=== PATIENT | female | born 1975 | race Caucasian/White ===

== ENCOUNTER 2024-07-11 14:59 | Emergency (ER) | payer OTHER, SELFPAY ==
--- OUTSIDE RECORDS SUMMARY | 2024-07-11 15:01 | XMS_ITS | Encounter Summary ---
Author Organization [facility] Healthcare Address [address] [place] [address] Care Team Providers Care [employer]ayer Name Role Phone Marcin Norwood Primary Care Provider [phone] Encounter Details Date Type Department Care Team (Late st Contact Info) Description 05/19/2024 Results Follow-Up [facility] Diabetes Endocrine Care at [address] [place] [phone] Domonique Burch, TECHNICAL SALES MANAGER [address] [facility] [address] [place] [address] Social History Tobacco Use Types Packs/Day Years Used Date Smoking Tobacco: Former Cigarettes Smokeless Tobacco: Never Comments:Pt will have a Ciga rello occasionally Once a month Alcohol Use Standard Drinks/Week Comments Yes 0 (1 standard drink = 0.6 oz pur e alcohol) [facility] Utilities Answer Date Recorded In the past 12 months has [employer], gas, oil, or water [employer] threatened to shut off services in your home? No 01/03/2024 Social Connection and Isolat ion Panel [NHANES] Answer Date Recorded In a typical week, how many times do you talk on the phone with family, friends, or neighbors? More than three times a week 01/03/2024 How often do you get togethe r with friends or relatives? More than three times a week 01/03/2024 How often do you attend [facility] or buddhist services? Never 01/03/2024 Do you belong to any clubs o r organizations such as mu-ism groups, unions, fraternal or athletic groups, or school groups? No 01/03/2024 How often do you attend meet ings of the clubs or organizations you belong to? Never 01/03/2024 Are you , , di vorced, , never , or living with a partner? 01/03/2024 AUDIT-C Answer Date Recorded Q1: How often do you have a drink containing alcohol? Never 02/07/2024 Q2: How many drinks containi ng alcohol do you have on a typical day when you are drinking? Patient does not drink Q3: How often do you have si x or more drinks on one occasion? Never 02/07/2024 Overall Financial Resource Strain (CARDIA) Answe r Date Recorded How hard is it for you to pa y for the very basics like food, housing, medical care, and heating? Not hard at all 01/03/2024 Hunger Vital Sign Answer Date Recorded Within the past 12 months, y ou worried that your food would run out before you got the money to buy more. Never true 01/03/20 24 Within the past 12 months, t he food you bought just didn't last and you didn't have money to get more. Never true 01/03/2024 PRAPARE - Transportation Answer Date Re corded In the past 12 months, has l ack of transportation kept you from medical appointments or from getting medications? No 12/17 In the past 12 months, has l ack of transportation kept you from meetings, work, or from getting things needed for daily living? No 01/03/2024 Housing Stability Vital Sign Answer Manuelito e Recorded In the last 12 months, was t here a time when you were not able to pay the mortgage or rent on time? No 01/03/2024 In the past 12 months, how m any times have you moved where you were living? 0 01/03/2024 At any time in the past 12 m [facility], were you homeless or living in a prison (including now)? No 01/03/2024 Personal Safety Answer Date Recorded Have you ever been in or are you currently in a harmful physical or emotional relationship or is someone making you feel afraid or unsafe? 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
--- OUTSIDE RECORDS SUMMARY | 2024-07-11 15:02 | XMS_ITS | Referral Summary ---
Author Organization [facility] Address [address] [place] [address] Care Team Providers Care Angular Developer Name Role Phone Marcin Norwood Primary Care Provider [phone] Encounters Date Type Department Care Team Description 05/19/2024 Results Follow-Up [facility] Diabetes Endocrine Care at [address] [address] Domonique Liriano NP 05/16/2024 8:50 AM SENIOR BUSINESS BROKER - 05/16/2024 11:59 PM SENIOR BUSINESS BROKER Hospital Encounter [address] [id number] Type 2 diabetes mellitus with microalbuminuria, without long-term current use of insulin (HCC) Discharge Disposition: Discharge to home or self care 05/16/2024 8:45 AM SENIOR BUSINESS BROKER Lab [facility] Outpatient Lab at [address] [address] Type II diabetes mellitus with renal manifestations (HCC) (Primary Dx); Proteinuria 05/16/2024 Orders Only [facility] Diabetes Endocrine Care at [address] [address] ProviderYanira MD 05/16/2024 8:00 AM SENIOR BUSINESS BROKER Office Visit [facility] Medical [facility] Diabetes Endocrine Care at [address] [address] Domonique Liriano, JOSELUIS Type 2 diabetes mellitus with microalbuminuria, without long-term current use of insulin (HCC) (Primary Dx); Hyperlipidemia associated with type 2 diabetes mellitus (HCC); Acquired hypothyroidism; Primary hypertension; Status post sleeve gastrectomy; Class 3 severe obesity due to excess calories with serious comorbidity and body mass index (BMI) of 40.0 to 44.9 in adult (HCC) 05/13/2024 8:30 AM SENIOR BUSINESS BROKER Office Visit [facility] [address] [facility] [address] [place] [address] Adrián Romero MD Status post sleeve gastrectomy (Primary Dx) 05/06/2024 8:30 AM SENIOR BUSINESS BROKER - 05/06/2024 11:59 PM SENIOR BUSINESS BROKER Hospital Encounter [facility] Nutrition and Diabetic Education [address] [facility] [place] [facility] [id number] [place] [address] Sierra, Fabby Perales RD Discharge Disposition: Discharge to home or self care from Last 3 Months Allergies No known active allergies Medications levothyroxine (SYNTHROID) 112 mcg tablet TK 1 T PO D 6 Active citalopram (CeleXA) 40 mg tablet Take 1 tablet (40 mg total) by mouth daily 2 Active OneTouch Verio Flex meter misc USE TO TEST BLOOD SUGARS DAILY. E11.65 100 each 3 3 Active pregabalin (LYRICA) 150 mg capsule Take 1 capsule (150 mg total) by mouth 2 (two) times a day 3 Active polyethylene glycol (MIRALAX) 17 gram/dose bulk powder TAKE 17 GRAMS MIXED DIRECTED ONCE DAILY NEEDED 510 g 4 3 Active blood glucose diagnostic (OneTouch Verio test strips) strip Use to test blood sugar 1 Time/day. 400 each 3 4 Active atorvastatin (LIPITOR) 40 mg tablet TAKE 1 TABLET BY MOUTH DAILY 90 tablet 3 4 Active dulaglutide (TRULICITY) 1.5 mg/0.5 mL pen injectorIndicat ions:type 2 diabetes mellitus Inject 0.5 mL (1.5 mg total) under the skin every 7 days E11.65 2 mL 11 4 Active Alcohol Prep Pads pads, medicatedIndica tions:Type 2 diabetes mellitus with microalbuminuri a, without long-term current use of insulin (HCC) USE ONE TOPICALLY DAILY 100 each 4 4 Active docusate sodium (COLACE) 100 mg capsuleIndicati ons:constipatio n Take 1 capsule (100 mg total) by mouth 2 (two) times a day for 14 days 28 capsule 4 Active famotidine (PEPCID) 20 mg tablet Take 1 tablet (20 mg total) by mouth 2 (two) times a day 60 tablet 11 4 01/03/20 25 Active OneTouch Delica Plus Lancet 33 gauge misc USE TO CHECK BLOOD SUGAR 3 TIME DAILY 300 each 3 4 Active losartan (COZAAR) 50 mg tablet TAKE 1 TABLET (50 MG TOTAL) BY MOUTH DAILY 90 tablet 3 4 07/03/19 25 Discontinu ed(Therapy completed) Active Problems Problem Noted Date Diagnosed Date Status post sleeve gastrectomy 05/13/2024 Assessment & Plan (05/13/2024 8:57 AM SENIOR BUSINESS BROKER): Continue small frequent meals encouraging protein intake. Continue multivitamin, calcium and vitamin-D. Exercise as tolerated. We will see the patient back in 6 months. Continue your follow up with the dietitian. Call us back with any further questions or concerns. Class 3 severe obesity due t o excess calories with serious comorbidity and body mass index (BMI) of 40.0 to 44.9 in adult 12/21/2023 Sleep apnea in adult 09/05/2023 Heartburn 09/04/2023 Hyperlipidemia associated with type 2 diabetes m sanjana 05/17/2023 Assessment & Plan (11/15/2023 8:51 AM CDT): This is a chronic condition which is at goal . Goal is LDL less than 70 Continue atorvastatin Encouraged to eat healthy, include fresh fruits and vegetables daily and avoid eating fried foods more than once per week. Assessment & Plan (05/17/2023 8:35 AM SENIOR BUSINESS BROKER): This is a chronic condition which is not at goal of LDL less than 70 Continue atorvastatin Encouraged to eat healthy, include fresh fruits and vegetables daily and avoid eating fried foods more than once per week. Encouraged to take medications as prescribed. Lymphedema associated with obesity 02/13/2023 Assessment & Plan (02/13/2023 10:19 AM SENIOR BUSINESS BROKER): This is a chronic condition which is worse on the left than the right Occupational [facility] ordered at [facility] for evaluation. Primary hypertension 11/13/2022 Assessment & Plan (11/15/2023 8:52 AM CDT): This is a chronic condition which is at goal. Goal is less than 140/90 Continue losartan/HCTZ Encouraged to monitor weight and B/P at home. Encouraged to void caffeine and excessive alcohol consumption as this will elevate B/P Assessment & Plan (05/17/2023 8:33 AM SENIOR BUSINESS BROKER): This is a chronic condition which is at goal of less than 140/90 Personally reviewed labs. Continue losartan, hydrochlorothiazide Encouraged to monitor weight and B/P at home Encouraged to take medications as prescribed. Assessment & Plan (02/13/2023 9:11 AM SENIOR BUSINESS BROKER): This is a chronic condition which is at goal of less than 140/90 Personally reviewed labs. Continue losartan hydrochlorothiazide Encouraged to monitor weight and B/P at home Encouraged to take medications as prescribed. Assessment & Plan (11/13/2022 9:57 AM CDT): This is a chronic condition which is at goal of less than 140/90 Reports dizziness with current medication regimen Personally reviewed labs. Stop atenolol/chlorthalidone. Starts losartan 50 mg with 25 mg of hydrochlorothiazide Encouraged to monitor weight and B/P at home and call blood pressures in 1 week Encouraged to take medications as prescribed. Cellulitis of right lower extremity 12/01/2021 Irritable bowel syndrome wit h both constipation and diarrhea 11/23/2021 Gastroesophageal reflux disease without esophagi tis 11/23/2021 Intermittent diarrhea 11/03/2021 Colon cancer screening 11/03/2021 Overview (11/03/2021): Added automatically from request for surgery [id number] Chronic constipation 11/02/2021 Assessment & Plan (11/02/2021 9:15 AM CDT): This is a chronic condition which has been going on for 3 years. Has bowel movement 1-2 times/week. Sometime alternating diarrhea. amb referral to GI. Type 2 diabetes mellitus wit h microalbuminuria, without long-term current use of insulin 10/11/2021 Assessment & Plan (11/15/2023 8:50 AM CDT): This is a chronic condition which is at goal without hypoglycemia . Goal is less than 7%. Personally reviewed most recent A1c - Lab Results Component Value Date HGBA1C 5.1 11/15/2023 Personally reviewed POC blood sugar- at goal of 80-180 Lab Results Component Value Date POCGLU 105 11/15/2023 Medication- reduce Trulicity to 1.5 mg postoperatively. Do not take till 2 weeks after surgery and less approved by Dr. Romero Monitor blood sugar 3 times a week and for signs or symptoms of hypoglycemia Encouraged annual eye exam. Monofilament foot exam completed. Protective senses intact eGFR- 77 Kidney function-normal Urine microalbumin/creatinine ratio - elevated. Goal is <30. Continue losartan, hydrochlorothiazide Assessment & Plan (06/14/2023 10:59 AM CDT): Continue with Trulicity and watching your glycemic control. Assessment & Plan (05/17/2023 8:33 AM SENIOR BUSINESS BROKER): This is a chronic condition which is at goal of less than 7%. Personally reviewed most recent A1c - Lab Results Component Value Date HGBA1C 5.3 05/17/2023 Personally reviewed POC blood sugar- at goal 80-180 Lab Results Component Value Date POCGLU 98 05/17/2023 Medication- Increase trulicity 4.5mg weekly Monitor blood sugar daily. Encouraged annual eye exam. Monofilament foot exam completed. protective senses intact. Neuropathy controlled with Lyrica Personally reviewed CMP eGFR- 78 Kidney function- abnormal Urine microalbumin/creatinine ratio - not at goal <30 treated with losartan, hydrochlorothiazide B/P today- at goal of <140/90. continue losartan, hydrochlorothiazidet Personally reviewed lipid panel. Not at Goal of less than 70. Continue atorvastatin Assessment & Plan (02/13/2023 9:10 AM SENIOR BUSINESS BROKER): This is a chronic condition which is at goal of less than 7%. Personally reviewed most recent A1c - Lab Results Component Value Date HGBA1C 5.4 02/13/2023 Personally reviewed POC blood sugar- at goal 80-180 Lab Results Component Value Date POCGLU 105 02/13/2023 Medication- Continue trulicity 3mg weekly Monitor blood sugar daily Encouraged annual eye exam. Monofilament foot exam completed. protective senses intact Treated with Lyrica Personally reviewed CMP eGFR- 78 Kidney function- normal Urine microalbumin/creatinine ratio - at goal <30 treated with losartan, hydrochlorothiazide B/P today- at goal of <140/90. continue losartan hydrochlorothiazide Personally reviewed lipid panel. Not at Goal of less than 70. Continue atorvastatin Assessment & Plan (11/13/2022 9:54 AM CDT): This is a chronic condition which is at goal of less than 7%. Personally reviewed most recent A1c - Lab Results Component Value Date HGBA1C 5.5 07/14/2022 Personally reviewed POC blood sugar- at goal 80-180 Lab Results Component Value Date POCGLU 117 07/14/2022 Medication- Continue continue Trulicity 1.5 mg weekly.- to promote further weight loss Monitor blood sugar daily Encouraged annual eye exam. Monofilament foot exam completed. protective senses intact Personally reviewed CMP eGFR- 78 Kidney function- abnormal Urine microalbumin/creatinine ratio - not at goal <30 not treated with TYRESE/ARB. Stop atenolol/ chlorthalidone and start losartan 50mg daily and HCTZ 25mg daily. B/P today- at goal of <140/90. continue TYRESE/ARB Stop atenolol/ chlorthalidone and start losartan 50mg daily and HCTZ 25mg daily. Personally reviewed lipid panel. Not at Goal of less than 70. Increase atorvastatin. Assessment & Plan (07/14/2022 9:39 AM CDT): This is a chronic condition which is at goal of less than 7%. Without hypoglycemia Personally reviewed most recent A1c - Lab Results Component Value Date HGBA1C 5.5 07/14/2022 Personally reviewed POC blood sugar- at goal 80-180 Lab Results Component Value Date POCGLU 117 07/14/2022 Medication- Continue Trulicity 1.5 mg weekly Monitor blood sugar daily Encouraged annual eye exam. Monofilament foot exam completed. loss of protective senses. Urine microalbumin/creatinine ratio - at goal <30 Personally reviewed CMP eGFR- 94 Kidney function- normal B/P today- at goal of <140/90. Personally reviewed lipid panel. at Goal of less than 70. Not taking statin therapy at this time Assessment & Plan (03/16/2022 9:33 AM SENIOR BUSINESS BROKER): This is a chronic condition which is improving and at goal of less than 7%- due to weight loss. Personally reviewed most recent A1c - Lab Results Component Value Date HGBA1C 6.0 03/16/2022 Personally reviewed blood sugar- POC-125 blood sugar at goal. Medication- increase Trulicity 1.5mg weekly- Denies history of pancreatitis. Monitor blood sugar daily alternating am/pm. Encouraged annual eye exam. Monofilament foot exam completed, protective senses intact Urine microalbumin/creatinine ratio - At goal <30. not treated with TYRESE/ARB Personally reviewed BUN, creatinine, GFR-94 -Kidney function- normal, B/P today- at goal of <140/90 after 5 minutes of rest. Not on TYRESE/ARB Personally reviewed lipid panel. At goal of less than 70. Continue on atorvastatin. Has seen Diabetes Education. Assessment & Plan (12/14/2021 10:54 AM CDT): This is a chronic condition which is improving but not at goal. Personally reviewed most recent A1c - Lab Results Component Value Date HGBA1C 8.7 (H) 09/09/2021 Reports A1c last week with Julio Norwood was close to goal. Will obtain most recent labs. goal less than 7% Personally reviewed blood sugar- POC-128 blood sugar at goal. Lab Results Component Value Date GLUCOSE 125 12/09/2021 Medication- Continue on Trulicity 0.75mg weekly- Denies history of pancreatitis. Reports constipation. Will not increase until constipation is evaluated. Monitor blood sugar daily alternating am/pm. Encouraged annual eye exam. Monofilament foot exam completed, protective senses intact Urine microalbumin/creatinine ratio - Needed unable to void. goal <30. not treated with TYRESE/ARB Personally reviewed BUN, creatinine, GFR-94 -Kidney function- normal, B/P today- at goal. Goal is <140/90. Not on TYRESE/ARB Personally reviewed lipid panel. Goal of less than 70. at goal. Continue on atorvastatin. Has seen Diabetes Education. Assessment & Plan (11/02/2021 11:13 AM CDT): This is a chronic condition which is not at goal. Personally reviewed most recent A1c - Lab Results Component Value Date HGBA1C 8.7 (H) 09/09/2021 goal less than 7% Personally reviewed blood sugar- POC-128 blood sugar at goal. Lab Results Component Value Date GLUCOSE 195 09/09/2021 Medication- Continue on Trulicity 0.75mg weekly- Denies history of pancreatitis. Reports constipation. Will not increase until constipation is evaluated. Monitor blood sugar daily alternating am/pm. Encouraged annual eye exam. Monofilament foot exam completed, protective senses intact Urine microalbumin/creatinine ratio - Needed unable to void. goal <30. not treated with TYRESE/ARB Personally reviewed BUN, creatinine, GFR-91 -Kidney function- normal, B/P today- at goal. Goal is <140/90 and as close to 120/80 as possible. Not on TYRESE/ARB Personally reviewed lipid panel. Goal of less than 70. at goal. Continue on atorvastatin. Referred to Diabetes Education- has appt. Next week. Assessment & Plan (10/11/2021 6:11 PM CDT): This is a chronic condition which is not at goal. Personally reviewed most recent A1c - Lab Results Component Value Date HGBA1C 8.7 (H) 09/09/2021 goal less than 7% Personally reviewed blood sugar- Lab Results Component Value Date GLUCOSE 195 09/09/2021 not at goal 80-180 Medication- Start Trulicity 0.75mg weekly- instructed on use of trulicity pen. Denies history of pancreatitis Monitor blood sugar daily alternating am/pm. Encouraged annual eye exam. Monofilament foot exam completed, protective senses intact Urine microalbumin/creatinine ratio - Needed unable to void. goal <30. not treated with TYRESE/ARB Personally reviewed BUN, creatinine, GFR-91 -Kidney function- normal, B/P today- at goal. Goal is <140/90 and as close to 120/80 as possible. Not on TYRESE/ARB Personally reviewed lipid panel. Goal of less than 70. at goal. Continue on atorvastatin. Referred to Diabetes Education Acquired hypothyroidism 10/11/2021 Assessment & Plan (11/15/2023 8:51 AM CDT): This is a chronic condition which is at goal of TSH between 0.3 to 4.2 mclUnits/ml Lab Results Component Value Date TSH 2.20 06/25/2023 TSH 0.77 11/07/2022 TSH 3.08 03/16/2022 Continue Levothryoxine 112 mcg po daily in am Discussed the importance of taking Levothryoxine on a empty stomach, which means one hour before eating or two hours after eating, food in the stomach will interfere with absorption of Levothyroxine, Calcium, antacids and iron supplements will interfere with the absorption of Levothyroxine, encouraged to take these at a different time of the day. Assessment & Plan (05/17/2023 8:33 AM SENIOR BUSINESS BROKER): This is a chronic condition which is at goal of TSH between 0.3 to 4.2 mclUnits/ml Personally reviewed lab. Lab Results Component Value Date TSH 0.77 11/07/2022 TSH 3.08 03/16/2022 TSH 4.10 12/02/2021 Continue Levothryoxine 112 mcg po daily in am Discussed the importance of taking Levothryoxine on a empty stomach, which means one hour before eating or two hours after eating. Discussed food in the stomach will interfere with absorption of Levothyroxine. Discussed Calcium, antacids and iron supplements will interfere with the absorption of Levothyroxine, encouraged to take these at a different time of the day. Assessment & Plan (11/13/2022 9:11 AM CDT): This is a chronic condition which is not at goal of TSH between 0.3 to 4.2 mclUnits/ml Personally reviewed lab. Lab Results Component Value Date TSH 0.77 11/07/2022 TSH 3.08 03/16/2022 TSH 4.10 12/02/2021 Continue Levothryoxine 112 mcg po daily in am Discussed the importance of taking Levothryoxine on a empty stomach, which means one hour before eating or two hours after eating. Discussed food in the stomach will interfere with absorption of Levothyroxine. Discussed Calcium, antacids and iron supplements will interfere with the absorption of Levothyroxine, encouraged to take these at a different time of the day. Assessment & Plan (07/14/2022 9:40 AM CDT): This is a chronic condition which is at goal of TSH between 0.3 to 4.2 mclUnits/ml Personally reviewed lab. Lab Results Component Value Date TSH 3.08 03/16/2022 TSH 4.10 12/02/2021 TSH 2.11 09/09/2021 Continue Levothryoxine 112 mcg po daily in am Discussed the importance of taking Levothryoxine on a empty stomach, which means one hour before eating or two hours after eating. Discussed food in the stomach will interfere with absorption of Levothyroxine. Discussed Calcium, antacids and iron supplements will interfere with the absorption of Levothyroxine, encouraged to take these at a different time of the day. Assessment & Plan (03/16/2022 9:30 AM SENIOR BUSINESS BROKER): .robert This is a chronic condition which is stable and at goal. Personally reviewed lab. Lab Results Component Value Date TSH 4.10 12/02/2021 TSH 2.11 09/09/2021 TSH 4.27 (H) 03/09/2021 Goal is for TSH to be between 0.3 to 4.2 mclUnits/ml Continue Levothryoxine 112 mcg po daily in am Will repeat TSH reflux to T4 due to weight loss. Discussed the importance of taking Levothryoxine on a empty stomach, which means one hour before eating or two hours after eating. Discussed food in the stomach will interfere with absorption of Levothyroxine. Discussed Calcium, antacids and iron supplements will interfere with the absorption of Levothyroxine, encouraged to take these at a different time of the day. Assessment & Plan (12/14/2021 10:55 AM CDT): This is a chronic condition which is stable and at goal. Personally reviewed lab. Lab Results Component Value Date TSH 4.10 12/02/2021 TSH 2.11 09/09/2021 TSH 4.27 (H) 03/09/2021 Goal is for TSH to be between 0.3 to 4.2 mclUnits/ml Continue Levothryoxine 112 mcg po daily in am Discussed the importance of taking Levothryoxine on a empty stomach, which means one hour before eating or two hours after eating. Discussed food in the stomach will interfere with absorption of Levothyroxine. Discussed Calcium, antacids and iron supplements will interfere with the absorption of Levothyroxine, encouraged to take these at a different time of the day. Assessment & Plan (10/11/2021 6:16 PM CDT): This is a chronic condition which is stable and at goal. Personally reviewed lab. Lab Results Component Value Date TSH 2.11 09/09/2021 TSH 4.27 (H) 03/09/2021 TSH 2.75 03/09/2020 Goal is for TSH to be between 0.3 to 4.2 mclUnits/ml Continue Levothryoxine 112 mcg po daily in am Discussed the importance of taking Levothryoxine on a empty stomach, which means one hour before eating or two hours after eating. Discussed food in the stomach will interfere with absorption of Levothyroxine. Discussed Calcium, antacids and iron supplements will interfere with the absorption of Levothyroxine, encouraged to take these at a different time of the day. Mass of soft palate 10/16/2019 Assessment & Plan (10/16/2019 10:15 AM CDT): Excision of Left soft palate mass in Office Risks and complications: Anesthesia, bleeding, infection, benign versus malignant pathology, recurrence of lesion, injury to arteries, nerves and veins, scarring and need for further treatment Laryngopharyngeal reflux (LPR) 10/16/2019 Assessment & Plan (10/16/2019 10:15 AM CDT): Pepcid (famotidine) 40 mg at bedtime if no improvement in reflux in 6-8 weeks, increase to twice daily LPR discussed and Handout provided Resolved Problems Problem Noted Date Diagnosed Date Resolved Date Class 3 severe obesity due t o excess calories with serious comorbidity and body mass index (BMI) of 50.0 to 59.9 in adult 10/11/2021 Assessment & Plan (02/07/2024 9:39 AM SENIOR BUSINESS BROKER): Continue to advance diet as laid out in post bariatric handout. We have encouraged protein intake above all other p.o.. She can slowly start to increase physical activity as tolerated. Continue multivitamin, calcium and vitamin-D. Continue follow up with the dietitian and support group. We will see her back in 3 months. She will call us sooner if anything changes. Assessment & Plan (01/10/2024 10:30 AM CDT): Continue fluid intake and protein supplementation. No submerging incisions for another week. No heavy lifting for 4 weeks. Multivitamin, calcium and vitamin-D. Continue to advance diet as laid out in post bariatric handout. We will see her back in 1 month. She will call us sooner if anything changes. Assessment & Plan (12/04/2023 10:20 AM CDT): Only thing pending for the patient to submit to insurance for precertification is a drug screen. She has a medical marijuana card so we are awaiting to see if that is going to affect things with her insurance. Once that has been defined she will get her urine drug screen as well as nicotine screen and then we will submit everything to insurance. Continue small frequent meals. Exercise as tolerated. Assessment & Plan (11/15/2023 8:52 AM CDT): This is a chronic condition which has improved Bariatric surgery scheduled for 12/03/2023 Eighteen lbs. Weight loss since last office visit Encouraged healthy eating which includes a low carb diet. Avoiding processed foods, sweets and fried foods. Encouraged 30 minutes of walking at least 5 days per week Discussed that exercise can be broken down into small sessions- for example 2- 15 minutes sessions or 3- 10 minutes sessions. Assessment & Plan (06/14/2023 11:00 AM CDT): Given their past success the patient would be a good candidate for weight loss surgery. We have gone over options such as the bypass and sleeve gastrectomy. We have also discussed risks and benefits such as blood clots, staple line leak as well as new or worsening reflux symptoms. They are in understanding. During this time will have them seen by the dietitian and psych. As we get closer to the time of surgery we will set him up for an EGD to look for hiatal hernia, H pylori or other gastric pathology. We will see them back in 4 weeks. They are in understanding of the plan. We have gone over small frequent meals shooting for a goal calorie intake of around 1600 spread throughout 4-5 meals. We have discussed not eating late at night. We have discussed cardiovascular exercise. Greater than 15 minutes was spent in counseling the patient on diet and exercise with regards to her morbid obesity. Assessment & Plan (05/17/2023 8:34 AM SENIOR BUSINESS BROKER): This is a chronic condition which has slightly improved She has lost an additional 4 lb since her last office visit Increase Trulicity to 4.5 mg weekly Ambulatory referral to Bariatric surgery/Dr. Romero Encouraged continue healthy eating and exercise as tolerated Assessment & Plan (02/13/2023 9:11 AM SENIOR BUSINESS BROKER): This is a chronic condition which continues 7 lb weight loss since last office visit Encouraged increase ambulation Discussed increasing Trulicity but since she is still losing weight we will maintain at current dose Assessment & Plan (02/13/2023 9:07 AM SENIOR BUSINESS BROKER): >>ASSESSMENT AND PLAN FOR BODY MASS INDEX (BMI) 50.0-59.9, ADULT (HCC) WRITTEN ON 03/16/2022 9:30 AM BY DOMONIQUE LIRIANO, JOSELUIS This is a chronic condition which is improving. 36 lbs weight loss over last 5 months Total weight loss = 60lbs. In the last year. Has seen diabetes education and nutritional couseling increased trulicity 1.5mg weekly to promote weight loss. Assessment & Plan (02/13/2023 9:07 AM SENIOR BUSINESS BROKER): >>ASSESSMENT AND PLAN FOR BODY MASS INDEX (BMI) 50.0-59.9, ADULT ([facility]) WRITTEN ON 07/14/2022 9:41 AM BY DOMONIQUE LIRIANO NP This is a chronic condition which is improving Further 22 lb weight loss since last office visit. Total weight loss since 10/07 equals 22 lb Continue Trulicity 1.5 mg Discussed increasing exercise in swimming pool Just walking in the pool . Assessment & Plan (02/13/2023 9:07 AM SENIOR BUSINESS BROKER): >>ASSESSMENT AND PLAN FOR CLASS 3 SEVERE OBESITY DUE TO EXCESS CALORIES WITH SERIOUS COMORBIDITY AND BODY MASS INDEX (BMI) OF 50.0 TO 59.9 IN ADULT ([facility]) WRITTEN ON 11/13/2022 9:54 AM BY DOMONIQUE LIRIANO, JOSELUIS This is a chronic condition which is improving 8 lb weight loss since last office visit Increase Trulicity to 3 mg weekly Encourage continue weight loss and exercise >>ASSESSMENT AND PLAN FOR BODY MASS INDEX (BMI) 50.0-59.9, ADULT ([facility]) WRITTEN ON 11/13/2022 9:54 AM BY DOMONIQUE LIRIANO NP This is a chronic condition which is improving 8 lb weight loss since last office visit Increase Trulicity to 3 mg weekly Encourage continue weight loss and exercise Assessment & Plan (02/13/2023 9:07 AM SENIOR BUSINESS BROKER): >>ASSESSMENT AND PLAN FOR CLASS 3 SEVERE OBESITY DUE TO EXCESS CALORIES WITH SERIOUS COMORBIDITY AND BODY MASS INDEX (BMI) OF 50.0 TO 59.9 IN ADULT ([facility]) WRITTEN ON 12/14/2021 10:54 AM BY DOMONIQUE LIRIANO, COAGULATING BATH MIXER This is a chronic condition which is improving by 13 lb weight loss. Encouraged weight loss and exercise Referred to diabetes education and nutritional couseling Continue trulicity 0.75mg weekly to promote weight loss. >>ASSESSMENT AND PLAN FOR BODY MASS INDEX (BMI) 50.0-59.9, ADULT ([facility]) WRITTEN ON 12/14/2021 10:55 AM BY DOMONIQUE LIRIANO, JOSELUIS This is a chronic condition which is improving. 13 lbs weight loss Has seen diabetes education and nutritional couseling Continue trulicity 0.75mg weekly to promote weight loss. Assessment & Plan (02/13/2023 9:07 AM SENIOR BUSINESS BROKER): >>ASSESSMENT AND PLAN FOR CLASS 3 SEVERE OBESITY DUE TO EXCESS CALORIES WITH SERIOUS COMORBIDITY AND BODY MASS INDEX (BMI) OF 50.0 TO 59.9 IN ADULT ([facility]) WRITTEN ON 11/02/2021 11:14 AM BY DOMONIQUE LIRIANO NP This is a chronic condition which is improving by 14 lb weight loss. Encouraged weight loss and exercise Referred to diabetes education and nutritional couseling Continue trulicity 0.75mg weekly to promote weight loss. >>ASSESSMENT AND PLAN FOR BODY MASS INDEX (BMI) 50.0-59.9, ADULT ([facility]) WRITTEN ON 11/02/2021 11:14 AM BY DOMONIQUE LIRIANO NP This is a chronic condition which is improving. 14 lbs weight loss Referred to diabetes education and nutritional couseling Continue trulicity 0.75mg weekly to promote weight loss. Assessment & Plan (02/13/2023 9:07 AM SENIOR BUSINESS BROKER): >>ASSESSMENT AND PLAN FOR CLASS 3 SEVERE OBESITY DUE TO EXCESS CALORIES WITH SERIOUS COMORBIDITY AND BODY MASS INDEX (BMI) OF 50.0 TO 59.9 IN ADULT ([facility]) WRITTEN ON 10/11/2021 6:13 PM BY DOMONIQUE LIRIANO NP This is a chronic condition Encouraged weight loss and exercise Referred to diabetes education and nutritional couseling Start trulicity 0.75mg weekly to promote weight loss. >>ASSESSMENT AND PLAN FOR BODY MASS INDEX (BMI) 50.0-59.9, ADULT ([facility]) WRITTEN ON 10/11/2021 6:14 PM BY DOMONIQUE LIRIANO NP This is a chronic condition Encouraged weight loss and exercise Referred to diabetes education and nutritional couseling Start trulicity 0.75mg weekly to promote weight loss. Immunizations Immunization Administration Dates Next Due Pfizer SARS-CoV-2 Monovalent Vaccination (12+ Yrs) PURPLE 12/02/2021(Deferred: Patient Refused) Social History Tobacco Use Types Packs/Day Years Used Date Smoking Tobacco: Former Cigarettes Smokeless Tobacco: Never Tobacco Cessation:Counseling Given: Not Answered Comments:Pt will have a Cigarello occasionally Once a month Alcohol Use Standard Drinks/Week Comments Yes 0 (1 standard drink = 0.6 oz pur e alcohol) [facility] Utilities Answer Date Recorded In the past 12 months has th e electric, gas, oil, or water company threatened to shut off services in your [...] week 01/03/2024 How often do you attend chur ch or yarsanism services? Never 01/03/2024 Do you belong to any clubs o r organizations such as lutheran groups, unions, fraternal or athletic groups, or [...] any time in the past 12 m [facility], were you homeless or living in a [place] health care facility (including now)? No 01/03/2024 Personal Safety Answer Date Recorded Have you ever been in or are you currently in a harmful physical or emotional relationship or is someone making you feel afraid or unsafe? Denies 01/02/2024 Comments No Sex and Gender Information Value Date Recorded Sex Assigned at Not on file Legal Sex Female 7:20 PM SENIOR BUSINESS BROKER Gender Identity Female 10/13/2019 10:18 PM CDT Sexual Orientation Straight 10/13/2019 10 :18 PM CDT Last Filed Vital Signs Vital Sign Reading Time Taken Comments Blood Pressure 106/60 05/16/2024 8:14 AM SENIOR BUSINESS BROKER Pulse 115 05/13/2024 8:34 AM SENIOR BUSINESS BROKER Temperature 36.3 C (97.3 F) 05/13/2024 8:34 AM SENIOR BUSINESS BROKER Respiratory Rate 20 01/03/2024 11:41 AM CDT Oxygen Saturation 99% 05/13/2024 8:34 AM SENIOR BUSINESS BROKER Inhaled Oxygen Concentration - - Weight 113.4 kg (250 lb) 05/16/2024 8:14 AM SENIOR BUSINESS BROKER Height 165.1 cm (5' 5 ) 05/16/2024 8:14 AM SENIOR BUSINESS BROKER Body Mass Index 41.6 05/16/2024 8:14 AM SENIOR BUSINESS BROKER Plan of Treatment Not on file Procedures Procedure Name Priority Date/Time Associated Diagnosis Comments EGFR Routine 05/16/2024 8:50 AM SENIOR BUSINESS BROKER Type 2 diabetes mellitus with microalbuminuria, without long-term current use of insulin (HCC) THYROID FUNCTION CASCADE Routine 05/16/2024 8:50 AM SENIOR BUSINESS BROKER Type 2 diabetes mellitus with microalbuminuria, without long-term current use of insulin (HCC) LIPID PANEL Routine 05/16/2024 8:50 AM SENIOR BUSINESS BROKER Type 2 diabetes mellitus with microalbuminuria, without long-term current use of insulin (HCC) COMPREHENSIVE METABOLIC PANEL Routine 05/16/2024 8:50 AM SENIOR BUSINESS BROKER Type 2 diabetes mellitus with microalbuminuria, without long-term current use of insulin (HCC) ALBUMIN CREATININE RATIO, URINE Routine 05/16/2024 8:50 AM SENIOR BUSINESS BROKER Type 2 diabetes mellitus with microalbuminuria, without long-term current use of insulin (HCC) DIABETIC EYE EXAM Routine 05/16/2024 8:2 6 AM SENIOR BUSINESS BROKER POCT HEMOGLOBIN A1C Routine 05/16/2024 8 :19 AM SENIOR BUSINESS BROKER Type 2 diabetes mellitus with microalbuminuria, without long-term current use of insulin (HCC) POCT GLUCOSE Routine 05/16/2024 8:14 AM SENIOR BUSINESS BROKER Type 2 diabetes mellitus with microalbuminuria, without long-term current use of insulin (HCC) DIABETIC EYE EXAM Routine 05/02/2024 8:2 7 AM SENIOR BUSINESS BROKER SCREENING MAMMOGRAM BILATERAL W JEAN Schedule Routine, Read Routine (OP Routine) 12/08/2023 10:49 AM CDT Screening mammogram, encounter for COLONOSCOPY 11/14/2021 12:21 PM CDT from Last 3 Months or Most Recently Relevant to Health Maintenance Results * eGFR (05/16/2024 8:50 AM SENIOR BUSINESS BROKER) eGFR >90 >=60 mL/min/1. 73 m2 Comment: Interpretive Data Reference Interval Normal >/= 90 mL/min/1.73m2 Mildly decreased* 60 - 89 mL/min/1.73m2 Mildly to moderately decreased 45 - 59 mL/min/1.73m2 Moderately to severely decreased 30 - 44 mL/min/1.73m2 Severely decreased 15 - 29 mL/min/1.73m2 Kidney Failure < 15 mL/min/1.73m2 *Relative to young adult level Estimated glomerular filtration rate is determined by the 2020 CKD-EPI equation recommended by the National Kidney Foundation (A Unifying Approach to GFR Estimation: Recommendations of the NKF-ASK Task Force on Reassessing the Inclusion of Race in Diagnosing Kidney Disease, JASN 2020). The CKD-EPI equation should not be used for patients with unstable renal function and has not been validated in children and those over 70. Current interpretive data was last reviewed 2021. Blood 05/16/2024 8:50 AM SENIOR BUSINESS BROKER 05/16/2024 3:53 PM SENIOR BUSINESS BROKER Domonique Liriano NP LAB BLOOD ORDERABLES Final Resu lt Performing Organization Address [facility] Phone Number [facility] [id number] [place] [address] * Thyroid Function Hitchcock (05/16/2024 8:50 AM SENIOR BUSINESS BROKER) TSH 0.34 0.30 - 4.20 mcIUnit/mL Blood 05/16/2024 8:50 AM SENIOR BUSINESS BROKER 05/16/2024 3:49 PM SENIOR BUSINESS BROKER Domonique Liriano NP LAB BLOOD ORDERABLES Final Resu lt Performing Organization Address [facility] Phone Number [facility] [id number] [place] [address] * Albumin Creatinine Ratio, Urine (05/16/2024 8:50 AM SENIOR BUSINESS BROKER) Albumin Ur <12.0 mg/L Comment: Interpretive Data No reference range established. Current interpretive data was last revised 2018. Creatinine Ur 211.8 mg/dL [facility] Comment: Interpretive Data No reference range established. Current interpretive data was last revised 2018. Albumin Creatinine Ratio, Ur <6 1 - 29 mg/g [facility] Urine 05/16/2024 8:50 AM SENIOR BUSINESS BROKER 05/16/2024 3:49 PM SENIOR BUSINESS BROKER Domonique Liriano NP LAB URINE ORDERABLES Final Resu lt [facility] [id number] [facility] Department [place] [address] * Lipid panel (05/16/2024 8:50 AM SENIOR BUSINESS BROKER) Cholesterol 110 30 - 199 mg/dL Comment: Interpretive Data Ages < or = 19 years Acceptable: <170 mg/dL Borderline high: 170-199 mg/dL High: >or= 200 mg/dL Ages > or = 20 years Desirable: <200 mg/dL Borderline high: 200-239 mg/dL High: >or= 240 mg/dL Literature References: 1. Expert Panel on Integrated Guidelines for Cardiovascular Health and Risk Reduction in Children and Adolescents. Pediatrics 2011;128:S213 2. NCEP Expert Panel. Circulation 2004;110:227 Current Interpretive Data was last revised on 2017. Triglycerides 58 <=149 mg/dL [facility] MCGRAW Comment: Interpretive Data Ages < or = 9 years Acceptable: <75 mg/dL Borderline high: 75-99 mg/dL High: >or= 100 mg/dL Ages 10 to 20 years Acceptable: <90 mg/dL Borderline high: 90-129 mg/dL High: >or= 130 mg/dL Ages > or = 20 years Desirable: <150 mg/dL Borderline high: 150-199 mg/dL High: 200-499 mg/dL Very high: >or= 499 mg/dL Literature References: 1. Expert Panel on Integrated Guidelines for Cardiovascular Health and Risk Reduction in Children and Adolescents. Pediatrics 2011;128:S213 2. NCEP Expert Panel. Circulation 2004;110:227 Current Interpretive Data was last revised on 2017. HDL 50 >=40 mg/dL [facility] MCGRAW Comment: Interpretive Data Ages < or = 19 years Acceptable: >45 mg/dL Borderline low: 40-45 mg/dL Low: <40 mg/dL Ages > or = 20 years Desirable: >or= 60 mg/dL Low: <40 mg/dL Literature References: 1. Expert Panel on Integrated Guidelines for Cardiovascular Health and Risk Reduction in Children and Adolescents. Pediatrics 2011;128:S213 2. NCEP Expert Panel. Circulation 2004;110:227 Current Interpretive Data was last revised on 2017. LDL, calculated 47 <=129 mg/dL [facility] M[facility] Comment: Interpretive Data Ages < or = 19 years Acceptable: <110 mg/dL Borderline high: 110-129 mg/dL High: >or= 130 mg/dL Ages > or = 20 years Optimal: <100 mg/dL Near optimal: 100-129 mg/dL Borderline high: 130-159 mg/dL High: >160 mg/dL Calculated using the Dave LDL-C estimating equation. This equation was implemented on 2023. Prior to this date LDL-C was estimated using the Friedewald equation. Literature References: 1. Expert Panel on Integrated Guidelines for Cardiovascular Health and Risk Reduction in Children and Adolescents. Pediatrics 2011;128:S213 2. NCEP Expert Panel. Circulation 2004;110:227 3. Dave M et al. GRAHAM Cardiol. 2020 July 17;5(5):540-548. doi: 10.1001/jamacardio.2020.0013 Current Interpretive Data was last revised on 2023. Non-HDL Cholesterol 60 mg/dL [facility] Comment: Interpretive Data Ages < or = 19 years Acceptable: <120 mg/dL Borderline high: 120-144 mg/dL High: >145 mg/dL Ages > or = 20 years When triglycerides are >200 mg/dL, Non-HDL cholesterol is a secondary target of therapy with treatment goals that are 30 mg/dL greater than the LDL cholesterol target. Literature References: 1. Expert Panel on Integrated Guidelines for Cardiovascular Health and Risk Reduction in Children and Adolescents. Pediatrics 2011;128:S213 2. NCEP Expert Panel. Circulation 2004;110:227 Current Interpretive Data was last revised on 2017. Chol/HDL ratio 2 [facility] Blood 05/16/2024 8:50 AM SENIOR BUSINESS BROKER 05/16/2024 3:49 PM SENIOR BUSINESS BROKER Narrative [facility] - 05/16/2024 5:08 PM SENIOR BUSINESS BROKER These lab test should be done fasting. This means do not eat or drink for at least 12 hours prior to getting your blood drawn. Has the patient been fasting for 8 hours or more?->Yes us Domonique Liriano COAGULATING BATH MIXER LAB BLOOD ORDERABLES Final Resu lt [facility] [id number] Department [place] [address] * (ABNORMAL) Comprehensive metabolic panel (05/16/2024 8:50 AM SENIOR BUSINESS BROKER) Sodium 140 135 - 145 mmol/L Potassium, pl 3.8 3.3 - 4.9 mmol/L [facility] Chloride 101 97 - 110 mmol/L [facility] CO2 28 22 - 32 mmol/L [facility] Anion gap 11 2 - 15 mmol/L [facility] BUN 15 6 - 25 mg/dL [facility] Creatinine 0.67 0.60 - 1.10 mg/dL [facility] Glucose 84 70 - 199 mg/dL [facility] Comment: Interpretive Data Fasting glucose >/= 126 mg/dl is diagnostic for diabetes. Fasting is defined as no caloric intake for at least 8 hours. Fasting glucose between 100 mg/dl to 125 mg/dl is diagnostic of prediabetes. In a patient with classic symptoms of hyperglycemia or hyperglycemic crisis, a random glucose >/= 200 mg/dl is diagnostic for diabetes. In the absence of unequivocal hyperglycemia, results should be confirmed by repeat testing. The classification and Diagnosis of Diabetes Diabetes Care 2021; 46: S19-S40. Current interpretive data was last revised 2022. Calcium 9.9 8.5 - 10.3 mg/dL [facility] Bilirubin, total 1.3(H) 0.1 - 1.2 mg/dL [facility] Protein, pl 7.1 6.5 - 8.5 g/dL [facility] Albumin 4.2 3.5 - 5.0 g/dL [facility] Alk phos 80 40 - 130 Units/L [facility] ALT 23 7 - 45 Units/L [facility] AST 24 10 - 45 Units/L [facility] Blood 05/16/2024 8:50 AM SENIOR BUSINESS BROKER 05/16/2024 3:49 PM SENIOR BUSINESS BROKER us Domonique Liriano COAGULATING BATH MIXER LAB BLOOD ORDERABLES Final Resu lt [facility] [id number] Department [place] [address] * Diabetic Eye Exam (05/16/2024 8:26 AM SENIOR BUSINESS BROKER) us Historical Provider HEALTH MAINTENANCE Final Result * POCT hemoglobin A1c (05/16/2024 8:19 AM SENIOR BUSINESS BROKER) Hemoglobin A1C, POC 5.0 4.0 - 5.6 % Blood 05/16/2024 8:19 AM SENIOR BUSINESS BROKER Result [facility] Domonique Liriano NP POINT OF CARE TEST ORDERABLES F inal Result * POCT glucose (05/16/2024 8:14 AM SENIOR BUSINESS BROKER) Glucose Blood, POC 116 mg/dL Blood 05/16/2024 8:14 AM SENIOR BUSINESS BROKER Result [facility] Domonique Liriano COAGULATING BATH MIXER POINT OF CARE TEST ORDERABLES F inal Result * Diabetic Eye Exam (05/02/2024 8:27 AM SENIOR BUSINESS BROKER) Result [facility] EMERGENCY DEPARTMENT Final Result * (ABNORMAL) Screening Mammogram Bilateral W Jean (12/08/2023 10:49 AM CDT) Anatomical Region Laterality Modality Breast Bilateral Mammography 12/10/2023 8:25 AM CDT Impressions 12/10/2023 8:25 AM CDT 1. Small asymmetry in the inner left breast at anterior depth on CC view. Further evaluation with left unilateral diagnostic mammogram, and possible sonogram is recommended. 2. No new suspicious findings identified in the right breast. BI-RADS: 0 - Additional imaging evaluation is necessary. The patient has been or will be contacted. Electronically signed by: KAMALA LUCIA Narrative 12/10/2023 8:25 AM CDT EXAMINATION: SCREENING MAMMOGRAM BILATERAL W JEAN ORDERING HEALTHCARE PROVIDER: SELF SCREENING MAMMOGRAM HISTORY: Routine screening mammography. COMPARISON: 09/16/2022, 03/24/2020, 03/02/2017. TECHNIQUE: CC and MLO views of both breasts were obtained with digital technique using digital breast tomosynthesis with C view. Computer aided detection was utilized. FINDINGS: DENSITY: The breasts are almost entirely fatty. BREASTS: Small asymmetry is identified in the inner left breast at anterior depth on CC view. No definite correlate is seen for this finding on the MLO view. There is no other new suspicious finding in either breast on mammogram. us Self Screening Mammogram IMG MAMMO PROCEDURES Fi nal Result * COLONOSCOPY (11/14/2021 12:21 PM CDT) Anatomical Region Laterality Modality Other Narrative Procedure Note Gavi Osorio MD - 11/14/2021 12:21 PM CDT [facility] Patient Name: Della Zhao Procedure Date: 11/14/2021 12:21 PM Date of : 1975 Admit Type: Outpatient Age: 46 Gender: Female Attending MD: Gavi Osorio M.D. Room: [facility] ENDOSCOPY ROOM 1 Note Status: Finalized Patient Profile: This is a 46 year old female. No family history of colon cancer. She has complaints of chronic constipation Procedure: Colonoscopy Indications: Screening for colorectal malignant neoplasm, Thisis the patient's first colonoscopy Referring MD: ELADIO Watkins Providers: Gavi Osorio M.D. Impression: - The entire examined colon is normal. - Internal hemorrhoids. - No specimens collected. Recommendation: - Repeat colonoscopy in 10 years for screening purposes. - Continue present medications. Follow-up in the GI office as scheduled. Medicines: Monitored Anesthesia Care Complications: No immediate complications. Estimated Blood Loss: Estimated blood loss: none. Procedure: Pre-Anesthesia Assessment: - Prior to the procedure, a History and Physicalwas performed, and patient medications and allergieswere reviewed. The patient's tolerance of previous anesthesia was also reviewed. The risks andbenefits of the procedure and the sedation options and risks were discussed with the patient. All questions were answered, and informed consent was obtained. Prior Anticoagulants: The patient has taken noanticoagulant or antiplatelet agents. ASA Grade Assessment: III -A patient with severe systemic disease. Afterreviewing the risks and benefits, the patient was deemed in satisfactory condition to undergo the procedure. The benefits, risks and alternatives of theprocedure and sedation were discussed and informed consentwas obtained. All questions were answered. Please referto the signed informed consent document in the medical record. The bowel preparation used was Miralax and bisacodyl tablets via split dose instruction. The scope was passed under direct vision. The Pediatric Colonoscope [id number]-[id number] was introducedthrough the anus and advanced to the the cecum, identifiedby appendiceal orifice and ileocecal valve. Thequality of the bowel preparation was excellent. Bowel prepwas administered using a split dose. Findings: The perianal and digital rectal examinations were normal. The cecum appeared normal. The colon (entire examined portion) appeared normal. No polyps and no mass lesions noted. The rectum was unremarkable. Internal hemorrhoids were found during retroflexion. The hemorrhoids were small. Electronically signed by Gavi Osorio M.D. Gavi Osorio M.D. 11/14/2021 1:29:55 PM Number of Addenda: 0 Note Initiated On: 11/14/2021 12:21 PM Procedure Code(s): --- Professional --- 09969, Colonoscopy, flexible; diagnostic, including collection of specimen(s) by brushing or washing, when performed (separateprocedure) Diagnosis Code(s): --- Professional --- Z12.11, Encounter for screening for malignant neoplasm of colon K64.8, Other hemorrhoids CPT copyright 2020 [employer]. All rights reserved. The codes documented in this report are preliminary and upon fast food attendant reviewmay be revised to meet current compliance requirements. Recognized by the [employer] for promoting quality in endoscopy Gavi Osorio MD ENDOSCOPY PROCEDURES Final Result from Last 3 Months or Most Recently Relevant to Health Maintenance Insurance [facility] Advance Directives For more information, please contact: [phone] * Full Code (Latest Code Status on File) Date Activated Date Inactivated Comments 01/02/2024 12:35 PM 01/03/2024 5:48 PM * Full Code Date Activated Date Inactivated Comments 09/18/2023 12:33 PM 09/18/2023 6:36 PM * Full Code Date Activated Date Inactivated Comments 09/18/2023 12:33 PM 09/18/2023 12:33 PM * Full Code Date Activated Date Inactivated Comments 12/01/2021 3:03 PM 12/03/2021 5:36 PM * Full Code Date Activated Date Inactivated Comments 11/14/2021 11:44 AM 11/14/2021 6:16 PM Care Teams Angular Developer Relationship Specialty Start Date End Date Marcin Norwood PA [address] [place] [address] PCP - General Family Practice 09/03/19
--- OUTSIDE RECORDS SUMMARY | 2024-07-11 15:02 | XMS_ITS ---
Care Plan - [facility] Created on: July 11, 2024 SABAS BURGESS : 1975 Sex: Female Author Organization [facility] Address [address] [place] [address] Phone Care Team Providers Care Physical Sciences Instructor Name Role Phone HERI MADDEN PA-C Primary Care Provider [phone]
--- OUTSIDE RECORDS SUMMARY | 2024-07-11 15:02 | XMS_ITS | Clinical Summary ---
Author Organization [facility] Address [address] [place] [address] Phone Care Team Providers Care Bryologist Name Role Phone HERI MADDEN PA-C Primary Care Provider [phone] Reason for Visit and Chief Complaint The Chief Complaint is: 1 MO FU Plan of Treatment No Plan of Treatment Recorded Assessments Includes: Assessments from this encounter Findings - Localized primary osteoarthritis of right knee [M17.11 - Unilateral primary osteoarthritis, right knee] - Last Documented On 09/11/2022 10:30AM ; [facility] - Sacroiliitis [M46.1 - Sacroiliitis, not elsewhere classified] - Last Documented On 09/11/2022 10:30AM ; [facility] - Arthralgia of the right knee/patella/tibia/fibula [M25.561 - Pain in right knee] - Last Documented On 09/11/2022 10:30AM ; [facility] - Arthralgia of the left knee/patella/tibia/fibula [M25.562 - Pain in left knee] - Last Documented On 09/11/2022 10:30AM ; [facility] - 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 [M47.816 - Spondylosis without myelopathy or radiculopathy, lumbar region] - Last Documented On 09/11/2022 10:30AM ; [facility] - Chronic pain [G89.29 - Other chronic pain] - Last Documented On 09/11/2022 10:30AM ; [facility] - Myalgia [M79.10 - Myalgia, unspecified site] - Last Documented On 09/11/2022 10:30AM ; [facility] - Fatigue [R53.83 - Other fatigue] - Last Documented On 09/11/2022 10:30AM ; [facility] Medical Equipment - Implanted Devices Includes: Current Devices No Medical Equipment Recorded Medications Includes: Medications discussed during this encounter and other current Medications Discontinued / Stopped on this date POLLO KERNS on 08/10/2022 Pregabalin 75 MG Oral Capsule Provider: POLLO KERNS Diagnosis: Other chronic pa in Last Documented On 09/11/2022 9:32AM By Jessica GARCIA ; [facility] Pregabalin 150 MG Oral Capsule Provider: POLLO KERNS Diagnosis: Other chronic pa in Last Documented On 3 10:02AM By POLLO KERNS ; [facility] New / Renewed during this visit POLLO KERNS on 09/11/2022 Pregabalin 150 MG Oral Capsule Provider: POLLO KERNS 30 day supply: 60 capsule, 2 refills Diagnosis: Other chronic pain 1 CAPSULE TWO TIMES A DAY [facility] - [address] [place] [address], [id number] - Last Documented On 3 12:27PM By SABAS RODRIGUES ; [facility] Current Medications (continue as prescribed) Pregabalin 150 MG Oral Capsule 05/08/2023 Provider: POLLO KERNS Diagnosis: TAKE 1 CAPSULE BY MOUTH TWO TIMES A DAY Last Documented On 4 3:51PM By POLLO KERNS ; [facility] Celecoxib 200 MG Oral Capsule 03/14/2023 Provider: LILIA KIM Diagnosis: TAKE 1 CAPSULE BY MOUTH ONCE DAILY Last Documented On 3 6:33PM By SABAS RODRIGUES ; [facility] Pregabalin 150 MG Oral Capsule 01/16/2023 Provider: POLLO KERNS Diagnosis: TAKE 1 CAPSULE BY MOUTH TWO TIMES A DAY Last Documented On 3 8:50AM By POLLO RANGEL ANP- ; [facility] Atorvastatin Calcium 40 MG Oral Tablet 01/04/2023 Pr ovider: DENISSE LIRIANO ANP Diagnosis: Last Documented On 01/29/2023 8:35AM By Jessica GARCIA ; [facility] Losartan Potassium 50 MG Oral Tablet 01/04/2023 Prov ider: DENISSE K HERI ANP Diagnosis: Last Documented On 01/29/2023 8:35AM By Jessica GARCIA ; [facility] hydroCHLOROthiazide 25 MG Oral Tablet 01/04/2023 Pro vider: DENISSE LIRIANO ANP Diagnosis: Last Documented On 01/29/2023 8:35AM By Jessica GARCIA ; [facility] Trulicity 1.5 MG/0.5ML Subcu taneous Solution Pen-injector 06/10/2022 Provider: DENISSE LIRIANO ANP Diagnosis: Last Documented On 06/15/2022 1:59PM By Jessica GARCIA ; [facility] OneTouch Verio In Vitro Strip 05/16/2022 Provider: DENISSE LIRIANO ANP Diagnosis: Last Documented On 06/15/2022 1:59PM By Jessica GARCIA ; [facility] Citalopram Hydrobromide 40 MG Oral Tablet 04/13/2022 Provider: HERI MADDEN PA-C Diagnosis: Last Documented On 06/15/2022 2:00PM By Jessica GARCIA ; [facility] Levothyroxine Sodium 112 MCG Oral Tablet 01/16/2022 Provider: HERI MADDEN PA-C Diagnosis: Last Documented On 06/15/2022 2:01PM By Jessica GARCIA ; [facility] Polyethylene Glycol 3350 17 GM/SCOOP Oral Powder 11/03/2021 Provider: SIMON SANCHEZ [employer]SELING SERVICES DIRECTOR Diagnosis: Last Documented On 06/15/2022 2:02PM By Jessica GARCIA ; [facility] Medications Administered Includes: Administered Medications from this encounter No Administered Medications Recorded Vital Signs Includes: Vital Signs from this encounter Vital Name 09/11/2022 10:09A 09/11/2022 09: 22A Blood Pressure Sitting R 120/98 130/100 Pulse Rate-Sitting (bpm) 84 Temp-Temporal 94.8 Height (in) 65 Pain Level 7 Oxygen Saturation (%) 97 Last Documented: On 09/11/2022 10:09A M ; [facility] On 09/11/2022 9:29AM ; [facility] Results Includes: Results discussed during this encounter No Results Recorded For Specified Dates History of Present Illness Includes: History of Present Illness from this encounter HPI - Allergy list reviewed - Problem list reviewed - Medication reconciliation performed - Medication list reviewed - Prescription Drug Monitoring Program website checked. - Last dose of medication? - Pain is continuous - Pain comes/goes - Pain in AM Pain in AM - Pain in PM - Pain aggravated when sleeping - Primary pain location Back - Primary pain duration All the time - Secondary pain duration All the time - Secondary pain location Knees/legs - Pain is burning - Pain is throbbing - Pain is dull, aching - Pain is shooting - Pain is sharp - Pain is like pins/needles - Relieved by medication - Relieved by repositioning - Relieved by leaning forward - Relieved by massage - Relieved by touch/rub - Relieved by distraction - Pain aggravated getting in/out of car - Pain aggravated going down stairs - Pain aggravated going up stairs - Pain aggravated lying down - Pain aggravated sitting - Pain aggravated standing - Pain aggravated by walking - Pain aggrated by coughing/sneezing - Pain aggravated lifting - Pain aggravated by working - Pain aggravated by sex - Pain aggravated bending - Neck pain radiating to both sides Discussion: Patient returns in follow-up after completing physical therapy for chronic low back pain. She noticed mild improvement in pain, but overall activity is still limited due to back pain. It is difficult to stand to cook or clean without increased pain. Today, her biggest complaint is bilateral knee pain. X-rays indicate moderate tricompartmental arthritis. She is likely not a candidate for knee replacement related to BMI. She has lost weight over the last year since starting to the [facility]. Blood sugars are better controlled at this point too. We discussed steroid knee injections for symptom control as well as consideration of lumbar medial branch blocks X2 with progression to RF ablation based on response. Knee pain is most concerning, but she would like to speak with her before proceeding with knee injections. She will notify the office if she wishes to proceed. At this time, she will continue home exercises. She does feel pregabalin has considerably helped with widespread myalgia. Labs indicated a decreased vitamin D level. PCP has recommended she start a supplement [id number]. She has not done this yet. Otherwise, labs are unremarkable for any type of autoimmune disorder. Past note: Patient returns in follow up for low back pain. She has done 6 sessions of therapy and home exercises over the last 6-7 weeks. While there is mild improvement, she is still having quite a bit of back pain. She is still unable to stand more than 10 minutes without needing to rest. She cannot stand to cook or clean. There are complaints of widespread myalgia and joint pain. There is some chronic fatigue. There is intermittent crawling sensation on the arms and legs with no dermatomal pattern. This comes and goes. She has not been diagnosed with any centralized pain syndrome, but we run some labs today. Celebrex may be helping some. She would like to finish the last 6 sessions of therapy before considering injections. We will try pregabalin for other generalized pain complaints. Gabapentin used in past ineffective. She uses thc gummies with some benefit. Past note: Patient is referred for evaluation and treatment. She describes chronic low back pain for 20+ year, progressively worsening the last 3 years. She has been more sedentary since covid pandemic started and admits this has worsened her pain. She has lost weight, but pain is still severe when standing for 10 minutes. Knee pain is also worsening. Standing to cook or shopping is difficult. Meloxicam helps minimally. Tylenol doesn't help. Gabapentin and tramadol were ineffective. She does utilize her 's marijuana with benefit. Therapy was done years ago, has not continued exercises. Imaging is not recent. She is hypersensitive on exam to very slight touch to the lumbar region. I question some central pain syndrome. We will get updated imaging and start therapy. She will continue to work on weight loss and start celebrex. Imaging: All relevant imaging available was personally reviewed with the patient today with the following tests and results noted: X-ray bilateral knees 06/20/22: moderate medial predominant tricompartmental bilateral knee osteoarthritis. X-ray L spine 06/20/22: moderate L2-4 degenerative disc disease. Mild levocurvature of the lumbar spine. Mild inferior lumbar facet osteoarthritis. Inferior thoracic DDD. X-ray SI joints 06/20/22: no osseous erosion or sclerosis. Osteoarthritic changes noted in the hip joints.] Social History Description Last Updated Alcohol 06/15/2022 Last Documented On 3 9:21AM ; [facility] Amount of alcohol per day: Occasionally 06/15/2022 Last Documented On 3 9:21AM ; [facility] Difficulty walking 06/15/2022 Last Documented On 3 9:21AM ; [facility] Drug use 06/15/2022 Last Documented On 3 9:21AM ; [facility] Smoking packs of cigarettes per day Occa sional cigar 06/15/2022 Last Documented On 3 9:21AM ; [facility] Type: Pot occasionally 06/15/2022 Last Documented On 3 9:21AM ; [facility] Smoking Status Unknown Procedures and Surgical History Includes: Procedures from this encounter Procedures Code Diagnosis Performing Provider Service L ocation Service Date walker Last Documented On 3 9:21AM ; [facility] a standard wheelchair Last Documented On 3 9:21AM ; [facility] use of tobacco assessment performed 1000F Last Documented On 3 9:21AM ; [facility] review of medications documented 1160F Last Documented On 3 9:21AM ; [facility] screening for adult depression: impressi on and score seven Last Documented On 3 9:21AM ; [facility] standardized depression screening: posit mindy for symptoms Last Documented On 3 9:21AM ; [facility] Clinical summary provided to patient ~ Patient understands and agrees with treatment plan. Questions answered Last Documented On 3 9:21AM ; [facility] SOAPP-R: total score 19 Last Documented On 3 9:21AM ; [facility] Surgical History Last Updated No Pacemaker 09/11/2022 Last Documented On 3 10:30AM ; [facility] Surgical / procedural history None 09/11 Last Documented On 3 10:30AM ; [facility] Medical History Includes: Medical History addressed during this encounter Description Last Updated personal carer 09/11/2022 Last Documented On 3 10:30AM ; [facility] CT/MRI Been a while 09/11/2022 Last Documented On 3 10:30AM ; [facility] Currently wearing eyeglasses 09/11/2022 Last Documented On 3 10:30AM ; [facility] Moderate to severe pain 09/11/2022 Last Documented On 3 10:30AM ; [facility] Myelogram Dont know what this is 023 Last Documented On 3 10:30AM ; [facility] NCV/EMG Dont know what this is 3 Last Documented On 3 10:30AM ; [facility] No Pain Pump 09/11/2022 Last Documented On 3 10:30AM ; [facility] No Spinal cord stimulator 09/11/2022 Last Documented On 3 10:30AM ; [facility] Other method: 09/11/2022 Last Documented On 3 10:30AM ; [facility] Physical therapy 09/11/2022 Last Documented On 3 10:30AM ; [facility] Please list all illnesses/co nditions you have been diagnosed with: Arthritis, scoliosis, degenerative disc and joint disease, ibs, depression, diabetes, morbid obesity?. not sure at the moment 09/11/2022 Last Documented On 3 10:30AM ; [facility] Please list all surgeries: C section 1993/2011d&c 2009vaginal 1999tonsils out, tubes in ears,gall bladder 2005endometrial ablation 2017 maybe 09/11/2022 Last Documented On 3 10:30AM ; [facility] Ultrasound Been a while 09/11/2022 Last Documented On 3 10:30AM ; [facility] Uses a cane for support 09/11/2022 Last Documented On 3 10:30AM ; [facility] X-rays Been a while 09/11/2022 Last Documented On 3 10:30AM ; [facility] Family History Includes: Family History addressed during this encounter Description Last Updated Family history of stroke/paralysis 09/11 Last Documented On 3 10:30AM ; [facility] Maternal history of stroke/paralysis Last Documented On 3 10:30AM ; [facility] Reported family history of seizures 08/18 Last Documented On 3 10:30AM ; [facility] Review of Systems Includes: Review of Systems from this encounter Systemic: No systemic symptoms other than noted. Fatigue and recent weight change. Head: No head symptoms other then noted. Neck: No neck pain. Otolaryngeal: No otolaryngeal symptoms other than noted. Tinnitus. Cardiovascular: No chest pain or discomfort. Cold hands or feet. Pulmonary: No dyspnea. Gastrointestinal: No nausea. Nausea and obstipation with pain. No constipation. Constipation. Genitourinary: No urinary loss of control. Endocrine: No endocrine symptoms other than noted. Weakness and sexual complaints. Hematologic: No easy bleeding and no tendency for easy bruising. Musculoskeletal: No musculoskeletal symptoms other than noted. Back pain, ankle joint swelling, muscle aches, soft tissue swelling of the foot, pain localized to one or more joints, and joint stiffness localized to one or more joints. Neurological: Dizziness. No fainting passing out with needles or medical procedures, no motor disturbances, and no sensory disturbances. Numbness. Psychological: No psychological symptoms other than noted. Depression. Skin: No skin symptoms other than noted. Mental Status Includes: Mental Status from this encounter No Mental Status Recorded Functional Status Includes: Functional Status from this encounter No Functional Status Recorded Physical Exam Includes: Physical Exam from this encounter Allergies Includes: Active Allergies No Known Allergies Encounters Encounter Provider Location Date Check-In Time Check-Out Time Diagnosis PAIN MANAGEMENT FOLLOW UP POLLO RANGEL ANP[facility] 09/12/19 23 9:21AM 10:10AM Sacroiliitis,Ost eoarthritis Localized Primary Knee Right,Fatigue,Ch ronic Pain,Arthralgia - Knee / Patella / Tibia / Fibula Right,Arthralgia - Knee / Patella / Tibia / Fibula Left,Spondylosis Without Myelopathy Or Radiculopathy Lumbar Region,Myalgia , Unspecified Cite (M79.10) Insurance Includes: Active Insurance Policies Plan Name Member ID Group # Subscriber Relationship Effect mindy Dates - [facility] [id number] SABAS BURGESS Self Clinical Notes Includes: Clinical Notes from this encounter * Progress note Date Encounter Last Documented by 09/11/2022 PAIN MANAGEMENT FOLLOW UP Last d ocumented on 09/11/2022; 10:30 AM, POLLO RANGEL ANP-; [facility] Chief Complaint The Chief Complaint is: 1 MO FU. History of Present Illness - Allergy list reviewed - Problem list reviewed - Medication reconciliation performed - Medication list reviewed - Prescription Drug Monitoring Program website checked. - Last dose of medication? - Pain is continuous - Pain comes/goes - Pain in AM Pain in AM - Pain in PM - Pain aggravated when sleeping - Primary pain location Back - Primary pain duration All the time - Secondary pain duration All the time - Secondary pain location Knees/legs - Pain is burning - Pain is throbbing - Pain is dull, aching - Pain is shooting - Pain is sharp - Pain is like pins/needles - Relieved by medication - Relieved by repositioning - Relieved by leaning forward - Relieved by massage - Relieved by touch/rub - Relieved by distraction - Pain aggravated getting in/out of car - Pain aggravated going down stairs - Pain aggravated going up stairs - Pain aggravated lying down - Pain aggravated sitting - Pain aggravated standing - Pain aggravated by walking - Pain aggrated by coughing/sneezing - Pain aggravated lifting - Pain aggravated by working - Pain aggravated by sex - Pain aggravated bending - Neck pain radiating to both sides Discussion: Patient returns in follow-up after completing physical therapy for chronic low back pain. She noticed mild improvement in pain, but overall activity is still limited due to back pain. It is difficult to stand to cook or clean without increased pain. Today, her biggest complaint is bilateral knee pain. X-rays indicate moderate tricompartmental arthritis. She is likely not a candidate for knee replacement related to BMI. She has lost weight over the last year since starting to the [facility]. Blood sugars are better controlled at this point too. We discussed steroid knee injections for symptom control as well as consideration of lumbar medial branch blocks X2 with progression to RF ablation based on response. Knee pain is most concerning, but she would like to speak with her before proceeding with knee injections. She will notify the office if she wishes to proceed. At this time, she will continue home exercises. She does feel pregabalin has considerably helped with widespread myalgia. Labs indicated a decreased vitamin D level. PCP has recommended she start a supplement [id number]. She has not done this yet. Otherwise, labs are unremarkable for any type of autoimmune disorder. Past note: Patient returns in follow up for low back pain. She has done 6 sessions of therapy and home exercises over the last 6-7 weeks. While there is mild improvement, she is still having quite a bit of back pain. She is still unable to stand more than 10 minutes without needing to rest. She cannot stand to cook or clean. There are complaints of widespread myalgia and joint pain. There is some chronic fatigue. There is intermittent crawling sensation on the arms and legs with no dermatomal pattern. This comes and goes. She has not been diagnosed with any centralized pain syndrome, but we run some labs today. Celebrex may be helping some. She would like to finish the last 6 sessions of therapy before considering injections. We will try pregabalin for other generalized pain complaints. Gabapentin used in past ineffective. She uses thc gummies with some benefit. Past note: Patient is referred for evaluation and treatment. She describes chronic low back pain for 20+ year, progressively worsening the last 3 years. She has been more sedentary since [employer] pandemic started and admits this has worsened her pain. She has lost weight, but pain is still severe when standing for 10 minutes. Knee pain is also worsening. Standing to cook or shopping is difficult. Meloxicam helps minimally. Tylenol doesn't help. Gabapentin and tramadol were ineffective. She does utilize her 's marijuana with benefit. Therapy was done years ago, has not continued exercises. Imaging is not recent. She is hypersensitive on exam to very slight touch to the lumbar region. I question some central pain syndrome. We will get updated imaging and start therapy. She will continue to work on weight loss and start celebrex. Imaging: All relevant imaging available was personally reviewed with the patient today with the following tests and results noted: X-ray bilateral knees 06/20/22: moderate medial predominant tricompartmental bilateral knee osteoarthritis. X-ray L spine 06/20/22: moderate L2-4 degenerative disc disease. Mild levocurvature of the lumbar spine. Mild inferior lumbar facet osteoarthritis. Inferior thoracic DDD. X-ray SI joints 06/20/22: no osseous erosion or sclerosis. Osteoarthritic changes noted in the hip joints.] Test Conclusions PHQ-9 Score: 7 Date:06/15/22 BPI Score: Date: MiDAS Score: Date: SOAPP-R Score: 19 Date:06/15/22 Past Medical/Surgical History Reported: personal carer, Physical therapy, Other method:, Please list all illnesses/conditions you have been diagnosed with: Arthritis, scoliosis, degenerative disc and joint disease, ibs, depression, diabetes, morbid obesity?. not sure at the moment, and Please list all surgeries: Csection d&c 2009vaginal 1998tonsils out, tubes in ears,gall bladder 2005endometrial ablation 2017 maybe. Medical: Currently wearing eyeglasses, orthopedic history Left Knee Score mild pain Moderate to severe pain, and Uses a cane for support. No Spinal cord stimulator and no Pain Pump. Surgical / Procedural: Surgical / procedural history None. No Pacemaker. Tests: X-rays Been a while, CT/MRI Been a while, Myelogram Dont know what this is, Ultrasound Been a while, and NCV/EMG Dont know what this is. Current Medication - Atenolol-Chlorthalidone 100-25 MG Oral Tablet One tablet daily 90 days, 0 refills - Celecoxib 200 MG Oral Capsule 1 capsule daily, 30 days, 1 refills - Citalopram Hydrobromide 40 MG Oral Tablet One tablet daily 90 days, 0 refills - Levothyroxine Sodium 112 MCG Oral Tablet One tablet daily 90 days, 0 refills - OneTouch Verio In Vitro Strip as directed 25 days, 0 refills - OneTouch Verio In Vitro Strip as directed 25 days, 0 refills - Polyethylene Glycol 3350 17 GM/SCOOP Oral Powder as directed 30 days, 0 refills - Trulicity 1.5 MG/0.5ML Subcutaneous Solution Pen-injector as directed 28 days, 0 refills Social History Difficulty walking. Behavioral: Amount of alcohol per day: Occasionally. Tobacco use: Smoking packs of cigarettes per day Occasional cigar. Alcohol: Alcohol. Drug Use: Drug use Type: Pot occasionally. Allergies - No Known Allergies Family History Stroke/paralysis Reported family history of seizures Maternal: Stroke/paralysis Review Of Systems Systemic: No systemic symptoms other than noted. Fatigue and recent weight change. Head: No head symptoms other then noted. Neck: No neck pain. Otolaryngeal: No otolaryngeal symptoms other than noted. Tinnitus. Cardiovascular: No chest pain or discomfort. Cold hands or feet. Pulmonary: No dyspnea. Gastrointestinal: No nausea. Nausea and obstipation with pain. No constipation. Constipation. Genitourinary: No urinary loss of control. Endocrine: No endocrine symptoms other than noted. Weakness and sexual complaints. Hematologic: No easy bleeding and no tendency for easy bruising. Musculoskeletal: No musculoskeletal symptoms other than noted. Back pain, ankle joint swelling, muscle aches, soft tissue swelling of the foot, pain localized to one or more joints, and joint stiffness localized to one or more joints. Neurological: Dizziness. No fainting passing out with needles or medical procedures, no motor disturbances, and no sensory disturbances. Numbness. Psychological: No psychological symptoms other than noted. Depression. Skin: No skin symptoms other than noted. Physical Findings - Vitals taken 09/11/2022 09:22 am BP-Sitting R 130/100 mmHg Pulse Rate-Sitting 84 bpm Temp-Temporal 94.8 F Height 65 in Pain Level 7 Pain Level Note LOW BACK AND KNEES Oxygen Saturation 97 % - Vitals taken 09/11/2022 10:09 am BP-Sitting R 120/98 mmHg Psychiatric: Psychiatric: Value PHQ9 score: 7 Constitutional: Well developed, morbidly obese. Well nourished. In no acute distress. HEENT: NC/AT. Anicteric. Clear Conjunctiva. PERRLA. CVS: Peripheral pulses palpable in all extremities. Pulmonary: . Normal chest expansion bilaterally. Spine/MSK: Hypersensitive to light touch lumbar spine and SI joints. Positive facet loading. Lumbar exam limited due to pain. Tenderness bilateral knees. Gait: Not antalgic. No steppage gait. No Trendelenburg gait. No circumspected gait pattern. Heel walk normal. Toe walk normal. Tandem gait normal. Neuro: Awake. Alert. Oriented x3. DTR's intact in all extremities. DTR's equal in all extremities. No sensory deficit. No motor deficit. Psych: No apparent distress. Mood normal. Affect normal. No pain behaviors. Skin: No rash. Normal pigmentation. Normal temperature Tests Educational Testing: Questionnaires PHQ-9: Value SOAPP-R: total score 19 Assessment - Localized primary osteoarthritis of right knee [M17.11 - Unilateral primary osteoarthritis, right knee] - Sacroiliitis [M46.1 - Sacroiliitis, not elsewhere classified] - Arthralgia of the right knee/patella/tibia/fibula [M25.561 - Pain in right knee] - Arthralgia of the left knee/patella/tibia/fibula [M25.562 - Pain in left knee] - 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 [M47.816 - Spondylosis without myelopathy or radiculopathy, lumbar region] - Chronic pain [G89.29 - Other chronic pain] - Myalgia [M79.10 - Myalgia, unspecified site] - Fatigue [R53.83 - Other fatigue] Therapy - Clinical summary provided to patient Patient understands and agrees with treatment plan. Questions answered. - Walker. - A standard wheelchair. Discussed Patient will continue home exercises. Discussed bilateral knee steroid joint injections as well as lumbar medial branch blocks. Patient would like to take time to consider these options and will notify the office if she wishes to proceed. Continue pregabalin 150 mg BID. Follow-up 2 months Plan StartCited - Other chronic pain Pregabalin 150 MG capsule 1 CAPSULE TWO TIMES A DAY, 30 days, 2 refills EndCited Practice Management Use of tobacco assessment performed Review of medications documented; Standardized depression screening: positive for symptoms and for adult impression and score seven. A total of [31 ] minutes were spent on this patient's evaluation, as above, with greater than 50% of this time spent in direct [id number] counseling and coordination of care. Results of this interaction were communicated directly to the patient's referring and/or primary care provider. Multiple documents have been reviewed today in conjunction with her evaluation including online prescription monitoring database, laboratory data, imaging studies, previous specialist provider notes and primary care provider notes. For all patients on acute or chronic opioids, ongoing need for opioid analgesia is assessed at each visit with consideration of discontinuation or wean to lowest effective dose when possible and appropriate. Contents of this document have been edited for correctness, but may be subject to typographical or digestion operator errors. Verify all diagnoses, medications, dosages, and patient instructions with patient and/or the originator of this document. Care Team - HERI MADDEN PA-C Health Reminders - Assess Tobacco Use satisfied 09/11/2022. - Depression Screening satisfied 09/11/2022.
--- OUTSIDE RECORDS SUMMARY | 2024-07-11 15:02 | XMS_ITS | Clinical Summary ---
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 Name Role Phone HERI MADDEN PA-C Primary Care Provider [phone] Reason for Visit and Chief Complaint The Chief Complaint is: FU BILATERAL KNEE STEROID INJECTION DONE UNDER ULTRASOUND DONE 10/18/22, 60% RELIEF ONGOING Plan of Treatment No Plan of Treatment Recorded Assessments Includes: Assessments from this encounter Findings - Localized primary osteoarthritis of right knee [M17.11 - Unilateral primary osteoarthritis, right knee] - Last Documented On 11/08/2022 9:53AM ; [facility] - Sacroiliitis [M46.1 - Sacroiliitis, not elsewhere classified] - Last Documented On 11/08/2022 9:53AM ; [facility] - Arthralgia of the right knee/patella/tibia/fibula [M25.561 - Pain in right knee] - Last Documented On 11/08/2022 9:53AM ; [facility] - Arthralgia of the left knee/patella/tibia/fibula [M25.562 - Pain in left knee] - Last Documented On 11/08/2022 9:53AM ; [facility] - 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 [M47.816 - Spondylosis without myelopathy or radiculopathy, lumbar region] - Last Documented On 11/08/2022 9:53AM ; [facility] - Chronic pain [G89.29 - Other chronic pain] - Last Documented On 11/08/2022 9:53AM ; [facility] - Myalgia [M79.10 - Myalgia, unspecified site] - Last Documented On 11/08/2022 9:53AM ; [facility] Medical Equipment - Implanted Devices Includes: Current Devices No Medical Equipment Recorded Medications Includes: Medications discussed during this encounter and other current Medications Discontinued / Stopped on this date POLLO CARPIO-BC on 08/10/2022 Celecoxib 200 MG Oral Capsule Provider: POLLO SimpsonBC Diagnosis: Dorsalgia, unspe cified Last Documented On 11/08/2022 9:24AM By Jessica GARCIA ; [facility] Current Medications (continue as prescribed) Pregabalin 150 MG Oral Capsule 05/08/2023 Provider: POLLO DANGBC Diagnosis: TAKE 1 CAPSULE BY MOUTH TWO TIMES A DAY Last Documented On 4 3:51PM By POLLO CARPIO-BC ; [facility] Celecoxib 200 MG Oral Capsule 03/14/2023 Provider: SABAS LOPEZA, BELT WEAVER-BC Diagnosis: TAKE 1 CAPSULE BY MOUTH ONCE DAILY Last Documented On 3 6:33PM By SABAS GRIFFIN BELT WEAVER-BC ; [facility] Pregabalin 150 MG Oral Capsule 01/16/2023 Provider: POLLO DANGBC Diagnosis: TAKE 1 CAPSULE BY MOUTH TWO TIMES A DAY Last Documented On 8:50AM By POLLO DANGBC ; [facility] Atorvastatin Calcium 40 MG Oral Tablet 01/04/2023 Pr ovider: DENISSE LIRIANO ANP Diagnosis: Last Documented On 01/29/2023 8:35AM By Jessica GARCIA ; [facility] Losartan Potassium 50 MG Oral Tablet 01/04/2023 Prov ider: DENISSE LIRIANO ANP Diagnosis: Last Documented On 01/29/2023 8:35AM By Jessica GARCIA ; [facility] hydroCHLOROthiazide 25 MG Oral Tablet 01/04/2023 Pro vider: DENISSE LIRIANO ANP Diagnosis: Last Documented On 01/29/2023 8:35AM By Jessica GARCIA ; [facility] Trulicity 1.5 MG/0.5ML Subcu taneous Solution Pen-injector 06/10/2022 Provider: DENISSE CARPIO Diagnosis: Last Documented On 06/15/2022 1:59PM By Jessica GARCIA ; [facility] Davonte Thompson In Vitro Strip 05/16/2022 Provider: DENISSE LIRIANO ANP Diagnosis: Last Documented On 06/15/2022 1:59PM By Jessica GARCIA ; [facility] Citalopram Hydrobromide 40 MG Oral Tablet 04/13/2022 Provider: HERI MADDEN PA-C Diagnosis: Last Documented On 06/15/2022 2:00PM By Jessica GARCIA ; [facility] Levothyroxine Sodium 112 MCG Oral Tablet 01/16/2022 Provider: HERI MADDEN PA-C Diagnosis: Last Documented On 06/15/2022 2:01PM By Jessica GARCIA ; [facility] Polyethylene Glycol 3350 17 GM/SCOOP Oral Powder 11/03/2021 Provider: SIMON SANCHEZ NP Diagnosis: Last Documented On 06/15/2022 2:02PM By Jessica GARCIA ; [facility] Medications Administered Includes: Administered Medications from this encounter No Administered Medications Recorded Vital Signs Includes: Vital Signs from this encounter Vital Name 11/08/2022 09:17A Blood Pressure Sitting L 110/80 Pulse Rate-Sitting (bpm) 88 Temp-Temporal 96.7 Height (in) 65 Weight (lb) 337 Body Mass Index 56.1 Body Surface Area 2.5 Pain Level 5 Oxygen Saturation (%) 95 Last Documented: On 11/08/2022 9:23AM ; [facility] Results Includes: Results discussed during this encounter [...] pain radiating to both sides Discussion: Patient presents in follow up to bilateral knee steroid injections done 3 weeks ago. She reports at least 60% Pain relief. She is able to rise from a chair and ambulate with less pain. She is overall very pleased with her relief. She continues to experience low back pain, axial in nature. We again discussed medial branch blocks. She would like to hold off on this procedure for now. She utilizes marijuana Gummies for residual knee pain as well as low back pain related to osteoarthritis. She would like a medical marijuana card if possible. We started this paperwork today. She continues home exercises to-3 times per week. Past note: Patient returns in follow-up after completing physical [...] the last year since starting to the [facility]. Blood sugars are better controlled at this [...] PCP has recommended she start a supplement [id number]. She has not done this yet. Otherwise, [...] work on weight loss and start celebrex. Discussion: Patient presents in follow up to bilateral knee steroid injections done 3 weeks ago. She reports at least 60% pain relief ongoing. She is able to rise from a chair and walk with less difficulty. She is overall very pleased with her relief. Low back pain continues. We again discussed medial branch blocks, but she would like to hold off at this time. She continues to utilize Gummies for both residual knee pain as well as lumbar osteoarthritis. She is interested in a medical marijuana card if possible. We will start this paperwork. Patient continues home exercises at least 2-3 times per week. We will follow-up with her in 3 months unless PCP assumes prescription of Celebrex and pregabalin. Past note: Patient returns in follow-up after completing physical [...] the last year since starting to the [facility]. Blood sugars are better controlled at this [...] PCP has recommended she start a supplement [id number]. She has not done this yet. Otherwise, [...] Updated Alcohol 06/15/2022 Last Documented On 3 9:16AM ; [facility] Amount of alcohol per day: Occasionally 06/15/2022 Last Documented On 3 9:16AM ; [facility] Difficulty walking 06/15/2022 Last Documented On 3 9:16AM ; [facility] Drug use 06/15/2022 Last Documented On 3 9:16AM ; [facility] Smoking packs of cigarettes per day Occa sional cigar 06/15/2022 Last Documented On 3 9:16AM ; [facility] Type: Pot occasionally 06/15/2022 Last Documented On 3 9:16AM ; [facility] Smoking Status Unknown Procedures and Surgical History Includes: Procedures from this encounter Procedures Code Diagnosis Performing Provider Service L ocation Service Date walker Last Documented On 3 9:17AM ; [facility] a standard wheelchair Last Documented On 3 9:17AM ; [facility] use of tobacco assessment performed 1000F Last Documented On 3 9:17AM ; [facility] review of medications documented 1160F Last Documented On 3 9:17AM ; [facility] screening for adult depression: impressi on and score seven Last Documented On 3 9:17AM ; [facility] standardized depression screening: posit mindy for symptoms Last Documented On 3 9:17AM ; [facility] Clinical summary provided to patient ~ Patient understands and agrees with treatment plan. 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 Last Documented On 3 9:53AM ; [facility] CT/MRI Been a while 11/08/2022 Last Documented On 3 9:53AM ; [facility] Currently wearing eyeglasses 11/08/2022 Last Documented On 3 9:53AM ; [facility] Moderate to severe pain 11/08/2022 Last Documented On 3 9:53AM ; [facility] Myelogram Dont know what this is 023 Last Documented On 3 9:53AM ; [facility] NCV/EMG Dont know what this is 3 Last Documented On 3 9:53AM ; [facility] No Pain Pump 11/08/2022 Last Documented On 3 9:53AM ; [facility] No Spinal cord stimulator 11/08/2022 Last Documented On 3 9:53AM ; [facility] Other method: 11/08/2022 Last Documented On 3 9:53AM ; [facility] Physical therapy 11/08/2022 Last Documented On 3 9:53AM ; [facility] Please list all illnesses/co nditions you have been diagnosed with: Arthritis, scoliosis, degenerative disc and joint disease, ibs, depression, diabetes, morbid obesity?. not sure at the moment 11/08/2022 Last Documented On 3 9:53AM ; [facility] Please list all surgeries: C section d&c 2009vaginal 1999tonsils out, tubes in ears,gall bladder 2005endometrial ablation 2017 maybe 11/08/2022 Last Documented On 3 9:53AM ; [facility] Ultrasound Been a while 11/08/2022 Last Documented On 3 9:53AM ; [facility] Uses a cane for support 11/08/2022 Last Documented On 3 9:53AM ; [facility] X-rays Been a while 11/08/2022 Last Documented On 3 9:53AM ; [facility] Family History Includes: Family History addressed during this encounter Description Last Updated Family history of stroke/paralysis 11/08 Last Documented On 3 9:53AM ; [facility] Maternal history of stroke/paralysis Last Documented On 3 9:53AM ; [facility] Reported family history of seizures 10/18 Last Documented On 3 9:53AM ; [facility] Review of Systems Includes: Review of Systems from this encounter Systemic: No systemic symptoms other than noted. Fatigue and recent weight change. Head: No head symptoms other then noted. Neck: No neck pain. Cardiovascular: No chest pain or discomfort. Cold hands or feet. Pulmonary: No dyspnea. Gastrointestinal: No nausea and no constipation. Constipation. Genitourinary: No urinary loss of control. Endocrine: Weakness. Hematologic: No easy bleeding and no tendency for easy bruising. Musculoskeletal: Back pain, ankle joint swelling, muscle aches, [...] Diagnosis PAIN MANAGEMENT FOLLOW UP POLLO RANGEL [facility] 11/09/19 9:15AM 9:48AM Sacroiliitis,Ost eoarthritis Localized Primary Knee Right,Chronic Pain,Arthralgia - Knee / Patella / Tibia / Fibula Right,Arthralgia - Knee / Patella / Tibia / Fibula Left,Spondylosis Without Myelopathy Or Radiculopathy Lumbar Region,Myalgia , Unspecified Cite (M79.10) Insurance Includes: Active Insurance Policies Plan Name Member ID Group # Subscriber Relationship Effect mindy Dates 1 - [facility] [id number] SABAS BURGESS Self Clinical Notes Includes: Clinical Notes from this encounter * Progress note Date Encounter Last Documented by 11/08/2022 PAIN MANAGEMENT FOLLOW UP Last d ocumented on 11/08/2022; 9:53 AM, POLLO CARPIO-; [facility] Chief Complaint The Chief Complaint is: FU BILATERAL KNEE STEROID INJECTION DONE UNDER ULTRASOUND DONE 10/18/22, 60% RELIEF ONGOING. History of Present Illness - Allergy list [...] pain radiating to both sides Discussion: Patient presents in follow up to bilateral knee steroid injections done 3 weeks ago. She reports at least 60% Pain relief. She is able to rise from a chair and ambulate with less pain. She is overall very pleased with her relief. She continues to experience low back pain, axial in nature. We again discussed medial branch blocks. She would like to hold off on this procedure for now. She utilizes marijuana Gummies for residual knee pain as well as low back pain related to osteoarthritis. She would like a medical marijuana card if possible. We started this paperwork today. She continues home exercises to-3 times per week. Past note: Patient returns in follow-up after completing physical [...] the last year since starting to the [facility]. Blood sugars are better controlled at this [...] PCP has recommended she start a supplement [id number]. She has not done this yet. Otherwise, [...] work on weight loss and start celebrex. Discussion: Patient presents in follow up to bilateral knee steroid injections done 3 weeks ago. She reports at least 60% pain relief ongoing. She is able to rise from a chair and walk with less difficulty. She is overall very pleased with her relief. Low back pain continues. We again discussed medial branch blocks, but she would like to hold off at this time. She continues to utilize Gummies for both residual knee pain as well as lumbar osteoarthritis. She is interested in a medical marijuana card if possible. We will start this paperwork. Patient continues home exercises at least 2-3 times per week. We will follow-up with her in 3 months unless PCP assumes prescription of Celebrex and pregabalin. Past note: Patient returns in follow-up after completing physical [...] the last year since starting to the [facility]. Blood sugars are better controlled at this [...] PCP has recommended she start a supplement [id number]. She has not done this yet. 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 Neck: No neck pain. Cardiovascular: No chest pain or discomfort. Cold hands or feet. Pulmonary: No dyspnea. Gastrointestinal: No nausea and no constipation. Constipation. Genitourinary: No urinary loss of control. Endocrine: Weakness. Hematologic: No easy bleeding and no tendency for easy bruising. Musculoskeletal: Back pain, ankle joint swelling, muscle aches, [...] than noted. Physical Findings - Vitals taken 11/08/2022 09:17 am BP-Sitting L 110/80 mmHg Pulse Rate-Sitting 88 bpm Temp-Temporal 96.7 F Height 65 in Weight 337 lbs Body Mass Index 56.1 kg/m2 Body Surface Area 2.5 m2 Pain Level 5 Pain Level Note LOW BACK Oxygen Saturation 95 % Psychiatric: Psychiatric: Value PHQ9 score: 7 Constitutional: Well developed, morbidly obese. Well nourished. In no acute distress. HEENT: NC/AT. Anicteric. Clear Conjunctiva. PERRLA. CVS: Peripheral pulses palpable in all extremities. Pulmonary: . Normal chest expansion bilaterally. Spine/MSK: Hypersensitive to light touch lumbar spine and SI joints. Positive facet loading. Lumbar exam limited due to pain. Gait: Not antalgic. No steppage gait. No [...] - Myalgia [M79.10 - Myalgia, unspecified site] Therapy - Clinical summary provided to patient Patient understands and agrees with treatment plan. Questions answered. - Walker. - A standard wheelchair. Discussed Patient will continue home exercises. Continue pregabalin 150 mg BID. Follow-up 3 month unless pcp assumes medication management Discussed use of medical marijuana as appropriate for chronic pain. Patient has a debilitating medical condition that our office is managing. We have been seeing this patient for about 5 months. We discussed risk and benefit along with possible side effects of medical marijuana. It is important that patient reports use to all providers in their care team. Although little is known about the safety of individual compounds serious side effects are very rare. There is a low potential for dependence with cannabis. Common side effects may include, anxiety, reddened eyes, dry mouth, slowed pupillary response, cough for inhaled substances and related bronchitis or pulmonary complications, and dysphoria. THC and CBD may potentially decrease or increase concentrations of certain medications, specifically Warfarin. If you are taking Warfarin, very close monitoring of INR is important. Cannabis should not be used with alcohol or benzodiazepines. Cannabis can possibly cause changes in blood pressure including low blood pressure and syncope. Report any of these symptoms to your doctor right away. You should not drive while using cannabis. Cannabis use is not recommended for or breast feeding females. Cannabis is not recommended for adolescents. Cannabis is not recommended for patients at risk for or with a history of psychosis. Although cannabis is generally well tolerated and serious adverse effects are rare, drug interactions can be a concern and needs to be monitored by a medical provider. Practice Management Use of tobacco assessment performed Review of medications documented; Standardized depression screening: positive for symptoms and for adult impression and score seven. A total of [28 ] minutes were spent on this patient's evaluation, as above, with greater than 50% of this time spent in direct [id number] counseling and coordination of care. Results of [...] but may be subject to typographical or senior accountant cpa errors. Verify all diagnoses, medications, dosages, and patient instructions with patient and/or the originator of this document. Care Team - HERI MADDEN PA-C Health Reminders - Assess BMI satisfied 11/08/2022. - Assess Tobacco Use satisfied 11/08/2022. - Depression Screening satisfied 11/08/2022.
--- OUTSIDE RECORDS SUMMARY | 2024-07-11 15:02 | XMS_ITS ---
Author Organization [facility] Address [address] [place] [address] Phone Care Team Providers Care Awning Installer Name Role Phone HERI MADDEN PA-C Primary Care Provider [phone] Plan of Treatment No Plan of Treatment Recorded Assessments Includes: Assessments for all patient encounters Findings Encounter Date Arthralgia of the left knee/patella/tibia/fibula PAIN MANAGEMENT FOLLOW UP with POLLO L JUAN CARLOS ANP-BC 01/29/2023 Last Documented On 3 9:14AM ; [facility] Arthralgia of the right knee/patella/tibia/fibula PAIN MANAGEMENT FOLLOW UP with POLLO L JUAN CARLOS ANP-BC 01/29/2023 Last Documented On 3 9:14AM ; [facility] Chronic pain PAIN MANAGEMENT FOLLOW UP with T MIRIAM L JUAN CARLOS ANP-BC 01/29/2023 Last Documented On 3 9:14AM ; [facility] Localized primary osteoarthr itis of right knee PAIN MANAGEMENT FOLLOW UP with POLLO L JUAN CARLOS ANP-BC 01/29/2023 Last Documented On 3 9:14AM ; [facility] Lumbar spondylosis without m yelopathy or radiculopathy PAIN MANAGEMENT FOLLOW UP with POLLO L JUAN CARLOS ANP-BC 01/29/2023 Last Documented On 3 9:14AM ; [facility] Myalgia PAIN MANAGEMENT FOLLOW UP with T MIRIAM L JUAN CARLOS ANP-BC 01/29/2023 Last Documented On 3 9:14AM ; [facility] Sacroiliitis PAIN MANAGEMENT FOLLOW UP with T MIRIAM L JUAN CARLOS ANP-BC 01/29/2023 Last Documented On 3 9:14AM ; [facility] Arthralgia of the left knee/patella/tibia/fibula PAIN MANAGEMENT FOLLOW UP with POLLO L JUAN CARLOS ANP-BC 11/08/2022 Last Documented On 3 9:53AM ; [facility] Arthralgia of the right knee/patella/tibia/fibula PAIN MANAGEMENT FOLLOW UP with POLLO L JUAN CARLOS ANP-BC 11/08/2022 Last Documented On 3 9:53AM ; [facility] Chronic pain PAIN MANAGEMENT FOLLOW UP with T MIRIAM L JUAN CARLOS ANP-BC 11/08/2022 Last Documented On 3 9:53AM ; [facility] Localized primary osteoarthr itis of right knee PAIN MANAGEMENT FOLLOW UP with POLLO L JUAN CARLOS ANP-BC 11/08/2022 Last Documented On 3 9:53AM ; [facility] Lumbar spondylosis without m yelopathy or radiculopathy PAIN MANAGEMENT FOLLOW UP with POLLO L JUAN CARLOS ANP-BC 11/08/2022 Last Documented On 3 9:53AM ; [facility] Myalgia PAIN MANAGEMENT FOLLOW UP with T MIRIAM L JUAN CARLOS ANP-BC 11/08/2022 Last Documented On 3 9:53AM ; [facility] Sacroiliitis PAIN MANAGEMENT FOLLOW UP with T MIRIAM L JUAN CARLOS ANP-BC 11/08/2022 Last Documented On 3 9:53AM ; [facility] Arthralgia of the left knee/patella/tibia/fibula INJECTION with SHERRY GIBBS MD 10/18/2022 Last Documented On 3 5:48PM ; [facility] Arthralgia of the right knee/patella/tibia/fibula INJECTION with SHERRY GIBBS MD 10/18/2022 Last Documented On 3 5:48PM ; [facility] Osteoarthritis of both knees INJECTION with SHAN GIBBS MD 10/18/2022 Last Documented On 3 5:48PM ; [facility] Osteoarthritis of both knees * PHONE CALL with T MIRIAM L JUAN CARLOS ANP-BC 09/27/2022 Last Documented On 3 3:29PM ; [facility] Arthralgia of the left knee/patella/tibia/fibula PAIN MANAGEMENT FOLLOW UP with POLLO L JUAN CARLOS ANP-BC 09/11/2022 Last Documented On 3 10:30AM ; [facility] Arthralgia of the right knee/patella/tibia/fibula PAIN MANAGEMENT FOLLOW UP with POLLO L JUAN CARLOS ANP-BC 09/11/2022 Last Documented On 3 10:30AM ; [facility] Chronic pain PAIN MANAGEMENT FOLLOW UP with T MIRIAM L JUAN CARLOS ANP-BC 09/11/2022 Last Documented On 3 10:30AM ; [facility] Fatigue PAIN MANAGEMENT FOLLOW UP with T MIRIAM L JUAN CARLOS ANP-BC 09/11/2022 Last Documented On 3 10:30AM ; [facility] Localized primary osteoarthr itis of right knee PAIN MANAGEMENT FOLLOW UP with POLLO L JUAN CARLOS ANP-BC 09/11/2022 Last Documented On 3 10:30AM ; [facility] Lumbar spondylosis without m yelopathy or radiculopathy PAIN MANAGEMENT FOLLOW UP with POLLO L JUAN CARLOS ANP-BC 09/11/2022 Last Documented On 3 10:30AM ; [facility] Myalgia PAIN MANAGEMENT FOLLOW UP with T MIRIAM L JUAN CARLOS ANP-BC 09/11/2022 Last Documented On 3 10:30AM ; [facility] Sacroiliitis PAIN MANAGEMENT FOLLOW UP with T MIRIAM L JUAN CARLOS ANP-BC 09/11/2022 Last Documented On 3 10:30AM ; [facility] Arthralgia of the left knee/patella/tibia/fibula PAIN MANAGEMENT FOLLOW UP with POLLO L JUAN CARLOS ANP-BC 08/10/2022 Last Documented On 3 9:12AM ; [facility] Arthralgia of the right knee/patella/tibia/fibula PAIN MANAGEMENT FOLLOW UP with POLLO L JUAN CARLOS ANP-BC 08/10/2022 Last Documented On 3 9:12AM ; [facility] Chronic pain PAIN MANAGEMENT FOLLOW UP with T MIRIAM L JUAN CARLOS ANP-BC 08/10/2022 Last Documented On 3 9:12AM ; [facility] Fatigue PAIN MANAGEMENT FOLLOW UP with T MIRIAM L JUAN CARLOS ANP-BC 08/10/2022 Last Documented On 3 9:12AM ; [facility] Localized primary osteoarthr itis of right knee PAIN MANAGEMENT FOLLOW UP with POLLO L JUAN CARLOS ANP-BC 08/10/2022 Last Documented On 3 9:12AM ; [facility] Lumbar spondylosis without m yelopathy or radiculopathy PAIN MANAGEMENT FOLLOW UP with POLLO L JUAN CARLOS ANP-BC 08/10/2022 Last Documented On 3 9:12AM ; [facility] Myalgia PAIN MANAGEMENT FOLLOW UP with T MIRIAM L JUAN CARLOS ANP-BC 08/10/2022 Last Documented On 3 9:12AM ; [facility] Sacroiliitis PAIN MANAGEMENT FOLLOW UP with T MIRIAM L JUAN CARLOS ANP-BC 08/10/2022 Last Documented On 3 9:12AM ; [facility] Arthralgia of the left knee/patella/tibia/fibula PAIN MANAGEMENT NEW CONSULT with POLLO L JUAN CARLOS ANP-BC 06/15/2022 Last Documented On 3 2:40PM ; [facility] Arthralgia of the right knee/patella/tibia/fibula PAIN MANAGEMENT NEW CONSULT with POLLO L JUAN CARLOS ANP-BC 06/15/2022 Last Documented On 3 2:40PM ; [facility] DORSALGIA PAIN MANAGEMENT NEW CONSULT with POLLO L JUAN CARLOS ANP-BC 06/15/2022 Last Documented On 3 2:40PM ; [facility] Myalgia PAIN MANAGEMENT NEW CONSULT with POLLO L JUAN CARLOS ANP-BC 06/15/2022 Last Documented On 3 2:40PM ; [facility] Sacroiliitis PAIN MANAGEMENT NEW CONSULT with POLLO L JUAN CARLOS ANP-BC 06/15/2022 Last Documented On 3 2:40PM ; [facility] Medical Equipment - Implanted Devices Includes: Current and historical Devices No Medical Equipment Recorded Medications Includes: Current and historical Medications Current Medications (continue as prescribed) Pregabalin 150 MG Oral Capsule 05/08/2023 Provider: POLLO KERNS Diagnosis: TAKE 1 CAPSULE BY MOUTH TWO TIMES A DAY Last Documented On 4 3:51PM By POLLO KERNS ; [facility] Celecoxib 200 MG Oral Capsule 03/14/2023 Provider: SABAS GRIFFIN APRN-FPAAMARABC Diagnosis: TAKE 1 CAPSULE BY MOUTH ONCE DAILY Last Documented On 3 6:33PM By SABAS OVALLE- ; [facility] Pregabalin 150 MG Oral Capsule 01/16/2023 Provider: POLLO KERNS Diagnosis: TAKE 1 CAPSULE BY MOUTH TWO TIMES A DAY Last Documented On 3 8:50AM By POLLO KERNS ; [facility] Atorvastatin Calcium 40 MG Oral Tablet 01/04/2023 Pr ovider: DENISSE LIRIANO ANP Diagnosis: Last Documented On 01/29/2023 8:35AM By Jessica GARCIA ; [facility] Losartan Potassium 50 MG Oral Tablet 01/04/2023 Prov ider: DENISSE LIRIANO ANP Diagnosis: Last Documented On 01/29/2023 8:35AM By Jessica GARCIA ; [facility] hydroCHLOROthiazide 25 MG Oral Tablet 01/04/2023 Pro vider: DENISSE LIRIANO ANP Diagnosis: Last Documented On 01/29/2023 8:35AM By Jessica GARCIA ; [facility] Trulicity 1.5 MG/0.5ML Subcu taneous Solution Pen-injector 06/10/2022 Provider: DENISSE LIRIANO ANP Diagnosis: Last Documented On 06/15/2022 1:59PM By Jessica GARCIA ; [facility] OneTouch Verio In Vitro Strip 05/16/2022 Provider: DENISSE LIRIANO ANP Diagnosis: Last Documented On 06/15/2022 1:59PM By Jessica GARCIA ; [facility] Citalopram Hydrobromide 40 MG Oral Tablet 04/13/2022 Provider: HERI MADDEN PA-C Diagnosis: Last Documented On 06/15/2022 2:00PM By Jessica GARCIA ; [facility] Levothyroxine Sodium 112 MCG Oral Tablet 01/16/2022 Provider: HERI MADDEN PA-C Diagnosis: Last Documented On 06/15/2022 2:01PM By Jessica GARCIA ; [facility] Polyethylene Glycol 3350 17 GM/SCOOP Oral Powder 11/03/2021 Provider: SIMON SANCHEZ NP Diagnosis: Last Documented On 06/15/2022 2:02PM By Jessica GARCIA ; [facility] Past Medications on file Celecoxib 200 MG Oral Capsule 01/02/2023 - 03/14/2023 Provider: POLLO RANGEL ANP-BC Diagnosis: TAKE 1 CAPSULE BY MOUTH ONCE DAILY Last Documented On 3 6:25PM By SABAS GRIFFIN PAYROLL ADMINISTRATIVE ASSISTANT-BC ; [facility] Celecoxib 200 MG Oral Capsule 11/21/2022 - 01/02/2023 Provider: SABAS Hodge PRN-FPA, PAYROLL ADMINISTRATIVE ASSISTANT-BC Diagnosis: TAKE 1 CAPSULE BY MOUTH ONCE DAILY Last Documented On 3 3:49PM By POLLO RANGEL ANP-BC ; [facility] Pregabalin 150 MG Oral Capsule 11/21/2022 - 01/29/2023 Provider: SABAS GRIFFIN DEPARTMENT SECRETARY-FPA, PAYROLL ADMINISTRATIVE ASSISTANT-BC Diagnosis: Other chronic pa in TAKE 1 CAPSULE BY MOUTH TWO TIMES A DAY Last Documented On 01/29/2023 8:34AM By Jessica GARCIA ; [facility] Pregabalin 150 MG Oral Capsule 11/21/2022 - 01/29/2023 Provider: SABAS GRIFFIN APRN-FPA, PAYROLL ADMINISTRATIVE ASSISTANT-BC Diagnosis: Other chronic pa in TAKE 1 CAPSULE BY MOUTH TWO TIMES A DAY Last Documented On 01/29/2023 8:34AM By Jessica GARCIA ; [facility] Celecoxib 200 MG Oral Capsule 11/01/2022 - 11/21/2022 Provider: POLLO DANGBC Diagnosis: TAKE 1 CAPSULE BY MOUTH ONCE DAILY Last Documented On 3 12:27PM By SABAS GRIFFIN [facility] ; [facility] Celecoxib 200 MG Oral Capsule 10/02/2022 - 11/01/2022 Provider: POLLO CARPIO-BC Diagnosis: TAKE 1 CAPSULE BY MOUTH ONCE DAILY Last Documented On 3 8:42AM By POLLO DANG ; [facility] Pregabalin 150 MG Oral Capsule 09/11/2022 - 11/21/2022 Provider: POLLO RANGEL ANP-BC Diagnosis: Other chronic pa in 1 CAPSULE TWO TIMES A DAY Last Documented On 3 12:27PM By SABAS GRIFFIN [facility] ; [facility] Celecoxib 200 MG Oral Capsule 08/10/2022 - 11/08/2022 Provider: POLLO CARPIO-BC Diagnosis: Dorsalgia, unspe cified 1 capsule daily Last Documented On 11/08/2022 9:24AM By Jessica GARCIA ; [facility] Pregabalin 75 MG Oral Capsule 08/10/2022 - 09/11/2022 Provider: POLLO DANGBC Diagnosis: Other chronic pa in 1 CAPSULE TWO TIMES A DAY Last Documented On 09/11/2022 9:32AM By Jessica GARCIA ; [facility] Pregabalin 150 MG Oral Capsule 08/10/2022 - 09/11/2022 Provider: POLLO CARPIO-BC Diagnosis: Other chronic pa in 1 CAPSULE TWO TIMES A DAYsta rt after complete 75mg titration Last Documented On 3 10:02AM By POLLO DANG ; [facility] Celecoxib 200 MG Oral Capsule 06/15/2022 - 08/10/2022 Provider: POLLO DANGBC Diagnosis: Dorsalgia, unspe cified 1 capsule daily Last Documented On 3 9:02AM By POLLO DANG ; [facility] Lidocaine 5% External Patch 06/15/2022 - 08/10/2022 Provider: POLLO L JUAN CARLOS ANP-BC Diagnosis: Dorsalgia, unspe cified as directed apply patch to a ffected area for 12 hours and remove for 12 hours Last Documented On 08/10/2022 8:35AM By Jessica GARCIA ; [facility] Davonte Thompson In Vitro Strip 05/16/2022 - 01/29/2023 Provider: DENISSE CARPIO Diagnosis: Last Documented On 01/29/2023 8:34AM By Jessica GARCIA ; [facility] Famotidine 40 MG Oral Tablet 05/03/2022 - 06/15/2022 P rovider: HERI MADDEN PA-C Diagnosis: Last Documented On 06/15/2022 2:00PM By Jessica GARCIA ; [facility] Atenolol-Chlorthalidone 100- 25 MG Oral Tablet 04/13/2022 - 01/29/2023 Provider: HERI MADDEN PA-C Diagnosis: Last Documented On 01/29/2023 8:34AM By Jessica GARCIA ; [facility] Meloxicam 15 MG Oral Tablet 04/13/2022 - 08/10/2022 Pr ovider: HERI MADDEN PA-C Diagnosis: Last Documented On 08/10/2022 8:35AM By Jessica GARCIA ; [facility] Medications Administered Includes: Administered Medications in patient's chart Medications Administered Diagnosis Date Pro vider Xylocaine 1% IJ SOLN 10/18/2022 SHERRY GIBBS MD administered by Dr. Gibbs for local Last Documented On 3 11:38AM By Jazzy Smith RN ; [facility] Sensorcaine-MPF 0.5% IJ SOLN 10/18/2022 SHERRY GIBBS MD administered by Dr. Gibbs in both knees Last Documented On 3 11:44AM By Jazzy Smith RN ; [facility] Kenalog 40 MG/ML IJ SUSP 10/18/2022 REAL GIBBS MD administered by Dr. Gibbs in left knee Last Documented On 3 11:42AM By Jazzy Smith RN ; [facility] Kenalog 40 MG/ML IJ SUSP 10/18/2022 REAL GIBBS MD administered by Dr. Gibbs in right knee Last Documented On 3 11:42AM By Jazzy Smith RN ; [facility] Sodium Chloride 0.9% IV SOLN 10/18/2022 SHERRY GIBBS MD administered by Dr. Gibbs for [facility] Last Documented On 3 11:40AM By Jazzy Smith RN ; [facility] Results Includes: Results from 07/12/2023 through 07/11/2024 No Results Recorded For Specified Dates History of Present Illness History of Present Illness not supported for this document type No History of Present Illness Recorded Social History Description Last Updated Tobacco non-user 01/29/2023 Last Documented On 3 9:14AM ; [facility] Alcohol 06/15/2022 Last Documented On 3 2:40PM ; [facility] Amount of alcohol per day: Occasionally 06/15/2022 Last Documented On 3 2:40PM ; [facility] Difficulty walking 06/15/2022 Last Documented On 3 2:40PM ; [facility] Drug use 06/15/2022 Last Documented On 3 2:40PM ; [facility] Smoking packs of cigarettes per day Occa sional cigar 06/15/2022 Last Documented On 3 2:40PM ; [facility] Type: Pot occasionally 06/15/2022 Last Documented On 3 2:40PM ; [facility] Smoking Status Unknown Procedures and Surgical History Surgical History Last Updated No Pacemaker 01/29/2023 Last Documented On 3 9:14AM ; [facility] Surgical / procedural history None 01/29 Last Documented On 3 9:14AM ; [facility] Medical History Includes: Medical History in patient's chart Description Last Updated team primary care physician 01/29/2023 Last Documented On 3 9:14AM ; [facility] CT/MRI Been a while 01/29/2023 Last Documented On 3 9:14AM ; [facility] Currently wearing eyeglasses 01/29/2023 Last Documented On 3 9:14AM ; [facility] Moderate to severe pain 01/29/2023 Last Documented On 3 9:14AM ; [facility] Myelogram Dont know what this is 023 Last Documented On 3 9:14AM ; [facility] NCV/EMG Dont know what this is 3 Last Documented On 3 9:14AM ; [facility] No Pain Pump 01/29/2023 Last Documented On 3 9:14AM ; [facility] No Spinal cord stimulator 01/29/2023 Last Documented On 3 9:14AM ; [facility] Other method: 01/29/2023 Last Documented On 3 9:14AM ; [facility] Physical therapy 01/29/2023 Last Documented On 3 9:14AM ; [facility] Please list all illnesses/co nditions you have been diagnosed with: Arthritis, scoliosis, degenerative disc and joint disease, ibs, depression, diabetes, morbid obesity?. not sure at the moment 01/29/2023 Last Documented On 3 9:14AM ; [facility] Please list all surgeries: C section 1993/2011d&c 2009vaginal 1999tonsils out, tubes in ears,gall bladder 2005endometrial ablation 2017 maybe 01/29/2023 Last Documented On 3 9:14AM ; [facility] Ultrasound Been a while 01/29/2023 Last Documented On 3 9:14AM ; [facility] Uses a cane for support 01/29/2023 Last Documented On 3 9:14AM ; [facility] X-rays Been a while 01/29/2023 Last Documented On 3 9:14AM ; [facility] Family History Includes: Family History in patient's chart Description Last Updated Family history of stroke/paralysis 01/29 Last Documented On 3 9:14AM ; [facility] Maternal history of stroke/paralysis Last Documented On 3 9:14AM ; [facility] Reported family history of seizures 01/17 Last Documented On 3 9:14AM ; [facility] Review of Systems Review of Systems not supported for this document type No Review of Systems Recorded Mental Status No Mental Status Recorded Functional Status No Functional Status Recorded Physical Exam Physical Exam not supported for this document type No Physical Exam Recorded Allergies Includes: Active, inactive, and resolved Allergies No Known Allergies Insurance Includes: Active Insurance Policies Plan Name Member ID Group # Subscriber Relationship Effect mindy Dates 1 - [facility] [id number] SABAS BURGESS Self Clinical Notes Includes: Signed Clinical Notes starting from 04/07/2022 No Clinical Notes Recorded
--- OUTSIDE RECORDS SUMMARY | 2024-07-11 15:02 | XMS_ITS | Clinical Summary ---
Author Organization [facility] Address [address] [place] [address] Care Team Providers Care Deck Steward Name Role Phone Unavailable Primary Care Provider Unavailabl e Source Comments [email or web address],non-owned Affiliates and Associated Physician Practices is amultiple site organization consisting of ambulatory clinics and hospital sitesin [place], [place], [place] and [place]. This disclosure is being madepursuant to the Care Everywhere program and may not contain all information available regarding this patient. Last updated 17.[email or web address] Allergies No known active allergies Medications * Be aware that medications may not be up to date on this document. Alwaysverify current medications with the patient. VITAMINS PO Take by mouth daily with food. Active levothyroxine (SYNTHROID) 112 MCG tablet Take 112 mcg by mouth daily before breakfast. Active HEPARIN SODIUM, PORCINE, IJ 1 mL by Injection route 2 times daily. Active Active Problems Problem Noted Date Diagnosed Date Obesity 08/04/2011 Personal history of DVT (deep vein thrombosis) 0 08/04/2011 Hypothyroidism 08/04/2011 Previous delivery, antepartum condition or complication 08/04/2011 Advanced maternal age risk, currently 0 08/04/2011 Family history of hypertension 08/04/2011 Family History Medical History Relation Name Comments Hypertension Father Hypertension Mother Relation Name Status Comments Father Mother Social History Tobacco Use Types Packs/Day Years Used Date Smoking Tobacco: Never Smokeless Tobacco: Never Alcohol Use Standard Drinks/Week Comments No 0 (1 standard drink = 0.6 oz pur e alcohol) Comments No Sex and Gender Information Value Date Recorded Sex Assigned at Not on file 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 Gender Identity Not on file Sexual Orientation Not on file Last Filed Vital Signs Vital Sign Reading Time Taken Comments Blood Pressure 108/78 01/12/2012 3:09 PM CDT Pulse 89 01/12/2012 3:09 PM CDT Temperature - - Respiratory Rate - - Oxygen Saturation 99% 01/12/2012 3:09 PM CDT Inhaled Oxygen Concentration - - Weight 171.5 kg (378 lb) 06/19/2016 9:38 AM CDT Height 165.1 cm (5' 5 ) 06/19/2016 9:38 AM CDT Body Mass Index 62.9 06/19/2016 9:38 AM CDT Plan of Treatment Health Maintenance Due Date Last Done Comments COLOGUARD (AGES 45-75) - COL ON CA SCREENING 1974 COLON MONITORING 1974 COLONOSCOPY - COLON CA SCREENING 1974 CT COLONOGRAPHY - COLON CA SCREENING 1974 Colorectal Cancer Screening 1974 FIT - COLON CA SCREENING 1974 FLEX SIG - COLON CA SCREENING 1974 LIPID TESTING 1974 MAMMOGRAM 1974 HIV SCREENING 1989 HEPATITIS C SCREENING 02/15/1992 DTAP/TDAP/TD VACCINES (1 - Tdap) 1993 HEPATITIS B VACCINE (1 of 3 - 19+ 3-dose series) 1993 COVID-19 VACCINE (1 - 2023-2 5 season) 2023 PNEUMOCOCCAL VACCINE 50+ (1 of 1 - PCV) 02/20/2024 ZOSTER VACCINE (1 of 2) 02/20/2024 DEPRESSION SCREENING 03/19/2024 INFLUENZA VACCINE (Season Ended) 2024 HIB VACCINE Aged Out No longer eligi ble based on patient's age to complete this topic HPV VACCINE Aged Out No longer eligi ble based on patient's age to complete this topic MENINGOCOCCAL (Group B) VACC INE SHARED DECISION-MAKING Aged Out No longer eligibl e based on patient's age to complete this topic MENINGOCOCCAL GROUPS A/C/Y/W VACCINE Aged Out No longer eligible b ased on patient's age to complete this topic Insurance [facility]
--- OUTSIDE RECORDS SUMMARY | 2024-07-11 15:02 | XMS_ITS | Clinical Summary ---
Author Organization [facility] Address [address] [place] [address] Phone Care Team Providers Care Buggy Ladle Tender Name Role Phone HERI MADDEN PA-C Primary Care Provider [phone] Reason for Visit and Chief Complaint The Chief Complaint is: 3 MO FU Plan of Treatment No Plan of Treatment Recorded Assessments Includes: Assessments from this encounter Findings - Localized primary osteoarthritis of right knee [M17.11 - Unilateral primary osteoarthritis, right knee] - Last Documented On 01/29/2023 9:14AM ; [facility] - Sacroiliitis [M46.1 - Sacroiliitis, not elsewhere classified] - Last Documented On 01/29/2023 9:14AM ; [facility] - Arthralgia of the right knee/patella/tibia/fibula [M25.561 - Pain in right knee] - Last Documented On 01/29/2023 9:14AM ; [facility] - Arthralgia of the left knee/patella/tibia/fibula [M25.562 - Pain in left knee] - Last Documented On 01/29/2023 9:14AM ; [facility] - 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 [M47.816 - Spondylosis without myelopathy or radiculopathy, lumbar region] - Last Documented On 01/29/2023 9:14AM ; [facility] - Chronic pain [G89.29 - Other chronic pain] - Last Documented On 01/29/2023 9:14AM ; [facility] - Myalgia [M79.10 - Myalgia, unspecified site] - Last Documented On 01/29/2023 9:14AM ; [facility] Medical Equipment - Implanted Devices Includes: Current Devices No Medical Equipment Recorded Medications Includes: Medications discussed during this encounter and other current Medications Discontinued / Stopped on this date SABASLEON GRIFFIN APRN-REINA DIET AIDE-BC on 11/21/2022 Pregabalin 150 MG Oral Capsule Provider: SABAS GRIFFIN SPORTS COMMENTATOR- FPA DIET AIDE-BC Diagnosis: Other chronic pa in Last Documented On 01/29/2023 8:34AM By Jessica GARCIA ; [facility] Pregabalin 150 MG Oral Capsule Provider: SABAS GRIFFIN APRN- FPA DIET AIDE-BC Diagnosis: Other chronic pa in Last Documented On 01/29/2023 8:34AM By Jessica GARCIA ; [facility] OneTouch Verio In Vitro Strip Provider: DENISSE CARPIO Diagnosis: Last Documented On 01/29/2023 8:34AM By Jessica GARCIA ; [facility] Atenolol-Chlorthalidone 100-25 MG Oral Tablet Provider: HERI HENDRICKS-C Diagnosis: Last Documented On 01/29/2023 8:34AM By Jessica GARCIA ; [facility] Current Medications (continue as prescribed) Pregabalin 150 MG Oral Capsule 05/08/2023 Provider: POLLO DANGBC Diagnosis: TAKE 1 CAPSULE BY MOUTH TWO TIMES A DAY Last Documented On 4 3:51PM By POLLO CARPIO-BC ; [facility] Celecoxib 200 MG Oral Capsule 03/14/2023 Provider: SABAS JOSHI DIET AIDE-BC Diagnosis: TAKE 1 CAPSULE BY MOUTH ONCE DAILY Last Documented On 3 6:33PM By SABAS OVALLE-BC ; [facility] Pregabalin 150 MG Oral Capsule 01/16/2023 Provider: POLLO DANGBC Diagnosis: TAKE 1 CAPSULE BY MOUTH TWO TIMES A DAY Last Documented On 3 8:50AM By POLLO CARPIO-BC ; [facility] Atorvastatin Calcium 40 MG Oral Tablet 01/04/2023 Pr ovider: DENISSE CARPIO Diagnosis: Last Documented On 01/29/2023 8:35AM By Jessica GARCIA ; [facility] Losartan Potassium 50 MG Oral Tablet 01/04/2023 Prov ider: DENISSE LIRIANO ANP Diagnosis: Last Documented On 01/29/2023 8:35AM By Jessica GARCIA ; [facility] hydroCHLOROthiazide 25 MG Oral Tablet 01/04/2023 Pro vider: DENISSE LIRIANO ANP Diagnosis: Last Documented On 01/29/2023 8:35AM By Jessica GARCIA ; [facility] Trulicity 1.5 MG/0.5ML Subcu taneous Solution Pen-injector 06/10/2022 Provider: DENISSE LIRIANO ANP Diagnosis: Last Documented On 06/15/2022 1:59PM By Jessica GARCIA ; [facility] OneTouch Verio In Vitro Strip 05/16/2022 Provider: DENISSE LIRIANO ANP Diagnosis: Last Documented On 06/15/2022 1:59PM By Jessica GARCIA ; [facility] Citalopram Hydrobromide 40 MG Oral Tablet 04/13/2022 Provider: HERI MADDEN PA-C Diagnosis: Last Documented On 06/15/2022 2:00PM By Jessica GARCIA ; [facility] Levothyroxine Sodium 112 MCG Oral Tablet 01/16/2022 Provider: HERI MADDEN PA-C Diagnosis: Last Documented On 06/15/2022 2:01PM By Jessica GARCIA ; [facility] Polyethylene Glycol 3350 17 GM/SCOOP Oral Powder 11/03/2021 Provider: SIMON SANCHEZ INSPECTOR BRAKE LINING Diagnosis: Last Documented On 06/15/2022 2:02PM By Jessica GARCIA ; [facility] Medications Administered Includes: Administered Medications from this encounter No Administered Medications Recorded Vital Signs Includes: Vital Signs from this encounter Vital Name 01/29/2023 08:29A Blood Pressure Sitting R 110/80 Pulse Rate-Sitting (bpm) 98 Temp-Temporal 96.4 Height (in) 65 Weight (lb) 326 Body Mass Index 54.2 Body Surface Area 2.4 Pain Level 6 Oxygen Saturation (%) 97 Last Documented: On 01/29/2023 8:33AM ; [facility] Results Includes: Results discussed during this [...] both sides Discussion: Patient returns in follow-up for knee and back pain. Steroid injections in October provided 60% pain relief for 4-5 weeks. She feels the pain has worsened some since. She is still working on weight loss and trying to be more active. She is doing home exercises for the knee and low back at least twice per week. Patient reports the ability to help a friend more, which she was unable to do in the past. However, knee pain can be limiting at times. We discussed viscosupplementation for the knee pain as well as medial branch blocks for low back symptoms. She would like to hold off for now. She continues pregabalin at 150 mg BID. She feels this is beneficial. She also utilizes edible marijuana gummies with benefit. We will follow-up with her as needed. She may obtain her pregabalin through her PCP to avoid multiple office visits. She is scheduled to see him again and March. Past note: Patient presents in follow up to bilateral [...] the last year since starting to the [facility]. Blood sugars are better controlled at [...] PCP has recommended she start a supplement [id number]. She has not done this yet. Otherwise, [...] the last year since starting to the [facility]. Blood sugars are better controlled at [...] PCP has recommended she start a supplement [id number]. She has not done this yet. Otherwise, [...] years. She has been more sedentary since [employer] pandemic started and admits this has worsened [...] hip joints.] Social History Description Last Updated Tobacco non-user 01/29/2023 Last Documented On 3 9:14AM ; [facility] Alcohol 06/15/2022 Last Documented On 3 8:29AM ; [facility] Amount of alcohol per day: Occasionally 06/15/2022 Last Documented On 3 8:29AM ; [facility] Difficulty walking 06/15/2022 Last Documented On 3 8:29AM ; [facility] Drug use 06/15/2022 Last Documented On 3 8:29AM ; [facility] Smoking packs of cigarettes per day Occa sional cigar 06/15/2022 Last Documented On 3 8:29AM ; [facility] Type: Pot occasionally 06/15/2022 Last Documented On 3 8:29AM ; [facility] Smoking Status Unknown Procedures and Surgical History Includes: Procedures from this encounter Procedures Code Diagnosis Performing Provider Service L ocation Service Date walker Last Documented On 3 8:29AM ; [facility] a standard wheelchair Last Documented On 3 8:29AM ; [facility] use of tobacco assessment performed 1000F Last Documented On 3 8:36AM ; [facility] review of medications documented 1160F Last Documented On 3 8:36AM ; [facility] screening for adult depression: impressi on and score seven Last Documented On 3 8:29AM ; [facility] standardized depression screening: posit mindy for symptoms Last Documented On 3 8:29AM ; [facility] Clinical summary provided to patient ~ Patient understands and agrees with treatment plan. 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/29/2023 Last Documented On 3 9:14AM ; [facility] CT/MRI Been a while 01/29/2023 Last Documented On 3 9:14AM ; [facility] Currently wearing eyeglasses 01/29/2023 Last Documented On 3 9:14AM ; [facility] Moderate to severe pain 01/29/2023 Last Documented On 3 9:14AM ; [facility] Myelogram Dont know what this is 023 Last Documented On 3 9:14AM ; [facility] NCV/EMG Dont know what this is 3 Last Documented On 3 9:14AM ; [facility] No Pain Pump 01/29/2023 Last Documented On 3 9:14AM ; [facility] No Spinal cord stimulator 01/29/2023 Last Documented On 3 9:14AM ; [facility] Other method: 01/29/2023 Last Documented On 3 9:14AM ; [facility] Physical therapy 01/29/2023 Last Documented On 3 9:14AM ; [facility] Please list all illnesses/co nditions you have been diagnosed with: Arthritis, scoliosis, degenerative disc and joint disease, ibs, depression, diabetes, morbid obesity?. not sure at the moment 01/29/2023 Last Documented On 3 9:14AM ; [facility] Please list all surgeries: C section 1993/2011d&c 2009vaginal 1999tonsils out, tubes in ears,gall bladder 2005endometrial ablation 2017 maybe 01/29/2023 Last Documented On 3 9:14AM ; [facility] Ultrasound Been a while 01/29/2023 Last Documented On 3 9:14AM ; [facility] Uses a cane for support 01/29/2023 Last Documented On 3 9:14AM ; [facility] X-rays Been a while 01/29/2023 Last Documented On 3 9:14AM ; [facility] Family History Includes: Family History addressed during this encounter Description Last Updated Family history of stroke/paralysis 01/29 Last Documented On 3 9:14AM ; [facility] Maternal history of stroke/paralysis Last Documented On 3 9:14AM ; [facility] Reported family history of seizures 01/17 Last Documented On 3 9:14AM ; [facility] Review of Systems Includes: Review of [...] Diagnosis PAIN MANAGEMENT FOLLOW UP POLLO RANGEL ANP-[facility] 01/30/20 23 8:20AM 9:01AM Sacroiliitis,Ost eoarthritis Localized Primary Knee Right,Chronic Pain,Arthralgia - Knee / Patella / Tibia / Fibula Right,Arthralgia - Knee / Patella / Tibia / Fibula Left,Spondylosis Without Myelopathy Or Radiculopathy Lumbar Region,Myalgia , Unspecified Cite (M79.10) Insurance Includes: Active Insurance Policies Plan Name Member ID Group # Subscriber Relationship Effect mindy Dates - [facility] [id number] SABAS BURGESS Self Clinical Notes Includes: Clinical Notes from this encounter * Progress note Date Encounter Last Documented by 01/29/2023 PAIN MANAGEMENT FOLLOW UP Last d ocumented on 01/29/2023; 9:14 AM, POLLO RANGEL ANP-; [facility] Chief Complaint The Chief Complaint is: 3 MO FU. History of Present Illness - [...] both sides Discussion: Patient returns in follow-up for knee and back pain. Steroid injections in October provided 60% pain relief for 4-5 weeks. She feels the pain has worsened some since. She is still working on weight loss and trying to be more active. She is doing home exercises for the knee and low back at least twice per week. Patient reports the ability to help a friend more, which she was unable to do in the past. However, knee pain can be limiting at times. We discussed viscosupplementation for the knee pain as well as medial branch blocks for low back symptoms. She would like to hold off for now. She continues pregabalin at 150 mg BID. She feels this is beneficial. She also utilizes edible marijuana gummies with benefit. We will follow-up with her as needed. She may obtain her pregabalin through her PCP to avoid multiple office visits. She is scheduled to see him again and March. Past note: Patient presents in follow up to bilateral [...] the last year since starting to the [facility]. Blood sugars are better controlled at [...] PCP has recommended she start a supplement [id number]. She has not done this yet. Otherwise, [...] the last year since starting to the [facility]. Blood sugars are better controlled at [...] PCP has recommended she start a supplement [id number]. She has not done this yet. Otherwise, [...] Score: 19 Date:06/15/22 Past Medical/Surgical History Reported: career representative, Physical therapy, Other method:, Please list all illnesses/conditions you have been diagnosed with: Arthritis, scoliosis, degenerative disc and joint disease, ibs, depression, diabetes, morbid obesity?. not sure at the moment, and Please list all surgeries: Csection d&c 2008vaginal 1998tonsils out, tubes in ears,gall bladder 2005endometrial [...] know what this is. Current Medication - Atorvastatin Calcium 40 MG Oral Tablet One tablet daily 30 days, 0 refills - Celecoxib 200 MG Oral Capsule TAKE 1 CAPSULE BY MOUTH ONCE DAILY, 90 days, 0 refills - Citalopram Hydrobromide 40 MG Oral Tablet One tablet daily 90 days, 0 refills - hydroCHLOROthiazide 25 MG Oral Tablet One tablet daily 30 days, 0 refills - Levothyroxine Sodium 112 MCG Oral Tablet One tablet daily 90 days, 0 refills - Losartan Potassium 50 MG Oral Tablet One tablet daily 30 days, 0 refills - OneTouch Verio In Vitro Strip as directed 25 days, 0 refills - Polyethylene Glycol 3350 17 GM/SCOOP Oral Powder as directed 30 days, 0 refills - Pregabalin 150 MG Oral Capsule TAKE 1 CAPSULE BY MOUTH TWO TIMES A DAY, 30 days, 2 refills - Trulicity 1.5 MG/0.5ML Subcutaneous Solution Pen-injector as directed 28 days, 0 refills Social History Difficulty walking. Behavioral: Amount of alcohol per day: Occasionally. Tobacco use: Smoking packs of cigarettes per day Occasional cigar and tobacco non-user. Alcohol: Alcohol. Drug Use: Drug use Type: [...] than noted. Physical Findings - Vitals taken 01/29/2023 08:29 am BP-Sitting R 110/80 mmHg Pulse Rate-Sitting 98 bpm Temp-Temporal 96.4 F Height 65 in Weight 326 lbs Body Mass Index 54.2 kg/m2 Body Surface Area 2.4 m2 Pain Level 6 Pain Level Note BACK AND KNEES Oxygen Saturation 97 % Psychiatric: Psychiatric: Value PHQ9 score: 7 Constitutional: Well developed, morbidly obese. Well nourished. In no acute distress. HEENT: NC/AT. Anicteric. Clear Conjunctiva. PERRLA. CVS: Peripheral pulses palpable in all extremities. Pulmonary: . Normal chest expansion bilaterally. Spine/MSK: Hypersensitive to light touch lumbar spine and SI joints. Positive facet loading. Tenderness medial joint line bilateral knee. Mild pain with flexion bilateral knees. Gait: Not antalgic. No steppage [...] home exercises. Continue pregabalin 150 mg BID. Discussed Visco supplementation for bilateral knee pain. Discussed medial branch blocks and treatment of lumbar spondylosis. Patient will consider these options and call the office if she wishes to proceed. Follow-up as needed Practice Management Use of tobacco assessment performed Review of medications documented; Standardized depression screening: positive for symptoms and for adult impression and score seven. Results of this interaction were communicated directly [...] but may be subject to typographical or environmental services tech errors. Verify all diagnoses, medications, dosages, and patient instructions with patient and/or the originator of this document. Care Team - HERI MADDEN PA-C Health Reminders - Assess BMI satisfied 01/29/2023. - Assess Tobacco Use satisfied 01/29/2023. - Depression Screening satisfied 01/29/2023.
--- OUTSIDE RECORDS SUMMARY | 2024-07-11 15:02 | XMS_ITS | Clinical Summary ---
Author Organization [facility] Address [address] [place] [address] Phone Care Team Providers Care Pillowcase Cutter Name Role Phone HERI MADDEN PA-C Primary Care Provider [phone] Reason for Visit and Chief Complaint The Chief Complaint is: Pt. here today for bilateral knee joint aspiration and steroid injection under ultrasound guidance Plan of Treatment No Plan of Treatment Recorded Assessments Includes: Assessments from this encounter Findings - [M17.0 - Bilateral primary osteoarthritis of knee] Osteoarthritis of both knees - Last Documented On 10/18/2022 5:48PM ; [facility] - [M25.561 - Pain in right knee] Arthralgia of the right knee/patella/tibia/fibula - Last Documented On 10/18/2022 5:48PM ; [facility] - [M25.562 - Pain in left knee] Arthralgia of the left knee/patella/tibia/fibula - Last Documented On 10/18/2022 5:48PM ; [facility] Medical Equipment - Implanted Devices Includes: Current Devices No Medical Equipment Recorded Medications Includes: Medications discussed during this encounter and other current Medications Current Medications (continue as prescribed) Pregabalin 150 MG Oral Capsule 05/08/2023 Provider: POLLO DANGBC Diagnosis: TAKE 1 CAPSULE BY MOUTH TWO TIMES A DAY Last Documented On 4 3:51PM By POLLO DANGBC ; [facility] Celecoxib 200 MG Oral Capsule 03/14/2023 Provider: SABAS GRIFFIN [employer] ARCHITECT-FPA, CASHIER ASSISTANT-BC Diagnosis: TAKE 1 CAPSULE BY MOUTH ONCE DAILY Last Documented On 6:33PM By SABAS GRIFFIN CASHIER ASSISTANT-BC ; [facility] Pregabalin 150 MG Oral Capsule 01/16/2023 Provider: POLLO CARPIO-BC Diagnosis: TAKE 1 CAPSULE BY MOUTH TWO TIMES A DAY Last Documented On 8:50AM By POLLO CARPIO-BC ; [facility] Atorvastatin Calcium 40 MG Oral Tablet 01/04/2023 Pr ovider: DENISSE LIRIANO ANP Diagnosis: Last Documented On 01/29/2023 8:35AM By Jessica GARCIA ; [facility] Losartan Potassium 50 MG Oral Tablet 01/04/2023 Prov ider: DENISSE LIRIANO ANP Diagnosis: Last Documented On 01/29/2023 8:35AM By Jessica GARCIA ; [facility] hydroCHLOROthiazide 25 MG Oral Tablet 01/04/2023 Pro vider: DENISSE LIRIANO ANP Diagnosis: Last Documented On 01/29/2023 8:35AM By Jessica GARCIA ; [facility] Trulicity 1.5 MG/0.5ML Subcu taneous Solution Pen-injector 06/10/2022 Provider: DENISSE LIRIANO ANP Diagnosis: Last Documented On 06/15/2022 1:59PM By Jessica GARCIA ; [facility] OneTouch Verio In Vitro Strip 05/16/2022 Provider: DENISSE LIRIANO ANP Diagnosis: Last Documented On 06/15/2022 1:59PM By Jessica GARCIA ; [facility] Citalopram Hydrobromide 40 MG Oral Tablet 04/13/2022 Provider: HERI MADDEN PA-C Diagnosis: Last Documented On 06/15/2022 2:00PM By Jessica GARCIA ; [facility] Levothyroxine Sodium 112 MCG Oral Tablet 01/16/2022 Provider: HERI MADDEN PA-C Diagnosis: Last Documented On 06/15/2022 2:01PM By Jessica GARCIA ; [facility] Polyethylene Glycol 3350 17 GM/SCOOP Oral Powder 11/03/2021 Provider: SIMON SANCHEZ WINDOWS SOFTWARE ENGINEER Diagnosis: Last Documented On 06/15/2022 2:02PM By Jessica GARCIA ; [facility] Medications Administered Includes: Administered Medications from this encounter Medications Administered Diagnosis Date Pro vider Xylocaine 1% IJ SOLN 10/18/2022 SHERRY GIBBS MD administered by Dr. Gibbs for local Last Documented On 3 11:38AM By Jazzy Smith RN ; [facility] Sensorcaine-MPF 0.5% IJ SOLN 10/18/2022 SHERRY GIBBS MD administered by Dr. Gibbs in both knees Last Documented On 3 11:44AM By Jazzy Smith RN ; [facility] Kenalog 40 MG/ML IJ SUSP 10/18/2022 REAL GIBBS MD administered by Dr. Gibbs in left knee Last Documented On 3 11:42AM By Jazzy Smith RN ; [facility] Kenalog 40 MG/ML IJ SUSP 10/18/2022 REAL GIBBS MD administered by Dr. Gibbs in right knee Last Documented On 3 11:42AM By Jazzy Smith RN ; [facility] Sodium Chloride 0.9% IV SOLN 10/18/2022 SHERRY GIBBS MD administered by Dr. Gibbs for local Last Documented On 3 11:40AM By Jazzy Smith RN ; [facility] Vital Signs Includes: Vital Signs from this encounter Vital Name 10/18/2022 10:06A Blood Pressure Sitting L 109/65 BP Cuff Size Regular Pulse Rate-Sitting (bpm) 82 Pulse Rhythm Regular Height (in) 65 Weight (lb) 340 Body Mass Index 56.6 Body Surface Area 2.5 Pain Level 5 Oxygen Saturation (%) 95 Last Documented: On 10/18/2022 10:12A M ; [facility] Results Includes: Results discussed during this encounter No Results Recorded For Specified Dates History of Present Illness Includes: History of Present Illness from this encounter MONSTER BRUGESS is a 47 year old female. - Allergy list reviewed - Medication list reviewed Social History Description Last Updated Alcohol 06/15/2022 Last Documented On 3 10:04AM ; [facility] Amount of alcohol per day: Occasionally 06/15/2022 Last Documented On 3 10:04AM ; [facility] Difficulty walking 06/15/2022 Last Documented On 3 10:04AM ; [facility] Drug use 06/15/2022 Last Documented On 3 10:04AM ; [facility] Smoking packs of cigarettes per day Occa sional cigar 06/15/2022 Last Documented On 3 10:04AM ; [facility] Type: Pot occasionally 06/15/2022 Last Documented On 3 10:04AM ; [facility] Smoking Status Unknown Procedures and Surgical History Includes: Procedures from this encounter Procedures Code Diagnosis Performing Provider Service L ocation Service Date review of medications documented 1160F Last Documented On 3 10:06AM ; [facility] Surgical History Last Updated No Pacemaker 01/29/2023 Last Documented On 3 10:04AM ; [facility] Surgical / procedural history None 01/29 Last Documented On 3 10:04AM ; [facility] Medical History Includes: Medical History addressed during this encounter Description Last Updated 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/2023 Last Documented On 3 10:04AM ; [facility] CT/MRI Been a while 01/29/2023 Last Documented On 3 10:04AM ; [facility] Currently wearing eyeglasses 01/29/2023 Last Documented On 3 10:04AM ; [facility] Moderate to severe pain 01/29/2023 Last Documented On 3 10:04AM ; [facility] Myelogram Dont know what this is 023 Last Documented On 3 10:04AM ; [facility] NCV/EMG Dont know what this is 3 Last Documented On 3 10:04AM ; [facility] No Pain Pump 01/29/2023 Last Documented On 3 10:04AM ; [facility] No Spinal cord stimulator 01/29/2023 Last Documented On 3 10:04AM ; [facility] Other method: 01/29/2023 Last Documented On 3 10:04AM ; [facility] Physical therapy 01/29/2023 Last Documented On 3 10:04AM ; [facility] Please list all illnesses/co nditions you have been diagnosed with: Arthritis, scoliosis, degenerative disc and joint disease, ibs, depression, diabetes, morbid obesity?. not sure at the moment 01/29/2023 Last Documented On 3 10:04AM ; [facility] Please list all surgeries: C section 1993/2011d&c 2009vaginal 1999tonsils out, tubes in ears,gall bladder 2005endometrial ablation 2017 maybe 01/29/2023 Last Documented On 3 10:04AM ; [facility] Ultrasound Been a while 01/29/2023 Last Documented On 3 10:04AM ; [facility] Uses a cane for support 01/29/2023 Last Documented On 3 10:04AM ; [facility] X-rays Been a while 01/29/2023 Last Documented On 3 10:04AM ; [facility] Family History Includes: Family History addressed during this encounter Description Last Updated Family history of stroke/paralysis 01/29 Last Documented On 3 10:04AM ; [facility] Maternal history of stroke/paralysis Last Documented On 3 10:04AM ; [facility] Reported family history of seizures 01/17 Last Documented On 3 10:04AM ; [facility] Review of Systems Includes: Review of Systems from this encounter No Review of Systems Recorded Mental Status Includes: Mental Status from this encounter No Mental Status Recorded Functional Status Includes: Functional Status from this encounter No Functional Status Recorded Physical Exam Includes: Physical Exam from this encounter Allergies Includes: Active Allergies No Known Allergies Encounters Encounter Provider Location Date Check-In Time Check- Out Time Diagnosis INJECTION SHERRY GIBBS MD [facility] 3 10:00AM 10:51AM Arthralgia - Knee / Patella / Tibia / Fibula Right,Arthralg ia - Knee / Patella / Tibia / Fibula Left,Osteoarth ritis Knees Both Insurance Includes: Active Insurance Policies Plan Name Member ID Group # Subscriber Relationship Effect mindy Dates - [facility] [id number] SABAS BURGESS Self Clinical Notes Includes: Clinical Notes from this encounter * Progress note Date Encounter Last Documented by 10/18/2022 INJECTION Last documented on 10/18/2022; 5:48 PM, SHERRY GIBBS MD; [facility] Chief Complaint The Chief Complaint is: Pt. here today for bilateral knee joint aspiration and steroid injection under ultrasound guidance. History of Present Illness SABAS BURGESS is a 47 year old female. - Allergy list reviewed - Medication list reviewed Current Medication - Atenolol-Chlorthalidone 100-25 MG Oral Tablet One tablet daily 90 days, 0 refills - Celecoxib 200 MG Oral Capsule 1 capsule daily, 30 days, 1 refills - Celecoxib 200 MG Oral Capsule [...] Pen-injector as directed 28 days, 0 refills Past Medical/Surgical History Reported: healthcare sales representative, Physical therapy, Other method:, Please list [...] and NCV/EMG Dont know what this is. Social History Difficulty walking. Behavioral: Amount of alcohol per day: Occasionally. Tobacco use: Smoking packs of cigarettes per day Occasional cigar. Alcohol: Alcohol. Drug Use: Drug use Type: Pot occasionally. Allergies - No Known Allergies Family History Stroke/paralysis Reported family history of seizures Maternal: Stroke/paralysis Physical Findings - Vitals taken 10/18/2022 10:06 am BP-Sitting L 109/65 mmHg BP Cuff Size Regular Pulse Rate-Sitting 82 bpm Pulse Rhythm Regular Height 65 in Weight 340 lbs Body Mass Index 56.6 kg/m2 Body Surface Area 2.5 m2 Pain Level 5 Oxygen Saturation 95 % Assessment - [M17.0 - Bilateral primary osteoarthritis of knee] Osteoarthritis of both knees - [M25.561 - Pain in right knee] Arthralgia of the right knee/patella/tibia/fibula - [M25.562 - Pain in left knee] Arthralgia of the left knee/patella/tibia/fibula Therapy - Other Administered 5 mL of Xylocaine 1 % on 10/18/22 10:00a, administered by Dr. Gibbs for local Administered 5 mL of Sodium Chloride 0.9 % on 10/18/22 10:00a, administered by Dr. Gibbs for local Administered 1 mL of Kenalog 40 MG/ML on 10/18/22 10:00a, administered by Dr. Gibbs in right knee Administered 1 mL of Kenalog 40 MG/ML on 10/18/22 10:00a, administered by Dr. Gibbs in left knee Administered 8 mL of Sensorcaine-MPF 0.5 % on 10/18/22 10:00a, administered by Dr. Gibbs in both knees Counseling/Education Appropriate wound care, activity restrictions and post-operative instructions were reviewed with the patient and provided in written form at time of discharge. Practice Management Review of medications documented. Care Team - HERI MADDEN PA-C Health Reminders - Assess BMI satisfied 10/18/2022. - Assess Tobacco Use satisfied 10/18/2022. User Defined 1 BILATERAL KNEE ASPIRATION AND INTRA-ARTICULAR STEROID INJECTION UNDER ULTRASOUND GUIDANCE: The procedure was described in detail to the patient. Potential benefits, alternatives to the procedure (including doing nothing) and risks associated with the procedure were explained, which included but were not limited to possible serious local or systemic infection, bleeding/bruising, deformity, decreased mobility, allergic reaction to medication and/or increase in or failure to treat pain. The patient has also had an explanation of the side effects of corticosteroid and risk of immunosuppression or elevation of blood pressure and/or blood sugars. Allergies confirmed. The patient has had an opportunity to have all questions answered both on the day of initial consultation and again today. The patient wishes to proceed, believes that the potential for benefit outweighs risk of harm, and has voluntarily signed a procedure specific consent form. DESCRIPTIONS OF PROCEDURE: The patient was placed in the supine position and made comfortable with pillows under the head and knees, with the affected extremity slightly flexed at 30 degrees. The cephalad extension of the superior recess of the left knee capsule was identified by ultrasound in the longitudinal view using the curvalinear ultrasound probe at 10-12 MHz, confirmed in transverse axial view, and marked with a sterile marker. All major vessels and nerves were identified using colorflow doppler and avoided. Area was cleansed and draped in the typical sterile fashion with a 3ml chloraprep applicator using strict aseptic technique, which was also utilized throughout. No more than 5 mls of 1% Lidocaine was used to anesthetize the injection site via infiltration using a 27g 1.25 inch needle after negative aspiration. Following this, a 21 gauge, 2.0 -inch beveled needle was advanced in plane under the transverse axial view until the appropriate tissue plane was entered under ultrasound guidance. Any joint fluid encountered was aspirated without difficulty and discarded. After negative repeat aspiration, a 5ml solution containing 40mg triamcinolone mixed with 0.5% PF bupivacaine was injected into the left knee joint capsule without difficulty. Injectate was visualized entering the appropriate tissue plane under live ultrasonography. The needle was withdrawn completely intact. Sterile bandage was applied. The same exact procedure was repeated, accommodating for contralateral joint aspiration and injection, was repeated on the right side with similar results and no evidence of immediate complication. The patient appeared to tolerate the procedure well with no evidence of subsequent complication. Images were saved to the patient's chart. Patient was evaluated for an appropriate period of time after the procedure with no evidence of complications and eventually discharged under their own power with instructions to monitor for signs of infection (including but not limited to fever, chills, night sweats, increased pain or reduced motility, redness, swelling, warmth, pain or discharge at the site) and to report immediately to our office or the nearest ED if after hours should these signs and/or symptoms develop. Appropriate post-procedural instructions regarding wound care and activity restrictions were provided to the patient in verbal and written form prior to discharge from the clinic.
--- OUTSIDE RECORDS SUMMARY | 2024-07-11 15:02 | XMS_ITS | Clinical Summary ---
Author Organization [facility] Address [address] [place] [address] Phone Care Team Providers Care Pinsetter Mechanic Helper Name Role Phone Marcin Norwood PAC Primary Care Provider [phone] Allergies No known active allergies Medications citalopram (CELEXA) 20 MG Tablet TK 1 T PO QD/ 40mg 0 6 Active levothyroxine (SYNTHROID) 112 MCG Tablet TK 1 T PO D 0 6 Active Meloxicam 15 MG Tablet TK 1 T PO QD 0 6 Active traMADol (ULTRAM) 50 MG Tablet TK 1 T PO Q 6 H PRN 0 6 Active Azelastine HCl 0.15 % SolutionIndicat ions:PNAR (perennial non-allergic rhinitis),Hyper trophy of inferior nasal turbinate 2 sprays in each nostril every evening; may also use in the morning for congestion, runny nose or sneezing 1 Inhaler 11 6 Active cephALEXin (KEFLEX) 500 MG Capsule 7 Active lisinopril (PRINIVIL, ZESTRIL) 20 MG Tablet TK 1 T PO QD 0 7 Active atenolol-chlort halidone (TENORETIC) 50-25 MG Tablet Take 1 Tab by mouth daily. Active HYDROcodone-sharon taminophen (NORCO) 10-325 MG Tablet Take 1 Tab by mouth every 6 hours as needed for Severe pain. 20 Tab 8 Active Additional Information Patient not taking.Reported on 09/04/2018 famotidine (PEPCID) 20 MG Tablet Take 1 Tab by mouth 2 times daily. 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 Impacted cerumen, bilateral 12/15/2015 PNAR (perennial non-allergic rhinitis) 6 Hypertrophy of inferior nasal turbinate 12/15/19 16 Pachyderma of larynx 12/15/2015 Laryngopharyngeal reflux 12/15/2015 LINDSEY (obstructive sleep apnea) 12/15/2015 Family History Medical History Relation Name Comments Hypertension Father Cancer Maternal Aunt colon Colon Cancer Maternal Aunt Cancer Maternal Grandmother uterine Diabetes Maternal Grandmother Arthritis Mother Cancer Mother CHEST Diabetes Mother Hypertension Mother Stroke Mother Diabetes Sister Hypertension Sister Relation Name Status Comments Father Alive Maternal Aunt Maternal Grandmother Mother Sister Social History Tobacco Use Types Packs/Day Years Used Date Smoking Tobacco: Never Smokeless Tobacco: Never Alcohol Use Standard Drinks/Week Comments Yes 2 (1 standard drink = 0.6 oz pur e alcohol) social Comments No Sex and Gender Information Value Date Recorded Sex Assigned at Not on file Legal Sex Female 12:02 AM CDT Gender Identity Not on file Sexual Orientation Not on file Occupation Industry Job Start Date Job End Date homemaker Not on file Not on file Not on file Last Filed Vital Signs Vital Sign Reading Time Taken Comments Blood Pressure 100/55 09/17/2018 12:23 PM CDT Pulse 83 09/17/2018 12:23 PM CDT Temperature 36 C (96.8 F) 09/17/2018 12:23 PM CDT Respiratory Rate 18 09/17/2018 12:23 PM CDT Oxygen Saturation 97% 09/17/2018 12:23 PM CDT Inhaled Oxygen Concentration - - Weight 178.3 kg (393 lb) 09/04/2018 3:00 PM CDT Height 165.1 cm (5' 5 ) 09/04/2018 3:00 PM CDT Body Mass Index 65.4 09/04/2018 3:00 PM CDT Plan of Treatment Health Maintenance Due Date Last Done Comments TdaP Immunization 1974 Hepatitis B Immunization (1 of 3 - 19+ 3-dose series) 1993 Colonoscopy 2019 Colorectal Cancer Screening 2019 Influenza Immunization (#1) 2023 SARS-COV-2 Immunization (1 - season) 2023 Cologuard 02/20/2024 Immunochemical Fecal Occult Blood 02/20/2024 Pneumococcal Immunization (5 0+ years) (1 of 1 - PCV) 02/20/2024 Zoster Immunization (1 of 2) 02/20/2024 Respiratory Syncytial Virus (RSV) Immunization (Adult) (1 - 1-dose 75+ series) 2049 Discussion re Starting/Frequency of Mammograms Discontinued 03/01/2016, 02/27/2015 Mammogram Discontinued 03/01/2016, 02/27/2015 Hepatitis C Virus (HCV) Screening Completed 09/12/2018 Meningococcal Immunization (ACWY) Aged Out No longer eligible based on patient's age to complete this topic Rotavirus Immunization Aged Out No lo nger eligible based on patient's age to complete this topic Procedures Procedure Name Priority Date/Time Associated Diagnosis Comments HEPATITIS PANEL ACUTE (AHP) Routine 09/12/2018 6:53 AM CDT Gastroesophageal reflux disease without esophagitis Epigastric pain Elevated LFTs ILIANA SCREENING BILATERAL DIGITAL W CAD Routine 03/01/2016 9:09 AM INVENTORY ASSOCIATE Visit for screening mammogram from Last 3 Months or Most Recently Relevant to Health Maintenance Results * HEPATITIS PANEL ACUTE (AHP) (09/12/2018 6:53 AM CDT) HEPATITIS A IGM ANTIBODY NON DETECTED NON DETECTED 09/12/2018 3:06 PM CDT [facility] Comment: IGM Antibodies to HAV not detected. Does not exclude early acute or recovered HAV infection. HEP B CORE AB (IGM) NON DETECTED NON DETECTED 09/12/2018 3:06 PM CDT [facility] Comment: IGM anti-HBC not detected. Does not exclude the possibility of exposure to or infection with HBV. HEPATITIS B SURFACE ANTIGEN NON DETECTED NON DETECTED 09/12/2018 3:06 PM CDT [facility] Comment: A nonreactive test result does not exclude the possibility of exposure to or infection with Hepatitis B virus. A nonreactive test result in individuals with prior exposure to hepatitis B may be due to antigen levels below the detection limit of this assay or lack of antigen reactivity to the antibodies in this assay. hepatitis C antibody 0.06 <1 S/CO 09/12/2018 3:06 PM CDT [facility] Comment: Signal/Cutoff ratio < 0.79 is Nondetected Signal/Cutoff ratio 0.80-0.99 is Grayzone Signal/Cutoff ratio > 0.99 is Detected Supplemental assays are recommended if signal/cutoff ratio is >/=1.00. Signal/cutoff ratio result >/= 5.00 is 97% predictive of positivity for recombinant immunoblot assay (RIBA) and will be reported to the [place] [facility] as required. Blood specimen (specimen) Venipuncture / Unknown 09/12/2018 6:53 AM CDT 09/12/2018 8:25 AM CDT us Jeanne Bruno BELLOWS CHARGER ASSEMBLER, SEAT COVER INSTALLER HEMATOLOGY ORDERABLES Fi nal Result [facility] [address] [place] [address], * ILIANA SCREENING BILATERAL DIGITAL W CAD (03/01/2016 9:09 AM INVENTORY ASSOCIATE) Anatomical Region Laterality Modality breast Bilateral Mammography 03/01/2016 8:43 AM INVENTORY ASSOCIATE Narrative 03/01/2016 3:31 PM INVENTORY ASSOCIATE - ILIANA SCREENING BILATERAL DIGITAL W CAD BILATERAL DIGITAL SCREENING MAMMOGRAM WITH CAD WITH MEDIOLATERAL OBLIQUE CRANIOCAUDAL: 03/01/2016 The study was acquired using digital technology and interpreted from soft copy. Current study was also evaluated with ICAD version 7.2. CLINICAL: Routine screening. Patient has no complaints. No personal history of cancer. No family history of breast cancer. COMPARISONS: Comparison is made to exams dated: 02/27/2015 and 02/27/2014 [facility]. BREAST TISSUE:The tissue of both breasts is predominantly fatty. FINDINGS: No significant masses, calcifications, or other findings are seen in either breast. There has been no significant interval change. IMPRESSION: BI-RAD 1 NEGATIVE There is no mammographic evidence of malignancy. A 1 year screening mammogram is recommended. The patient has been or will be contacted. The patient will be entered into a reminder system with a target due date of 1 year for her next screening exam. Electronically signed by: Adrián Bailey M.D. mmd/penrad:03/01/2016 12:19:18 Pit Shoveler: Ailyn Ellis (Sneha), [facility] letter sent: Normal Exam Reading location: [facility] BI-RADS: 1 Negative Procedure Note Adrián Bailey MD - 03/01/2016 - ILIANA SCREENING BILATERAL DIGITAL W CAD BILATERAL DIGITAL SCREENING MAMMOGRAM WITH CAD WITH MEDIOLATERAL OBLIQUE CRANIOCAUDAL: 03/01/2016 The study was acquired using digital technology and interpreted from soft copy. Current study was also evaluated with ICAD version 7.2. CLINICAL: Routine screening. Patient has no complaints. No personal history of cancer. No family history of breast cancer. COMPARISONS: Comparison is made to exams dated: 02/27/2015 and 02/27/2014 [facility]. BREAST TISSUE:The tissue of both breasts is predominantly fatty. FINDINGS: No significant masses, calcifications, or other findings are seen in either breast. There has been no significant interval change. IMPRESSION: BI-RAD 1 NEGATIVE There is no mammographic evidence of malignancy. A 1 year screening mammogram is recommended. The patient has been or will be contacted. The patient will be entered into a reminder system with a target due date of 1 year for her next screening exam. Electronically signed by: Adrián Bailey M.D. mmd/penrad:03/01/2016 12:19:18 Pit Shoveler: Ailyn Ellis (Sneha), [facility] letter sent: Normal Exam Reading location: [facility] BI-RADS: 1 Negative us Glenn Mendiola MD IMG MAMMO ORDERABLES Final Res ult from Last 3 Months or Most Recently Relevant to Health Maintenance Insurance [employer] Care Teams Pinsetter Mechanic Helper Relationship Specialty Start Date End Date Marcin Norwood PAC [address] [place] [address] PCP - General Physician Supervisor Furnace Process 02/08/15
--- OUTSIDE RECORDS SUMMARY | 2024-07-11 15:02 | XMS_ITS | Clinical Summary ---
Author Organization [facility] Address [address] [place] [address] Care Team Providers Care Reading Teacher Name Role Phone Marcin Norwood Primary Care Provider [phone] Allergies No known active allergies Medications levothyroxine [...] 05/13/2024 Assessment & Plan (05/13/2024 8:57 AM SUMMONS SERVER): Continue small frequent meals encouraging protein intake. [...] week. Assessment & Plan (05/17/2023 8:35 AM SUMMONS SERVER): This is a chronic condition which is not at goal of LDL less than 70 Continue atorvastatin Encouraged to eat healthy, include fresh fruits and vegetables daily and avoid eating fried foods more than once per week. Encouraged to take medications as prescribed. Lymphedema associated with obesity 02/13/2023 Assessment & Plan (02/13/2023 10:19 AM SUMMONS SERVER): This is a chronic condition which is worse on the left than the right Occupational [facility] at [facility] for evaluation. Primary hypertension 11/13/2022 Assessment & Plan (11/15/2023 8:52 AM CDT): This is a chronic condition which is at goal. Goal is less than 140/90 Continue losartan/HCTZ Encouraged to monitor weight and B/P at home. Encouraged to void caffeine and excessive alcohol consumption as this will elevate B/P Assessment & Plan (05/17/2023 8:33 AM SUMMONS SERVER): This is a chronic condition which is at goal of less than 140/90 Personally reviewed labs. Continue losartan, hydrochlorothiazide Encouraged to monitor weight and B/P at home Encouraged to take medications as prescribed. Assessment & Plan (02/13/2023 9:11 AM SUMMONS SERVER): This is a chronic condition which is [...] (11/03/2021): Added automatically from request for surgery [id number] Chronic constipation 11/02/2021 Assessment & Plan (11/02/2021 [...] control. Assessment & Plan (05/17/2023 8:33 AM SUMMONS SERVER): This is a chronic condition which is [...] atorvastatin Assessment & Plan (02/13/2023 9:10 AM SUMMONS SERVER): This is a chronic condition which is [...] time Assessment & Plan (03/16/2022 9:33 AM SUMMONS SERVER): This is a chronic condition which is [...] day. Assessment & Plan (05/17/2023 8:33 AM SUMMONS SERVER): This is a chronic condition which is [...] day. Assessment & Plan (03/16/2022 9:30 AM SUMMONS SERVER): .robert This is a chronic condition which [...] 10/11/2021 Assessment & Plan (02/07/2024 9:39 AM SUMMONS SERVER): Continue to advance diet as laid out [...] obesity. Assessment & Plan (05/17/2023 8:34 AM SUMMONS SERVER): This is a chronic condition which has slightly improved She has lost an additional 4 lb since her last office visit Increase Trulicity to 4.5 mg weekly Ambulatory referral to Bariatric surgery/Dr. Romero Encouraged continue healthy eating and exercise as tolerated Assessment & Plan (02/13/2023 9:11 AM SUMMONS SERVER): This is a chronic condition which continues 7 lb weight loss since last office visit Encouraged increase ambulation Discussed increasing Trulicity but since she is still losing weight we will maintain at current dose Assessment & Plan (02/13/2023 9:07 AM SUMMONS SERVER): >>ASSESSMENT AND PLAN FOR BODY MASS INDEX (BMI) 50.0-59.9, ADULT (HCC) WRITTEN ON 03/16/2022 9:30 AM BY DOMONIQUE LIRIANO, GENER[employer] PRODUCTION MANAGER This is a chronic condition which is improving. 36 lbs weight loss over last 5 months Total weight loss = 60lbs. In the last year. Has seen diabetes education and nutritional couseling increased trulicity 1.5mg weekly to promote weight loss. Assessment & Plan (02/13/2023 9:07 AM SUMMONS SERVER): >>ASSESSMENT AND PLAN FOR BODY MASS INDEX (BMI) 50.0-59.9, ADULT ([facility]) WRITTEN ON 07/14/2022 9:41 AM BY DOMONIQUE LIRIANO NP This is a chronic condition which is improving Further 22 lb weight loss since last office visit. Total weight loss since 10/07 equals 22 lb Continue Trulicity 1.5 mg Discussed increasing exercise in swimming pool Just walking in the pool . Assessment & Plan (02/13/2023 9:07 AM SUMMONS SERVER): >>ASSESSMENT AND PLAN FOR CLASS 3 SEVERE OBESITY DUE TO EXCESS CALORIES WITH SERIOUS COMORBIDITY AND BODY MASS INDEX (BMI) OF 50.0 TO 59.9 IN ADULT ([facility]) WRITTEN ON 11/13/2022 9:54 AM BY DOMONIQUE LIRIANO NP This is a chronic condition which is improving 8 lb weight loss since last office visit Increase Trulicity to 3 mg weekly Encourage continue weight loss and exercise >>ASSESSMENT AND PLAN FOR BODY MASS INDEX (BMI) 50.0-59.9, ADULT ([facility]) WRITTEN ON 11/13/2022 9:54 AM BY DOMONIQUE LIRIANO NP This is a chronic condition which is improving 8 lb weight loss since last office visit Increase Trulicity to 3 mg weekly Encourage continue weight loss and exercise Assessment & Plan (02/13/2023 9:07 AM SUMMONS SERVER): >>ASSESSMENT AND PLAN FOR CLASS 3 SEVERE OBESITY DUE TO EXCESS CALORIES WITH SERIOUS COMORBIDITY AND BODY MASS INDEX (BMI) OF 50.0 TO 59.9 IN ADULT ([facility]) WRITTEN ON 12/14/2021 10:54 AM BY DOMONIQUE LIRIANO NP This is a chronic condition which is improving by 13 lb weight loss. Encouraged weight loss and exercise Referred to diabetes education and nutritional couseling Continue trulicity 0.75mg weekly to promote weight loss. >>ASSESSMENT AND PLAN FOR BODY MASS INDEX (BMI) 50.0-59.9, ADULT ([facility]) WRITTEN ON 12/14/2021 10:55 AM BY DOMONIQUE LIRIANO NP This is a chronic condition which is improving. 13 lbs weight loss Has seen diabetes education and nutritional couseling Continue trulicity 0.75mg weekly to promote weight loss. Assessment & Plan (02/13/2023 9:07 AM SUMMONS SERVER): >>ASSESSMENT AND PLAN FOR CLASS 3 SEVERE OBESITY DUE TO EXCESS CALORIES WITH SERIOUS COMORBIDITY AND BODY MASS INDEX (BMI) OF 50.0 TO 59.9 IN ADULT ([facility]) WRITTEN ON 11/02/2021 11:14 AM BY DOMONIQUE LIRIANO NP This is a chronic condition which is improving by 14 lb weight loss. Encouraged weight loss and exercise Referred to diabetes education and nutritional couseling Continue trulicity 0.75mg weekly to promote weight loss. >>ASSESSMENT AND PLAN FOR BODY MASS INDEX (BMI) 50.0-59.9, ADULT ([facility]) WRITTEN ON 11/02/2021 11:14 AM BY DOMONIQUE LIRIANO NP This is a chronic condition which is improving. 14 lbs weight loss Referred to diabetes education and nutritional couseling Continue trulicity 0.75mg weekly to promote weight loss. Assessment & Plan (02/13/2023 9:07 AM SUMMONS SERVER): >>ASSESSMENT AND PLAN FOR CLASS 3 SEVERE OBESITY DUE TO EXCESS CALORIES WITH SERIOUS COMORBIDITY AND BODY MASS INDEX (BMI) OF 50.0 TO 59.9 IN ADULT ([facility]) WRITTEN ON 10/11/2021 6:13 PM BY DOMONIQUE LIRIANO, JOSELUIS This is a chronic condition Encouraged weight loss and exercise Referred to diabetes education and nutritional couseling Start trulicity 0.75mg weekly to promote weight loss. >>ASSESSMENT AND PLAN FOR BODY MASS INDEX (BMI) 50.0-59.9, ADULT ([facility]) WRITTEN ON 10/11/2021 6:14 PM BY DOMONIQUE LIRIANO, JOSELUIS This is a chronic condition Encouraged weight loss and exercise Referred to diabetes education and nutritional couseling Start trulicity 0.75mg weekly to promote weight loss. Encounters Date Type Department Care Team Description 05/19/2024 Results Follow-Up [facility] Diabetes Endocrine Care at [address] [id number] Domonique Liriano, GENERAL ROAD PRODUCTION MANAGER 05/16/2024 8:50 AM SUMMONS SERVER - 05/16/2024 11:59 PM SUMMONS SERVER Hospital Encounter [address] [address] Type 2 diabetes mellitus with microalbuminuria, without long-term current use of insulin (HCC) Discharge Disposition: Discharge to home or self care 05/16/2024 8:45 AM [address]S SERVER Lab [facility] Medical [facility] Outpatient Lab at [address] [place] [address] Type II diabetes mellitus with renal manifestations (HCC) (Primary Dx); Proteinuria 05/16/2024 8:00 AM SUMMONS SERVER Office Visit [facility] Diabetes Endocrine Care at [address] [place] [phone] Domonique Liriano, JOSELUIS Type 2 diabetes mellitus with microalbuminuria, without long-term current use of insulin (HCC) (Primary Dx); Hyperlipidemia associated with type 2 diabetes mellitus (HCC); Acquired hypothyroidism; Primary hypertension; Status post sleeve gastrectomy; Class 3 severe obesity due to excess calories with serious comorbidity and body mass index (BMI) of 40.0 to 44.9 in adult (HCC) 05/16/2024 Orders Only [facility] Diabetes Endocrine Care at [address] [phone] Yanira Ellison MD 05/13/2024 8:30 AM SUMMONS SERVER Office Visit [facility] [address] [facility] [address] [place] [phone] Adrián Romero MD Status post sleeve gastrectomy (Primary Dx) 05/06/2024 8:30 AM SUMMONS SERVER - 05/06/2024 11:59 PM SUMMONS SERVER Hospital Encounter [facility] Nutrition and Diabetic Education [address] [facility] Robbie Wing [address] [place] [address] Discharge Disposition: Discharge to home or self care from Last 3 Months Immunizations Immunization Administration Dates Next Due Pfizer SARS-CoV-2 Monovalent Vaccination (12+ Yrs) PURPLE 12/02/2021(Deferred: Patient Refused) Surgical History Surgery Date Site/Laterality Comments MYRINGOTOMY W/ TUBES TONSILLECTOMY COLONOSCOPY 11/14/2021 CHOLECYSTECTOMY N/A TUBAL LIGATION 03/19/2011 - 03/18/2012 Pt states she had done at [facility] UPPER GASTROINTESTINAL ENDOSCOPY 09/18/2023 SECTION 2 c sections and a v-back DILATION AND CURETTAGE OF UTERUS SLEEVE GASTROPLASTY 01/02/2024 Medical History Medical History Date Comments Hypothyroidism hypothyroidism Adiposity obesity Hx Other Medical DVT-2002 Gastroesophageal reflux disease GERD Depression Irritable bowel syndrome (IBS) Sleep apnea Hypertension Type 2 diabetes mellitus (HCC) Family History Medical History Relation Name Comments Other Father Alive and well; Depression Mother Depression; Diabetes Mother Diabetes type II Mother Diabetes -T ype II; Hypertension Mother Hypertension; Tuberculosis Mother Tuberculosis; Colon cancer Mother's Sister Diabetes Sister Breast cancer Neg Hx Ovarian cancer Neg Hx Thyroid cancer Neg Hx Relation Name Status Comments Brother Alive Father Alive Mother Mother's Sister Sister Alive Social History Tobacco Use Types Packs/Day Years Used Date Smoking Tobacco: Former Cigarettes Smokeless Tobacco: Never Tobacco Cessation:Counseling Given: Not Answered Comments:Pt will have a Cigarello occasionally Once a month Alcohol Use Standard Drinks/Week Comments Yes 0 (1 standard drink = 0.6 oz pur e alcohol) 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 Never 01/03/2024 Do you belong to any clubs o r organizations such as restorationism groups, unions, fraternal or athletic groups, or [...] any time in the past [address] [facility], were you homeless or living in a [facility] (including now)? No 01/03/2024 Personal Safety Answer Date Recorded Have you ever been in or are you currently in a harmful physical or emotional relationship or is someone making you feel afraid or unsafe? Denies 01/02/2024 Comments No Sex and Gender Information Value Date Recorded Sex Assigned at Not on file Legal Sex Female 7:20 PM SUMMONS SERVER Gender Identity Female 10/13/2019 10:18 PM CDT Sexual Orientation Straight 10/13/2019 10 :18 PM CDT Obstetrics History Para Term AB IAB SAB Ectopic Multiple Livin g Live Births 4 3 3 Date Outcome GA Total Labor Labor/2nd/3rd Weight Sex Type Anes PTL Barbra A1 A5 Name Clin Term Term Term Last Filed Vital Signs Vital Sign Reading Time Taken Comments Blood Pressure 106/60 05/16/2024 8:14 AM SUMMONS SERVER Pulse 115 05/13/2024 8:34 AM SUMMONS SERVER Temperature 36.3 C (97.3 F) 05/13/2024 8:34 AM SUMMONS SERVER Respiratory Rate 20 01/03/2024 11:41 AM CDT Oxygen Saturation 99% 05/13/2024 8:34 AM SUMMONS SERVER Inhaled Oxygen Concentration - - Weight 113.4 kg (250 lb) 05/16/2024 8:14 AM SUMMONS SERVER Height 165.1 cm (5' 5 ) 05/16/2024 8:14 AM SUMMONS SERVER Body Mass Index 41.6 05/16/2024 8:14 AM SUMMONS SERVER Plan of Treatment Health Maintenance Due Date Last Done Comments Cervical Cancer Screening 1975 Depression Screening 1975 Hepatitis C Screening 1975 DTaP/Tdap/Td Vaccine (1 - Tdap) 1985 Hepatitis B Screening 02/20/1992 Regular Well Visit/Exam 18-64 02/20/1992 Pneumococcal vaccine <65 (1 of 2 - PCV) 1993 Zoster Vaccine (1 of 2) 02/20/2024 Hemoglobin A1C 11/13/2024 05/16/2024, 10/18, 06/25/2023, Additional history exists Foot Exam 11/14/2024 11/15/2023, 04/20, 02/13/2023, Additional history exists Influenza Vaccine (Season Ended) 2024 Breast Cancer Screening-Mammogram 12/07/2024 12/08/2023, 09/16/2022, 03/24/2020, Additional history exists Albumin Creatinine Ratio, Urine 05/16/2025 05/16/2024, 12/19/2023, 11/07/2022 Lipid Panel 05/16/2025 05/16/2024, 04/0 10/2023, 11/07/2022, Additional history exists eGFR 05/16/2025 05/16/2024, 12/17, 01/02/2024, Additional history exists Dilated Eye Exam 05/16/2026 05/16/2024, , 02/20/2023 Colon Cancer Screening-Colonoscopy 11/15/20312021 Procedures Procedure Name Priority Date/Time Associated Diagnosis Comments EGFR Routine 05/16/2024 8:50 AM SUMMONS SERVER Type 2 diabetes mellitus with microalbuminuria, without long-term current use of insulin (HCC) THYROID FUNCTION CASCADE Routine 05/16/2024 8:50 AM SUMMONS SERVER Type 2 diabetes mellitus with microalbuminuria, without long-term current use of insulin (HCC) LIPID PANEL Routine 05/16/2024 8:50 AM SUMMONS SERVER Type 2 diabetes mellitus with microalbuminuria, without long-term current use of insulin (HCC) COMPREHENSIVE METABOLIC PANEL Routine 05/16/2024 8:50 AM SUMMONS SERVER Type 2 diabetes mellitus with microalbuminuria, without long-term current use of insulin (HCC) ALBUMIN CREATININE RATIO, URINE Routine 05/16/2024 8:50 AM SUMMONS SERVER Type 2 diabetes mellitus with microalbuminuria, without long-term current use of insulin ([facility]) DIABETIC EYE EXAM Routine 05/16/2024 8:2 6 AM SUMMONS SERVER POCT HEMOGLOBIN A1C Routine 05/16/2024 8 :19 AM SUMMONS SERVER Type 2 diabetes mellitus with microalbuminuria, without long-term current use of insulin (HCC) POCT GLUCOSE Routine 05/16/2024 8:14 AM SUMMONS SERVER Type 2 diabetes mellitus with microalbuminuria, without long-term current use of insulin ([facility]) DIABETIC EYE EXAM Routine 05/02/2024 8:2 7 AM SUMMONS SERVER SCREENING MAMMOGRAM BILATERAL W JEAN Schedule Routine, Read Routine (OP Routine) 12/08/2023 10:49 AM CDT Screening mammogram, encounter for COLONOSCOPY 11/14/2021 12:21 PM CDT from Last 3 Months or Most Recently Relevant to Health Maintenance Results * eGFR (05/16/2024 8:50 AM SUMMONS SERVER) eGFR >90 >=60 mL/min/1. 73 m2 Comment: [...] last reviewed 2021. Blood 05/16/2024 8:50 AM SUMMONS SERVER 05/16/2024 3:53 PM SUMMONS SERVER Domonique Liriano NP LAB BLOOD ORDERABLES Final Resu lt Performing Organization Address [facility] [[email or web address]] de Phone Number [facility] [address] [place] [address] * Thyroid Function Upson (05/16/2024 8:50 AM SUMMONS SERVER) Pathologist [facility] TSH 0.34 0.30 - 4.20 mcIUnit/mL Blood 05/16/2024 8:50 AM SUMMONS SERVER 05/16/2024 3:49 PM SUMMONS SERVER Domonique Liriano NP LAB BLOOD ORDERABLES Final Resu lt Performing Organization Address [facility] [[email or web address]] de Phone Number [facility] [phone] [address] [place] [address] * Albumin Creatinine Ratio, Urine (05/16/2024 8:50 AM SUMMONS SERVER) Albumin Ur <12.0 mg/L Comment: Interpretive Data No reference range established. Current interpretive data was last revised 2018. Creatinine Ur 211.8 mg/dL [facility] M[facility]RAW Comment: Interpretive Data No reference range established. Current interpretive data was last revised 2018. Albumin Creatinine Ratio, Ur <6 1 - 29 mg/g [facility] Urine 05/16/2024 8:50 AM SUMMONS SERVER 05/16/2024 3:49 PM SUMMONS SERVER us Domonique Liriano [address] PRODUCTION MANAGER LAB URINE ORDERABLES Final Resu lt [facility] [id number] [address] Department [place] [address] * Lipid panel (05/16/2024 8:50 AM SUMMONS SERVER) Cholesterol 110 30 - 199 mg/dL Comment: [...] on 2017. Triglycerides 58 <=149 mg/dL CH[facility]Z Comment: Interpretive Data Ages < or = [...] on 2017. HDL 50 >=40 mg/dL [facility] Comment: Interpretive Data Ages < or = [...] NCEP Expert Panel. Circulation 2004;110:227 3. Dave Meier et al. GRAHAM Cardiol. 2019July 17;5(5):540-548. doi: 10.1001/jamacardio.2020.0013 Current Interpretive Data was last revised on 2023. Non-HDL Cholesterol 60 mg/dL [facility]Z Comment: Interpretive Data Ages < or = [...] ratio 2 [facility]Z Blood 05/16/2024 8:50 AM SUMMONS SERVER 05/16/2024 3:49 PM SUMMONS SERVER Narrative CERNER CH - 05/16/2024 5:08 PM SUMMONS SERVER These lab test should be done fasting. This means do not eat or drink for at least 12 hours prior to getting your blood drawn. Has the patient been fasting for 8 hours or more?->Yes us Domonique Liriano NP LAB BLOOD ORDERABLES Final Resu lt [facility] [id number] [address] Department [place] [address] * (ABNORMAL) Comprehensive metabolic panel (05/16/2024 8:50 AM SUMMONS SERVER) Sodium 140 135 - 145 mmol/L Potassium, [...] classification and Diagnosis of Diabetes Diabetes Care 202; 46: S19-S40. Current interpretive data was last [...] Units/L CERNER CH Blood 05/16/2024 8:50 AM SUMMONS SERVER 05/16/2024 3:49 PM SUMMONS SERVER Result [facility] Domonique Liriano [address] PRODUCTION MANAGER LAB BLOOD ORDERABLES Final Resu lt [facility] [id number] [address] Department [place] [address] * Diabetic Eye Exam (05/16/2024 8:26 AM SUMMONS SERVER) Result [facility] Provider [facility] Final Result * POCT hemoglobin A1c (05/16/2024 8:19 AM SUMMONS SERVER) Hemoglobin A1C, POC 5.0 4.0 - 5.6 % Blood 05/16/2024 8:19 AM SUMMONS SERVER Result [facility] Domonique Liriano NP POINT OF CARE TEST ORDERABLES F inal Result * POCT glucose (05/16/2024 8:14 AM SUMMONS SERVER) Glucose Blood, POC 116 mg/dL Blood 05/16/2024 8:14 AM SUMMONS SERVER Result [facility] Domonique Liriano NP POINT OF CARE TEST ORDERABLES F inal Result * Diabetic Eye Exam (05/02/2024 8:27 AM SUMMONS SERVER) Result [facility] Provider [facility] Final Result * (ABNORMAL) Screening Mammogram Bilateral [...] Osorio MD - 11/14/2021 12:21 PM CDT [facility] Patient Name: Della Zhao Procedure Date: 11/14/2021 12:21 PM Date of : 1975 Admit Type: Outpatient Age: 46 Gender: Female Attending MD: Gavi Osorio M.D. Room: [facility] 1 Note Status: Finalized Patient Profile: [...] under direct vision. The Pediatric Colonoscope PCF-H190L [id number] was introducedthrough the anus and advanced to [...] 12:21 PM Procedure Code(s): --- Professional --- 84540, Colonoscopy, flexible; diagnostic, including collection of specimen(s) by brushing or washing, when performed (separateprocedure) Diagnosis Code(s): --- Professional --- Z12.11, Encounter for screening for malignant neoplasm of colon K64.8, Other hemorrhoids CPT copyright 2020 [employer]. All rights reserved. The codes documented in this report are preliminary and upon labeling associate reviewmay be revised to meet current compliance requirements. Recognized by the [employer] for promoting quality in endoscopy Gavi Osorio MD ENDOSCOPY PROCEDURES Final Result from Last 3 Months or Most Recently Relevant to Health Maintenance Insurance [id number] [place] [address] [facility] Advance Directives For more information, please contact: [phone] * Full Code (Latest Code Status on [...] 11:44 AM 11/14/2021 6:16 PM Care Teams Reading Teacher Relationship Specialty Start Date End Date Marcin Norwood PA [address] [place] [address] PCP - General Family Practice 09/03/19
--- OUTSIDE RECORDS SUMMARY | 2024-07-11 15:06 | XMS_ITS | Clinical Summary ---
Author Organization [facility] [[email or web address]] Address [address] [place] [address] Phone Care Team Providers Care Corn Shucker Name Role Phone HERI MADDEN PA-C Primary Care Provider [phone] Reason for Visit and Chief Complaint * PHONE CALL Plan of Treatment No Plan of Treatment Recorded Assessments Includes: Assessments from this encounter Findings - Osteoarthritis of both knees [M17.0 - Bilateral primary osteoarthritis of knee] - Last Documented On 09/27/2022 3:29PM ; [facility] [[email or web address]] Medical Equipment - Implanted Devices Includes: Current Devices No Medical Equipment Recorded Medications Includes: Medications discussed during this encounter and other current Medications Current Medications (continue as prescribed) Pregabalin 150 MG Oral Capsule 05/08/2023 Provider: POLLO DANGBC Diagnosis: TAKE 1 CAPSULE BY MOUTH TWO TIMES A DAY Last Documented On 4 3:51PM By POLLO CARPIO-BC ; [facility] Celecoxib 200 MG Oral Capsule 03/14/2023 Provider: SABAS GRIFFIN HAT CONE INSPECTOR-FPA, SALES SUPPORT SPECIALIST-BC Diagnosis: TAKE 1 CAPSULE BY MOUTH ONCE DAILY Last Documented On 3 6:33PM By SABAS TOMLINP-BC ; [facility] Pregabalin 150 MG Oral Capsule 01/16/2023 Provider: POLLO DANGBC Diagnosis: TAKE 1 CAPSULE BY MOUTH TWO TIMES A DAY Last Documented On 3 8:50AM By POLLO CARPIO-BC ; [facility] Atorvastatin Calcium 40 MG Oral Tablet 01/04/2023 Pr ovider: DENISSE K HERI ANP Diagnosis: Last Documented On 01/29/2023 8:35AM By Jessica GARCIA ; [facility] Losartan Potassium 50 MG Oral Tablet 01/04/2023 Prov ider: DENISSE LIRIANO ANP Diagnosis: Last Documented On 01/29/2023 8:35AM By Jessica GARCIA ; [facility] hydroCHLOROthiazide 25 MG Oral Tablet 01/04/2023 Pro vider: DENISSE LIRIANO ANP Diagnosis: Last Documented On 01/29/2023 8:35AM By Jessica GARCIA ; [facility] Trulicity 1.5 MG/0.5ML Subcu taneous Solution Pen-injector 06/10/2022 Provider: DENISSE LIRIANO ANP Diagnosis: Last Documented On 06/15/2022 1:59PM By Jessica GARCIA ; [facility] OneTouch Verio In Vitro Strip 05/16/2022 Provider: DENISSE LIRIANO ANP Diagnosis: Last Documented On 06/15/2022 1:59PM By Jessica GARCIA ; [facility] Citalopram Hydrobromide 40 MG Oral Tablet 04/13/2022 Provider: HERI MADDEN PA-C Diagnosis: Last Documented On 06/15/2022 2:00PM By Jessica GARCIA ; [facility] Levothyroxine Sodium 112 MCG Oral Tablet 01/16/2022 Provider: HERI MADDEN PA-C Diagnosis: Last Documented On 06/15/2022 2:01PM By Jessica GARCIA ; [facility] Polyethylene Glycol 3350 17 GM/SCOOP Oral Powder 11/03/2021 Provider: SIMON SANCHEZ TRAPPER BIRD Diagnosis: Last Documented On 06/15/2022 2:02PM By Jessica GARCIA ; [facility] Medications Administered Includes: Administered Medications from this encounter No Administered Medications Recorded Results Includes: Results discussed during this encounter No Results Recorded For Specified Dates History of Present Illness Includes: History of Present Illness from this encounter HPI Patient is experiencing increased knee pain. She is currently involved in therapy, but this is causing increased pain at times. Would like to proceed with steroid knee injections. Social History Description Last Updated Alcohol 06/15/2022 Last Documented On 3:25PM ; [facility] [[email or web address]] Amount of alcohol per day: Occasionally 06/15/2022 Last Documented On 3 3:25PM ; [facility] Difficulty walking 06/15/2022 Last Documented On 3 3:25PM ; [facility] Drug use 06/15/2022 Last Documented On 3 3:25PM ; [facility] [[email or web address]] Smoking packs of cigarettes per day Occa sional cigar 06/15/2022 Last Documented On 3 3:25PM ; [facility] Type: Pot occasionally 06/15/2022 Last Documented On 3 3:25PM ; [facility] [[email or web address]] Smoking Status Unknown Medical History Includes: Medical History addressed during this encounter No Medical History Recorded Family History Includes: Family History addressed during this encounter No Family History Recorded Review of Systems Includes: Review of Systems from this encounter No Review of Systems Recorded Mental Status Includes: Mental Status from this encounter No Mental Status Recorded Functional Status Includes: Functional Status from this encounter No Functional Status Recorded Physical Exam Includes: Physical Exam from this encounter No Physical Exam Recorded Allergies Includes: Active Allergies No Known Allergies Encounters Encounter Provider Location Date Check-In Time Check-Out Time Diagnosis * PHONE CALL POLLO KERNS 09/28/19 23 3:25PM 11:59PM Osteoarthritis Knees Both Insurance Includes: Active Insurance Policies Plan Name Member ID Group # Subscriber Relationship Effect mindy Dates 1 - [facility] [id number] SABAS BURGESS Self Clinical Notes Includes: Clinical Notes from this encounter * Progress note Date Encounter Last Documented by 09/27/2022 * PHONE CALL Last documented on 09/27/2022; 3:29 PM, POLLO KERNS; [facility] History of Present Illness Patient is experiencing increased knee pain. She is currently involved in therapy, but this is causing increased pain at times. Would like to proceed with steroid knee injections. Current Medication - Atenolol-Chlorthalidone 100-25 MG Oral [...] Pot occasionally. Allergies - No Known Allergies Assessment - Osteoarthritis of both knees [M17.0 - Bilateral primary osteoarthritis of knee] Plan StartCited - Bilateral primary osteoarthritis of knee Pain Management CPT/Joints and Bursa Inj: Major joint/bursa injection w/ U/S Instructions: consent for bilateral knee steroid injection under ultrasound guidance EndCited Care Team - HERI MADDEN PA-C Health Reminders - Assess Tobacco Use satisfied 09/27/2022.
--- OUTSIDE RECORDS SUMMARY | 2024-07-11 15:06 | XMS_ITS | Clinical Summary ---
Author Organization [facility] Address [address] [place] [address] Phone Care Team Providers Care Cigar Brander Name Role Phone HERI MADDEN PA-C Primary Care Provider [phone] Reason for Visit and Chief Complaint The Chief Complaint is: 1 MO FU Plan of Treatment No Plan of Treatment Recorded Assessments Includes: Assessments from this encounter Findings - Localized primary osteoarthritis of right knee [M17.11 - Unilateral primary osteoarthritis, right knee] - Last Documented On 09/11/2022 10:30AM ; [facility] - Sacroiliitis [M46.1 - Sacroiliitis, not elsewhere classified] - Last Documented On 09/11/2022 10:30AM ; [facility] - Arthralgia of the right knee/patella/tibia/fibula [M25.561 - Pain in right knee] - Last Documented On 09/11/2022 10:30AM ; [facility] - Arthralgia of the left knee/patella/tibia/fibula [M25.562 - Pain in left knee] - Last Documented On 09/11/2022 10:30AM ; [facility] - 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 [M47.816 - Spondylosis without myelopathy or radiculopathy, lumbar region] - Last Documented On 09/11/2022 10:30AM ; [facility] - Chronic pain [G89.29 - Other chronic pain] - Last Documented On 09/11/2022 10:30AM ; [facility] - Myalgia [M79.10 - Myalgia, unspecified site] - Last Documented On 09/11/2022 10:30AM ; [facility] - Fatigue [R53.83 - Other fatigue] - Last Documented On 09/11/2022 10:30AM ; [facility] Medical Equipment - Implanted Devices Includes: Current Devices No Medical Equipment Recorded Medications Includes: Medications discussed during this encounter and other current Medications Discontinued / Stopped on this date POLLO KERNS on 08/10/2022 Pregabalin 75 MG Oral Capsule Provider: POLLO KERNS Diagnosis: Other chronic pa in Last Documented On 09/11/2022 9:32AM By Jessica GARCIA ; [facility] Pregabalin 150 MG Oral Capsule Provider: POLLO KERNS Diagnosis: Other chronic pa in Last Documented On 3 10:02AM By POLLO KERNS ; [facility] New / Renewed during this visit POLLO KERNS on 09/11/2022 Pregabalin 150 MG Oral Capsule Provider: POLLO KERNS 30 day supply: 60 capsule, 2 refills Diagnosis: Other chronic pain 1 CAPSULE TWO TIMES A DAY Pharmacy: [facility] - [address] [place] [address], [id number] - Last Documented On 3 12:27PM By SABAS RODRIGUES ; [facility] Current Medications (continue as prescribed) Pregabalin 150 MG Oral Capsule 05/08/2023 Provider: POLLO KERNS Diagnosis: TAKE 1 CAPSULE BY MOUTH TWO TIMES A DAY Last Documented On 4 3:51PM By POLLO KERNS ; [facility] Celecoxib 200 MG Oral Capsule 03/14/2023 Provider: LILIA KIM Diagnosis: TAKE 1 CAPSULE BY MOUTH ONCE DAILY Last Documented On 3 6:33PM By SABAS RODRIGUES ; [facility] Pregabalin 150 MG Oral Capsule 01/16/2023 Provider: POLLO KERNS Diagnosis: TAKE 1 CAPSULE BY MOUTH TWO TIMES A DAY Last Documented On 3 8:50AM By POLLO RANGEL ANP- ; [facility] Atorvastatin Calcium 40 MG Oral Tablet 01/04/2023 Pr ovider: DENISSE LIRIANO ANP Diagnosis: Last Documented On 01/29/2023 8:35AM By Jessica GARCIA ; [facility] Losartan Potassium 50 MG Oral Tablet 01/04/2023 Prov ider: DENISSE K HERI ANP Diagnosis: Last Documented On 01/29/2023 8:35AM By Jessica GARCIA ; [facility] hydroCHLOROthiazide 25 MG Oral Tablet 01/04/2023 Pro vider: DENISSE LIRIANO ANP Diagnosis: Last Documented On 01/29/2023 8:35AM By Jessica GARCIA ; [facility] Trulicity 1.5 MG/0.5ML Subcu taneous Solution Pen-injector 06/10/2022 Provider: DENISSE LIRIANO ANP Diagnosis: Last Documented On 06/15/2022 1:59PM By Jessica GARCIA ; [facility] OneTouch Verio In Vitro Strip 05/16/2022 Provider: DENISSE LIRIANO ANP Diagnosis: Last Documented On 06/15/2022 1:59PM By Jessica GARCIA ; [facility] Citalopram Hydrobromide 40 MG Oral Tablet 04/13/2022 Provider: HERI MADDEN PA-C Diagnosis: Last Documented On 06/15/2022 2:00PM By Jessica GARCIA ; [facility] Levothyroxine Sodium 112 MCG Oral Tablet 01/16/2022 Provider: HERI MADDEN PA-C Diagnosis: Last Documented On 06/15/2022 2:01PM By Jessica GARCIA ; [facility] Polyethylene Glycol 3350 17 GM/SCOOP Oral Powder 11/03/2021 Provider: SIMON SANCHEZ STEREO EQUIPMENT REPAIRER Diagnosis: Last Documented On 06/15/2022 2:02PM By Jessica GARCIA ; [facility] Medications Administered Includes: Administered Medications from this encounter No Administered Medications Recorded Vital Signs Includes: Vital Signs from this encounter Vital Name 09/11/2022 10:09A 09/11/2022 09: 22A Blood Pressure Sitting R 120/98 130/100 Pulse Rate-Sitting (bpm) 84 Temp-Temporal 94.8 Height (in) 65 Pain Level 7 Oxygen Saturation (%) 97 Last Documented: On 09/11/2022 10:09A M ; [facility] On 09/11/2022 9:29AM ; [facility] Results Includes: Results discussed [...] the last year since starting to the [facility]. Blood sugars are better controlled at [...] PCP has recommended she start a supplement [id number]. She has not done this yet. Otherwise, [...] 06/15/2022 Last Documented On 3 9:21AM ; [facility] Amount of alcohol per day: Occasionally 06/15/2022 Last Documented On 3 9:21AM ; [facility] Difficulty walking 06/15/2022 Last Documented On 3 9:21AM ; [facility] Drug use 06/15/2022 Last Documented On 3 9:21AM ; [facility] Smoking packs of cigarettes per day Occa sional cigar 06/15/2022 Last Documented On 3 9:21AM ; [facility] Type: Pot occasionally 06/15/2022 Last Documented On 3 9:21AM ; [facility] Smoking Status Unknown Procedures and Surgical History Includes: Procedures from this encounter Procedures Code Diagnosis Performing Provider Service L ocation Service Date walker Last Documented On 3 9:21AM ; [facility] a standard wheelchair Last Documented On 3 9:21AM ; [facility] use of tobacco assessment performed 1000F Last Documented On 3 9:21AM ; [facility] review of medications documented 1160F Last Documented On 3 9:21AM ; [facility] screening for adult depression: impressi on and score seven Last Documented On 3 9:21AM ; [facility] standardized depression screening: posit mindy for symptoms Last Documented On 3 9:21AM ; [facility] Clinical summary provided to patient ~ Patient understands and agrees with treatment plan. Questions answered Last Documented On 3 9:21AM ; [facility] SOAPP-R: total score 19 Last Documented On 3 9:21AM ; [facility] Surgical History Last Updated No Pacemaker 09/11/2022 Last Documented On 3 10:30AM ; [facility] Surgical / procedural history None 09/11 Last Documented On 3 10:30AM ; 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 On 3 10:30AM ; [facility] CT/MRI Been a while 09/11/2022 Last Documented On 3 10:30AM ; [facility] Currently wearing eyeglasses 09/11/2022 Last Documented On 3 10:30AM ; [facility] Moderate to severe pain 09/11/2022 Last Documented On 3 10:30AM ; [facility] Myelogram Dont know what this is 023 Last Documented On 3 10:30AM ; [facility] NCV/EMG Dont know what this is 3 Last Documented On 3 10:30AM ; [facility] No Pain Pump 09/11/2022 Last Documented On 3 10:30AM ; [facility] No Spinal cord stimulator 09/11/2022 Last Documented On 3 10:30AM ; [facility] Other method: 09/11/2022 Last Documented On 3 10:30AM ; [facility] Physical therapy 09/11/2022 Last Documented On 3 10:30AM ; [facility] Please list all illnesses/co nditions you have been diagnosed with: Arthritis, scoliosis, degenerative disc and joint disease, ibs, depression, diabetes, morbid obesity?. not sure at the moment 09/11/2022 Last Documented On 3 10:30AM ; [facility] Please list all surgeries: C section 1993/2011d&c 2009vaginal 1999tonsils out, tubes in ears,gall bladder 2005endometrial ablation 2017 maybe 09/11/2022 Last Documented On 3 10:30AM ; [facility] Ultrasound Been a while 09/11/2022 Last Documented On 3 10:30AM ; [facility] Uses a cane for support 09/11/2022 Last Documented On 3 10:30AM ; [facility] X-rays Been a while 09/11/2022 Last Documented On 3 10:30AM ; [facility] Family History Includes: Family History addressed during this encounter Description Last Updated Family history of stroke/paralysis 09/11 Last Documented On 3 10:30AM ; [facility] Maternal history of stroke/paralysis Last Documented On 3 10:30AM ; [facility] Reported family history of seizures 08/18 Last Documented On 3 10:30AM ; [facility] Review of Systems Includes: [...] Diagnosis PAIN MANAGEMENT FOLLOW UP POLLO RANGEL ANP-[facility] 09/12/19 23 9:21AM 10:10AM Sacroiliitis,Ost eoarthritis Localized Primary Knee Right,Fatigue,Ch ronic Pain,Arthralgia - Knee / Patella / Tibia / Fibula Right,Arthralgia - Knee / Patella / Tibia / Fibula Left,Spondylosis Without Myelopathy Or Radiculopathy Lumbar Region,Myalgia , Unspecified Cite (M79.10) Insurance Includes: Active Insurance Policies Plan Name Member ID Group # Subscriber Relationship Effect mindy Dates - [facility] [id number] SABAS BURGESS Self Clinical Notes Includes: Clinical Notes from this encounter * Progress note Date Encounter Last Documented by 09/11/2022 PAIN MANAGEMENT FOLLOW UP Last d ocumented on 09/11/2022; 10:30 AM, POLLO RANGEL ANP-; [facility] Chief Complaint The Chief [...] the last year since starting to the [facility]. Blood sugars are better controlled at [...] PCP has recommended she start a supplement [id number]. She has not done this yet. Otherwise, [...] years. 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 Results of [...] but may be subject to typographical or bale coverer errors. Verify all diagnoses, medications, dosages, and patient instructions with patient and/or the originator of this document. Care Team - HERI MADDEN PA-C Health Reminders - Assess Tobacco Use satisfied 09/11/2022. - Depression Screening satisfied 09/11/2022.
--- OUTSIDE RECORDS SUMMARY | 2024-07-11 15:06 | XMS_ITS ---
Care Plan - [facility] Created on: July 11, 2024 SABAS BURGESS : 1975 Sex: Female Author Organization [facility] Address [address] [place] [address] Phone Care Team Providers Care Vulcanizer Rubber Plate Name Role Phone HERI MADDEN PA-C Primary Care Provider [phone]
--- OUTSIDE RECORDS SUMMARY | 2024-07-11 15:06 | XMS_ITS | Clinical Summary ---
Author Organization [facility] Address [address] [place] [address] Phone Care Team Providers Care Radiochemical Technician Name Role Phone HERI MADDEN PA-C Primary Care Provider [phone] Reason for Visit and Chief Complaint The Chief Complaint is: FU BILATERAL KNEE STEROID INJECTION DONE UNDER ULTRASOUND DONE 10/18/22, 60% RELIEF ONGOING Plan of Treatment No Plan of Treatment Recorded Assessments Includes: Assessments from this encounter Findings - Localized primary osteoarthritis of right knee [M17.11 - Unilateral primary osteoarthritis, right knee] - Last Documented On 11/08/2022 9:53AM ; [facility] - Sacroiliitis [M46.1 - Sacroiliitis, not elsewhere classified] - Last Documented On 11/08/2022 9:53AM ; [facility] - Arthralgia of the right knee/patella/tibia/fibula [M25.561 - Pain in right knee] - Last Documented On 11/08/2022 9:53AM ; [facility] - Arthralgia of the left knee/patella/tibia/fibula [M25.562 - Pain in left knee] - Last Documented On 11/08/2022 9:53AM ; [facility] - 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 [M47.816 - Spondylosis without myelopathy or radiculopathy, lumbar region] - Last Documented On 11/08/2022 9:53AM ; [facility] - Chronic pain [G89.29 - Other chronic pain] - Last Documented On 11/08/2022 9:53AM ; [facility] - Myalgia [M79.10 - Myalgia, unspecified site] - Last Documented On 11/08/2022 9:53AM ; [facility] Medical Equipment - Implanted Devices Includes: Current Devices No Medical Equipment Recorded Medications Includes: Medications discussed during this encounter and other current Medications Discontinued / Stopped on this date POLLO CARPIO-BC on 08/10/2022 Celecoxib 200 MG Oral Capsule Provider: POLLO SimpsonBC Diagnosis: Dorsalgia, unspe cified Last Documented On 11/08/2022 9:24AM By Jessica GARCIA ; [facility] Current Medications (continue as prescribed) Pregabalin 150 MG Oral Capsule 05/08/2023 Provider: POLLO DANGBC Diagnosis: TAKE 1 CAPSULE BY MOUTH TWO TIMES A DAY Last Documented On 4 3:51PM By POLLO CARPIO-BC ; [facility] Celecoxib 200 MG Oral Capsule 03/14/2023 Provider: SABAS LOPEZA, RESEARCH ENGINEER-BC Diagnosis: TAKE 1 CAPSULE BY MOUTH ONCE DAILY Last Documented On 3 6:33PM By SABSA GRIFFIN RESEARCH ENGINEER-BC ; [facility] Pregabalin 150 MG Oral Capsule 01/16/2023 Provider: POLLO DANGBC Diagnosis: TAKE 1 CAPSULE BY MOUTH TWO TIMES A DAY Last Documented On 8:50AM By POLLO DANGBC ; [facility] Atorvastatin Calcium 40 MG Oral Tablet 01/04/2023 Pr ovider: DENISSE LIRIANO ANP Diagnosis: Last Documented On 01/29/2023 8:35AM By Jessica GARCIA ; [facility] Losartan Potassium 50 MG Oral Tablet 01/04/2023 Prov ider: DENISSE LIRIANO ANP Diagnosis: Last Documented On 01/29/2023 8:35AM By Jessica GARCIA ; [facility] hydroCHLOROthiazide 25 MG Oral Tablet 01/04/2023 Pro vider: DENISSE LIRIANO ANP Diagnosis: Last Documented On 01/29/2023 8:35AM By Jessica GARCIA ; [facility] Trulicity 1.5 MG/0.5ML Subcu taneous Solution Pen-injector 06/10/2022 Provider: DENISSE CARPIO Diagnosis: Last Documented On 06/15/2022 1:59PM By Jessica GARCIA ; [facility] Davonte Thompson In Vitro Strip 05/16/2022 Provider: DENISSE LIRIANO ANP Diagnosis: Last Documented On 06/15/2022 1:59PM By Jessica GARCIA ; [facility] Citalopram Hydrobromide 40 MG Oral Tablet 04/13/2022 Provider: HERI MADDEN PA-C Diagnosis: Last Documented On 06/15/2022 2:00PM By Jessica GARCIA ; [facility] Levothyroxine Sodium 112 MCG Oral Tablet 01/16/2022 Provider: HERI MADDEN PA-C Diagnosis: Last Documented On 06/15/2022 2:01PM By Jessica GARCIA ; [facility] Polyethylene Glycol 3350 17 GM/SCOOP Oral Powder 11/03/2021 Provider: SIMON SANCHEZ NP Diagnosis: Last Documented On 06/15/2022 2:02PM By Jessica GARCIA ; [facility] Medications Administered Includes: Administered Medications from this encounter No Administered Medications Recorded Vital Signs Includes: Vital Signs from this encounter Vital Name 11/08/2022 09:17A Blood Pressure Sitting L 110/80 Pulse Rate-Sitting (bpm) 88 Temp-Temporal 96.7 Height (in) 65 Weight (lb) 337 Body Mass Index 56.1 Body Surface Area 2.5 Pain Level 5 Oxygen Saturation (%) 95 Last Documented: On 11/08/2022 9:23AM ; [facility] Results Includes: Results discussed during this encounter [...] the last year since starting to the [facility]. Blood sugars are better controlled [...] PCP has recommended she start a supplement [id number]. She has not done this yet. Otherwise, [...] the last year since starting to the [facility]. Blood sugars are better controlled [...] PCP has recommended she start a supplement [id number]. She has not done this yet. Otherwise, [...] 06/15/2022 Last Documented On 3 9:16AM ; [facility] Amount of alcohol per day: Occasionally 06/15/2022 Last Documented On 3 9:16AM ; [facility] Difficulty walking 06/15/2022 Last Documented On 3 9:16AM ; [facility] Drug use 06/15/2022 Last Documented On 3 9:16AM ; [facility] Smoking packs of cigarettes per day Occa sional cigar 06/15/2022 Last Documented On 3 9:16AM ; [facility] Type: Pot occasionally 06/15/2022 Last Documented On 3 9:16AM ; [facility] Smoking Status Unknown Procedures and Surgical History Includes: Procedures from this encounter Procedures Code Diagnosis Performing Provider Service L ocation Service Date walker Last Documented On 3 9:17AM ; [facility] a standard wheelchair Last Documented On 3 9:17AM ; [facility] use of tobacco assessment performed 1000F Last Documented On 3 9:17AM ; [facility] review of medications documented 1160F Last Documented On 3 9:17AM ; [facility] screening for adult depression: impressi on and score seven Last Documented On 3 9:17AM ; [facility] standardized depression screening: posit mindy for symptoms Last Documented On 3 9:17AM ; [facility] Clinical summary provided to patient ~ Patient understands and agrees with treatment plan. 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 11/08/2022 Last Documented On 3 9:53AM ; [facility] CT/MRI Been a while 11/08/2022 Last Documented On 3 9:53AM ; [facility] Currently wearing eyeglasses 11/08/2022 Last Documented On 3 9:53AM ; [facility] Moderate to severe pain 11/08/2022 Last Documented On 3 9:53AM ; [facility] Myelogram Dont know what this is 023 Last Documented On 3 9:53AM ; [facility] NCV/EMG Dont know what this is 3 Last Documented On 3 9:53AM ; [facility] No Pain Pump 11/08/2022 Last Documented On 3 9:53AM ; [facility] No Spinal cord stimulator 11/08/2022 Last Documented On 3 9:53AM ; [facility] Other method: 11/08/2022 Last Documented On 3 9:53AM ; [facility] Physical therapy 11/08/2022 Last Documented On 3 9:53AM ; [facility] Please list all illnesses/co nditions you have been diagnosed with: Arthritis, scoliosis, degenerative disc and joint disease, ibs, depression, diabetes, morbid obesity?. not sure at the moment 11/08/2022 Last Documented On 3 9:53AM ; [facility] Please list all surgeries: C section d&c 2009vaginal 1999tonsils out, tubes in ears,gall bladder 2005endometrial ablation 2017 maybe 11/08/2022 Last Documented On 3 9:53AM ; [facility] Ultrasound Been a while 11/08/2022 Last Documented On 3 9:53AM ; [facility] Uses a cane for support 11/08/2022 Last Documented On 3 9:53AM ; [facility] X-rays Been a while 11/08/2022 Last Documented On 3 9:53AM ; [facility] Family History Includes: Family History addressed during this encounter Description Last Updated Family history of stroke/paralysis 11/08 Last Documented On 3 9:53AM ; [facility] Maternal history of stroke/paralysis Last Documented On 3 9:53AM ; [facility] Reported family history of seizures 10/18 Last Documented On 3 9:53AM ; [facility] Review of Systems Includes: Review of Systems [...] Diagnosis PAIN MANAGEMENT FOLLOW UP POLLO RANGEL ANP[facility] 11/09/19 9:15AM 9:48AM Sacroiliitis,Ost eoarthritis Localized Primary Knee Right,Chronic Pain,Arthralgia - Knee / Patella / Tibia / Fibula Right,Arthralgia - Knee / Patella / Tibia / Fibula Left,Spondylosis Without Myelopathy Or Radiculopathy Lumbar Region,Myalgia , Unspecified Cite (M79.10) Insurance Includes: Active Insurance Policies Plan Name Member ID Group # Subscriber Relationship Effect mindy Dates 1 - [facility] [id number] SABAS BURGESS Self Clinical Notes Includes: Clinical Notes from this encounter * Progress note Date Encounter Last Documented by 11/08/2022 PAIN MANAGEMENT FOLLOW UP Last d ocumented on 11/08/2022; 9:53 AM, POLLO CARPIO-; [facility] Chief Complaint The Chief [...] the last year since starting to the [facility] Blood sugars are better controlled [...] PCP has recommended she start a supplement [id number]. She has not done this yet. Otherwise, [...] the last year since starting to the [facility]. Blood sugars are better controlled [...] PCP has recommended she start a supplement [id number]. She has not done this yet. Otherwise, [...] Score: 19 Date:06/15/22 Past Medical/Surgical History Reported: wound care technician, Physical therapy, Other method:, Please list all [...] 50% of this time spent in direct [id number] counseling and coordination of care. Results of [...] but may be subject to typographical or event decorator errors. Verify all diagnoses, medications, dosages, and patient instructions with patient and/or the originator of this document. Care Team - HERI MADDEN PA-C Health Reminders - Assess BMI satisfied 11/08/2022. - Assess Tobacco Use satisfied 11/08/2022. - Depression Screening satisfied 11/08/2022.
--- OUTSIDE RECORDS SUMMARY | 2024-07-11 15:06 | XMS_ITS | Clinical Summary ---
Author Organization [facility] Address [address] [place] [address] Phone Care Team Providers Care Floorworker Distributor Name Role Phone HERI MADDEN PA-C Primary Care Provider [phone] Reason for Visit and Chief Complaint The Chief Complaint is: 3 MO FU Plan of Treatment No Plan of Treatment Recorded Assessments Includes: Assessments from this encounter Findings - Localized primary osteoarthritis of right knee [M17.11 - Unilateral primary osteoarthritis, right knee] - Last Documented On 01/29/2023 9:14AM ; [facility] - Sacroiliitis [M46.1 - Sacroiliitis, not elsewhere classified] - Last Documented On 01/29/2023 9:14AM ; [facility] - Arthralgia of the right knee/patella/tibia/fibula [M25.561 - Pain in right knee] - Last Documented On 01/29/2023 9:14AM ; [facility] - Arthralgia of the left knee/patella/tibia/fibula [M25.562 - Pain in left knee] - Last Documented On 01/29/2023 9:14AM ; [facility] - 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 [M47.816 - Spondylosis without myelopathy or radiculopathy, lumbar region] - Last Documented On 01/29/2023 9:14AM ; [facility] - Chronic pain [G89.29 - Other chronic pain] - Last Documented On 01/29/2023 9:14AM ; [facility] - Myalgia [M79.10 - Myalgia, unspecified site] - Last Documented On 01/29/2023 9:14AM ; [facility] Medical Equipment - Implanted Devices Includes: Current Devices No Medical Equipment Recorded Medications Includes: Medications discussed during this encounter and other current Medications Discontinued / Stopped on this date SABASLEON GRIFFIN APRN-REINA STENCIL INSPECTOR-BC on 11/21/2022 Pregabalin 150 MG Oral Capsule Provider: SABAS GRIFFIN DENTAL LABORATORY MANAGER- FPA STENCIL INSPECTOR-BC Diagnosis: Other chronic pa in Last Documented On 01/29/2023 8:34AM By Jessica GARCIA ; [facility] Pregabalin 150 MG Oral Capsule Provider: SABAS GRIFFIN APRN- FPA STENCIL INSPECTOR-BC Diagnosis: Other chronic pa in Last Documented On 01/29/2023 8:34AM By Jessica GARCIA ; [facility] OneTouch Verio In Vitro Strip Provider: DENISSE CARPIO Diagnosis: Last Documented On 01/29/2023 8:34AM By Jessica GARCIA ; [facility] Atenolol-Chlorthalidone 100-25 MG Oral Tablet Provider: HERI HENDRICKS-C Diagnosis: Last Documented On 01/29/2023 8:34AM By Jessica GARCIA ; [facility] Current Medications (continue as prescribed) Pregabalin 150 MG Oral Capsule 05/08/2023 Provider: POLLO DANGBC Diagnosis: TAKE 1 CAPSULE BY MOUTH TWO TIMES A DAY Last Documented On 4 3:51PM By POLLO CARPIO-BC ; [facility] Celecoxib 200 MG Oral Capsule 03/14/2023 Provider: SABAS JOSHI STENCIL INSPECTOR-BC Diagnosis: TAKE 1 CAPSULE BY MOUTH ONCE DAILY Last Documented On 3 6:33PM By SABAS OVALLE-BC ; [facility] Pregabalin 150 MG Oral Capsule 01/16/2023 Provider: POLLO DANGBC Diagnosis: TAKE 1 CAPSULE BY MOUTH TWO TIMES A DAY Last Documented On 3 8:50AM By POLLO CARPIO-BC ; [facility] Atorvastatin Calcium 40 MG Oral Tablet 01/04/2023 Pr ovider: DENISSE CARPIO Diagnosis: Last Documented On 01/29/2023 8:35AM By Jessica GARCIA ; [facility] Losartan Potassium 50 MG Oral Tablet 01/04/2023 Prov ider: DENISSE LIRIANO ANP Diagnosis: Last Documented On 01/29/2023 8:35AM By Jessica GARCIA ; [facility] hydroCHLOROthiazide 25 MG Oral Tablet 01/04/2023 Pro vider: DENISSE LIRIANO ANP Diagnosis: Last Documented On 01/29/2023 8:35AM By Jessica GARCIA ; [facility] Trulicity 1.5 MG/0.5ML Subcu taneous Solution Pen-injector 06/10/2022 Provider: DENISSE LIRIANO ANP Diagnosis: Last Documented On 06/15/2022 1:59PM By Jessica GARCIA ; [facility] OneTouch Verio In Vitro Strip 05/16/2022 Provider: DENISSE LIRIANO ANP Diagnosis: Last Documented On 06/15/2022 1:59PM By Jessica GARCIA ; [facility] Citalopram Hydrobromide 40 MG Oral Tablet 04/13/2022 Provider: HERI MADDEN PA-C Diagnosis: Last Documented On 06/15/2022 2:00PM By Jessica GARCIA ; [facility] Levothyroxine Sodium 112 MCG Oral Tablet 01/16/2022 Provider: HERI MADDEN PA-C Diagnosis: Last Documented On 06/15/2022 2:01PM By Jessica GARCIA ; [facility] Polyethylene Glycol 3350 17 GM/SCOOP Oral Powder 11/03/2021 Provider: SIMON SANCHEZ SEXUAL ASSAULT NURSE Diagnosis: Last Documented On 06/15/2022 2:02PM By Jessica GARCIA ; [facility] Medications Administered Includes: Administered Medications from this encounter No Administered Medications Recorded Vital Signs Includes: Vital Signs from this encounter Vital Name 01/29/2023 08:29A Blood Pressure Sitting R 110/80 Pulse Rate-Sitting (bpm) 98 Temp-Temporal 96.4 Height (in) 65 Weight (lb) 326 Body Mass Index 54.2 Body Surface Area 2.4 Pain Level 6 Oxygen Saturation (%) 97 Last Documented: On 01/29/2023 8:33AM ; [facility] Results Includes: Results discussed during this [...] the last year since starting to the [facility]. Blood sugars are better controlled [...] PCP has recommended she start a supplement [id number]. She has not done this yet. Otherwise, [...] the last year since starting to the [facility]. Blood sugars are better controlled [...] PCP has recommended she start a supplement [id number]-[id number]. She has not done this yet. Otherwise, [...] years. She has been more sedentary since IfOnly pandemic started and admits this has worsened [...] 01/29/2023 Last Documented On 3 9:14AM ; [facility] Alcohol 06/15/2022 Last Documented On 3 8:29AM ; [facility] Amount of alcohol per day: Occasionally 06/15/2022 Last Documented On 3 8:29AM ; [facility] Difficulty walking 06/15/2022 Last Documented On 3 8:29AM ; [facility] Drug use 06/15/2022 Last Documented On 3 8:29AM ; [facility] Smoking packs of cigarettes per day Occa sional cigar 06/15/2022 Last Documented On 3 8:29AM ; [facility] Type: Pot occasionally 06/15/2022 Last Documented On 3 8:29AM ; [facility] Smoking Status Unknown Procedures and Surgical History Includes: Procedures from this encounter Procedures Code Diagnosis Performing Provider Service L ocation Service Date walker Last Documented On 3 8:29AM ; [facility] a standard wheelchair Last Documented On 3 8:29AM ; [facility] use of tobacco assessment performed 1000F Last Documented On 3 8:36AM ; [facility] review of medications documented 1160F Last Documented On 3 8:36AM ; [facility] screening for adult depression: impressi on and score seven Last Documented On 3 8:29AM ; [facility] standardized depression screening: posit mindy for symptoms Last Documented On 3 8:29AM ; [facility] Clinical summary provided to patient ~ Patient understands and agrees with treatment plan. Questions answered Last Documented On 3 8:29AM ; [facility] SOAPP-R: total score 19 Last Documented On 3 8:29AM ; [facility] Surgical History Last Updated No Pacemaker 01/29/2023 Last Documented On 3 9:14AM ; [facility] Surgical / procedural history None 01/29 Last Documented On 3 9:14AM ; [facility] Medical History Includes: Medical History addressed during this encounter Description Last Updated live in caregiver 01/29/2023 Last Documented On 3 9:14AM ; [facility] CT/MRI Been a while 01/29/2023 Last Documented On 3 9:14AM ; [facility] Currently wearing eyeglasses 01/29/2023 Last Documented On 3 9:14AM ; [facility] Moderate to severe pain 01/29/2023 Last Documented On 3 9:14AM ; [facility] Myelogram Dont know what this is 023 Last Documented On 3 9:14AM ; [facility] NCV/EMG Dont know what this is 3 Last Documented On 3 9:14AM ; [facility] No Pain Pump 01/29/2023 Last Documented On 3 9:14AM ; [facility] No Spinal cord stimulator 01/29/2023 Last Documented On 3 9:14AM ; [facility] Other method: 01/29/2023 Last Documented On 3 9:14AM ; [facility] Physical therapy 01/29/2023 Last Documented On 3 9:14AM ; [facility] Please list all illnesses/co nditions you have been diagnosed with: Arthritis, scoliosis, degenerative disc and joint disease, ibs, depression, diabetes, morbid obesity?. not sure at the moment 01/29/2023 Last Documented On 3 9:14AM ; [facility] Please list all surgeries: C section 1993/2011d&c 2009vaginal 1999tonsils out, tubes in ears,gall bladder 2005endometrial ablation 2017 maybe 01/29/2023 Last Documented On 3 9:14AM ; [facility] Ultrasound Been a while 01/29/2023 Last Documented On 3 9:14AM ; [facility] Uses a cane for support 01/29/2023 Last Documented On 3 9:14AM ; [facility] X-rays Been a while 01/29/2023 Last Documented On 3 9:14AM ; [facility] Family History Includes: Family History addressed during this encounter Description Last Updated Family history of stroke/paralysis 01/29 Last Documented On 3 9:14AM ; [facility] Maternal history of stroke/paralysis Last Documented On 3 9:14AM ; [facility] Reported family history of seizures 01/17 Last Documented On 3 9:14AM ; [facility] Review of Systems Includes: Review of [...] Diagnosis PAIN MANAGEMENT FOLLOW UP POLLO RANGEL [facility] 01/30/20 23 8:20AM 9:01AM Sacroiliitis,Ost eoarthritis Localized Primary Knee Right,Chronic Pain,Arthralgia - Knee / Patella / Tibia / Fibula Right,Arthralgia - Knee / Patella / Tibia / Fibula Left,Spondylosis Without Myelopathy Or Radiculopathy Lumbar Region,Myalgia , Unspecified Cite (M79.10) Insurance Includes: Active Insurance Policies Plan Name Member ID Group # Subscriber Relationship Effect mindy Dates - [facility] [id number] SABAS BURGESS Self Clinical Notes Includes: Clinical Notes from this encounter * Progress note Date Encounter Last Documented by 01/29/2023 PAIN MANAGEMENT FOLLOW UP Last d ocumented on 01/29/2023; 9:14 AM, POLLO RANGEL ANP-; [facility] Chief Complaint The [...] the last year since starting to the [facility]. Blood sugars are better controlled [...] PCP has recommended she start a supplement [id number]-[id number]. She has not done this yet. Otherwise, [...] the last year since starting to the [facility]. Blood sugars are better controlled [...] PCP has recommended she start a supplement paqj-emp-[id number]. She has not done this yet. Otherwise, [...] Score: 19 Date:06/15/22 Past Medical/Surgical History Reported: live in caregiver, Physical therapy, Other method:, Please list all [...] but may be subject to typographical or card assembler errors. Verify all diagnoses, medications, dosages, and patient instructions with patient and/or the originator of this document. Care Team - HERI MADDEN PA-C Health Reminders - Assess BMI satisfied 01/29/2023. - Assess Tobacco Use satisfied 01/29/2023. - Depression Screening satisfied 01/29/2023.
[2024-07-11 15:07] VITALS: BP 109/65; PULSE 100; RESP 16; TEMP 36.6; O2SAT 99
--- OUTSIDE RECORDS SUMMARY | 2024-07-11 15:07 | XMS_ITS ---
Author Organization [facility] Address [address] [place] [address] Phone Care Team Providers Care Hand Turner Name Role Phone HERI MADDEN PA-C Primary Care Provider [phone] Plan of Treatment No Plan of Treatment Recorded Assessments Includes: Assessments for all patient encounters Findings Encounter Date Arthralgia of the left knee/patella/tibia/fibula PAIN MANAGEMENT FOLLOW UP with POLLO L JUAN CARLOS ANP-BC 01/29/2023 Last Documented On 3 9:14AM ; [facility] Arthralgia of the right knee/patella/tibia/fibula PAIN MANAGEMENT FOLLOW UP with POLLO L JUAN CARLOS ANP-BC 01/29/2023 Last Documented On 3 9:14AM ; [facility] Chronic pain PAIN MANAGEMENT FOLLOW UP with T MIRIAM L JUAN CARLOS ANP-BC 01/29/2023 Last Documented On 3 9:14AM ; [facility] Localized primary osteoarthr itis of right knee PAIN MANAGEMENT FOLLOW UP with POLLO L JUAN CARLOS ANP-BC 01/29/2023 Last Documented On 3 9:14AM ; [facility] Lumbar spondylosis without m yelopathy or radiculopathy PAIN MANAGEMENT FOLLOW UP with POLLO L JUAN CARLOS ANP-BC 01/29/2023 Last Documented On 3 9:14AM ; [facility] Myalgia PAIN MANAGEMENT FOLLOW UP with T MIRIAM L JUAN CARLOS ANP-BC 01/29/2023 Last Documented On 3 9:14AM ; [facility] Sacroiliitis PAIN MANAGEMENT FOLLOW UP with T MIRIAM L JUAN CARLOS ANP-BC 01/29/2023 Last Documented On 3 9:14AM ; [facility] Arthralgia of the left knee/patella/tibia/fibula PAIN MANAGEMENT FOLLOW UP with POLLO L JUAN CARLOS ANP-BC 11/08/2022 Last Documented On 3 9:53AM ; [facility] Arthralgia of the right knee/patella/tibia/fibula PAIN MANAGEMENT FOLLOW UP with POLLO L JUAN CARLOS ANP-BC 11/08/2022 Last Documented On 3 9:53AM ; [facility] Chronic pain PAIN MANAGEMENT FOLLOW UP with T MIRIAM L JUAN CARLOS ANP-BC 11/08/2022 Last Documented On 3 9:53AM ; [facility] Localized primary osteoarthr itis of right knee PAIN MANAGEMENT FOLLOW UP with POLLO L JUAN CARLOS ANP-BC 11/08/2022 Last Documented On 3 9:53AM ; [facility] Lumbar spondylosis without m yelopathy or radiculopathy PAIN MANAGEMENT FOLLOW UP with POLLO L JUAN CARLOS ANP-BC 11/08/2022 Last Documented On 3 9:53AM ; [facility] Myalgia PAIN MANAGEMENT FOLLOW UP with T MIRIAM L JUAN CARLOS ANP-BC 11/08/2022 Last Documented On 3 9:53AM ; [facility] Sacroiliitis PAIN MANAGEMENT FOLLOW UP with T MIRIAM L JUAN CARLOS ANP-BC 11/08/2022 Last Documented On 3 9:53AM ; [facility] Arthralgia of the left knee/patella/tibia/fibula INJECTION with SHERRY GIBBS MD 10/18/2022 Last Documented On 3 5:48PM ; [facility] Arthralgia of the right knee/patella/tibia/fibula INJECTION with SHERRY GIBBS MD 10/18/2022 Last Documented On 3 5:48PM ; [facility] Osteoarthritis of both knees INJECTION with SHAN GIBBS MD 10/18/2022 Last Documented On 3 5:48PM ; [facility] Osteoarthritis of both knees * PHONE CALL with T MIRIAM L JUAN CARLOS ANP-BC 09/27/2022 Last Documented On 3 3:29PM ; [facility] Arthralgia of the left knee/patella/tibia/fibula PAIN MANAGEMENT FOLLOW UP with POLLO L JUAN CARLOS ANP-BC 09/11/2022 Last Documented On 3 10:30AM ; [facility] Arthralgia of the right knee/patella/tibia/fibula PAIN MANAGEMENT FOLLOW UP with POLLO L JUAN CARLOS ANP-BC 09/11/2022 Last Documented On 3 10:30AM ; [facility] Chronic pain PAIN MANAGEMENT FOLLOW UP with T MIRIAM L JUAN CARLOS ANP-BC 09/11/2022 Last Documented On 3 10:30AM ; [facility] Fatigue PAIN MANAGEMENT FOLLOW UP with T MIRIAM L JUAN CARLOS ANP-BC 09/11/2022 Last Documented On 3 10:30AM ; [facility] Localized primary osteoarthr itis of right knee PAIN MANAGEMENT FOLLOW UP with POLLO L JUAN CARLOS ANP-BC 09/11/2022 Last Documented On 3 10:30AM ; [facility] Lumbar spondylosis without m yelopathy or radiculopathy PAIN MANAGEMENT FOLLOW UP with POLLO L JUAN CARLOS ANP-BC 09/11/2022 Last Documented On 3 10:30AM ; [facility] Myalgia PAIN MANAGEMENT FOLLOW UP with T MIRIAM L JUAN CARLOS ANP-BC 09/11/2022 Last Documented On 3 10:30AM ; [facility] Sacroiliitis PAIN MANAGEMENT FOLLOW UP with T MIRIAM L JUAN CARLOS ANP-BC 09/11/2022 Last Documented On 3 10:30AM ; [facility] Arthralgia of the left knee/patella/tibia/fibula PAIN MANAGEMENT FOLLOW UP with POLLO L JUAN CARLOS ANP-BC 08/10/2022 Last Documented On 3 9:12AM ; [facility] Arthralgia of the right knee/patella/tibia/fibula PAIN MANAGEMENT FOLLOW UP with POLLO L JUAN CARLOS ANP-BC 08/10/2022 Last Documented On 3 9:12AM ; [facility] Chronic pain PAIN MANAGEMENT FOLLOW UP with T MIRIAM L JUAN CARLOS ANP-BC 08/10/2022 Last Documented On 3 9:12AM ; [facility] Fatigue PAIN MANAGEMENT FOLLOW UP with T MIRIAM L JUAN CARLOS ANP-BC 08/10/2022 Last Documented On 3 9:12AM ; [facility] Localized primary osteoarthr itis of right knee PAIN MANAGEMENT FOLLOW UP with POLLO L JUAN CARLOS ANP-BC 08/10/2022 Last Documented On 3 9:12AM ; [facility] Lumbar spondylosis without m yelopathy or radiculopathy PAIN MANAGEMENT FOLLOW UP with POLLO L JUAN CARLOS ANP-BC 08/10/2022 Last Documented On 3 9:12AM ; [facility] Myalgia PAIN MANAGEMENT FOLLOW UP with T MIRIAM L JUAN CARLOS ANP-BC 08/10/2022 Last Documented On 3 9:12AM ; [facility] Sacroiliitis PAIN MANAGEMENT FOLLOW UP with T MIRIAM L JUAN CARLOS ANP-BC 08/10/2022 Last Documented On 3 9:12AM ; [facility] Arthralgia of the left knee/patella/tibia/fibula PAIN MANAGEMENT NEW CONSULT with POLLO L JUAN CARLOS ANP-BC 06/15/2022 Last Documented On 3 2:40PM ; [facility] Arthralgia of the right knee/patella/tibia/fibula PAIN MANAGEMENT NEW CONSULT with POLLO L JUAN CARLOS ANP-BC 06/15/2022 Last Documented On 3 2:40PM ; [facility] DORSALGIA PAIN MANAGEMENT NEW CONSULT with POLLO L JUAN CARLOS ANP-BC 06/15/2022 Last Documented On 3 2:40PM ; [facility] Myalgia PAIN MANAGEMENT NEW CONSULT with POLLO L JUAN CARLOS ANP-BC 06/15/2022 Last Documented On 3 2:40PM ; [facility] Sacroiliitis PAIN MANAGEMENT NEW CONSULT with POLLO L JUAN CARLOS ANP-BC 06/15/2022 Last Documented On 3 2:40PM ; [facility] Medical Equipment - Implanted Devices Includes: Current and historical Devices No Medical Equipment Recorded Medications Includes: Current and historical Medications Current Medications (continue as prescribed) Pregabalin 150 MG Oral Capsule 05/08/2023 Provider: POLLO KERNS Diagnosis: TAKE 1 CAPSULE BY MOUTH TWO TIMES A DAY Last Documented On 4 3:51PM By POLLO KERNS ; [facility] Celecoxib 200 MG Oral Capsule 03/14/2023 Provider: SABAS GRIFFIN APRN-FPAAMARABC Diagnosis: TAKE 1 CAPSULE BY MOUTH ONCE DAILY Last Documented On 3 6:33PM By SABAS OVALLE- ; [facility] Pregabalin 150 MG Oral Capsule 01/16/2023 Provider: POLLO KERNS Diagnosis: TAKE 1 CAPSULE BY MOUTH TWO TIMES A DAY Last Documented On 3 8:50AM By POLLO KERNS ; [facility] Atorvastatin Calcium 40 MG Oral Tablet 01/04/2023 Pr ovider: DENISSE LIRIANO ANP Diagnosis: Last Documented On 01/29/2023 8:35AM By Jessica GARCIA ; [facility] Losartan Potassium 50 MG Oral Tablet 01/04/2023 Prov ider: DENISSE LIRIANO ANP Diagnosis: Last Documented On 01/29/2023 8:35AM By Jessica GARCAI ; [facility] hydroCHLOROthiazide 25 MG Oral Tablet 01/04/2023 Pro vider: DENISSE LIRIANO ANP Diagnosis: Last Documented On 01/29/2023 8:35AM By Jessica GARCIA ; [facility] Trulicity 1.5 MG/0.5ML Subcu taneous Solution Pen-injector 06/10/2022 Provider: DENISSE LIRIANO ANP Diagnosis: Last Documented On 06/15/2022 1:59PM By Jessica GARCIA ; [facility] OneTouch Verio In Vitro Strip 05/16/2022 Provider: DENISSE LIRIANO ANP Diagnosis: Last Documented On 06/15/2022 1:59PM By Jessica GARCIA ; [facility] Citalopram Hydrobromide 40 MG Oral Tablet 04/13/2022 Provider: HERI MADDEN PA-C Diagnosis: Last Documented On 06/15/2022 2:00PM By Jessica GARCIA ; [facility] Levothyroxine Sodium 112 MCG Oral Tablet 01/16/2022 Provider: HERI MADDEN PA-C Diagnosis: Last Documented On 06/15/2022 2:01PM By Jessica GARCIA ; [facility] Polyethylene Glycol 3350 17 GM/SCOOP Oral Powder 11/03/2021 Provider: SIMON SANCHEZ NP Diagnosis: Last Documented On 06/15/2022 2:02PM By Jessica GARCIA ; [facility] Past Medications on file Celecoxib 200 MG Oral Capsule 01/02/2023 - 03/14/2023 Provider: POLLO RANGEL ANP-BC Diagnosis: TAKE 1 CAPSULE BY MOUTH ONCE DAILY Last Documented On 3 6:25PM By SABAS GRIFFIN SOLAR MANAGER-BC ; [facility] Celecoxib 200 MG Oral Capsule 11/21/2022 - 01/02/2023 Provider: SABAS Hodge PRN-FPA, SOLAR MANAGER-BC Diagnosis: TAKE 1 CAPSULE BY MOUTH ONCE DAILY Last Documented On 3 3:49PM By POLLO RANGEL ANP-BC ; [facility] Pregabalin 150 MG Oral Capsule 11/21/2022 - 01/29/2023 Provider: SABAS GRIFFIN GAMMA RAY OPERATOR-FPA, SOLAR MANAGER-BC Diagnosis: Other chronic pa in TAKE 1 CAPSULE BY MOUTH TWO TIMES A DAY Last Documented On 01/29/2023 8:34AM By Jessica GARCIA ; [facility] Pregabalin 150 MG Oral Capsule 11/21/2022 - 01/29/2023 Provider: SABAS GRIFFIN APRN-FPA, SOLAR MANAGER-BC Diagnosis: Other chronic pa in TAKE 1 CAPSULE BY MOUTH TWO TIMES A DAY Last Documented On 01/29/2023 8:34AM By Jessica GARCIA ; [facility] Celecoxib 200 MG Oral Capsule 11/01/2022 - 11/21/2022 Provider: POLLO DANGBC Diagnosis: TAKE 1 CAPSULE BY MOUTH ONCE DAILY Last Documented On 3 12:27PM By SABAS GRIFFIN [facility] ; [facility] Celecoxib 200 MG Oral Capsule 10/02/2022 - 11/01/2022 Provider: POLLO CARPIO-BC Diagnosis: TAKE 1 CAPSULE BY MOUTH ONCE DAILY Last Documented On 3 8:42AM By POLLO DANG ; [facility] Pregabalin 150 MG Oral Capsule 09/11/2022 - 11/21/2022 Provider: POLLO RANGEL ANP-BC Diagnosis: Other chronic pa in 1 CAPSULE TWO TIMES A DAY Last Documented On 3 12:27PM By SABAS GRIFFIN [facility] ; [facility] Celecoxib 200 MG Oral Capsule 08/10/2022 - 11/08/2022 Provider: POLLO CARPIO-BC Diagnosis: Dorsalgia, unspe cified 1 capsule daily Last Documented On 11/08/2022 9:24AM By Jessica GARCIA ; [facility] Pregabalin 75 MG Oral Capsule 08/10/2022 - 09/11/2022 Provider: POLLO DANGBC Diagnosis: Other chronic pa in 1 CAPSULE TWO TIMES A DAY Last Documented On 09/11/2022 9:32AM By Jessica GARCIA ; [facility] Pregabalin 150 MG Oral Capsule 08/10/2022 - 09/11/2022 Provider: POLLO CARPIO-BC Diagnosis: Other chronic pa in 1 CAPSULE TWO TIMES A DAYsta rt after complete 75mg titration Last Documented On 3 10:02AM By POLLO DANG ; [facility] Celecoxib 200 MG Oral Capsule 06/15/2022 - 08/10/2022 Provider: POLLO DANGBC Diagnosis: Dorsalgia, unspe cified 1 capsule daily Last Documented On 3 9:02AM By POLLO DANG ; [facility] Lidocaine 5% External Patch 06/15/2022 - 08/10/2022 Provider: POLLO L JUAN CARLOS ANP-BC Diagnosis: Dorsalgia, unspe cified as directed apply patch to a ffected area for 12 hours and remove for 12 hours Last Documented On 08/10/2022 8:35AM By Jessica GARCIA ; [facility] Davonte Thompson In Vitro Strip 05/16/2022 - 01/29/2023 Provider: DENISSE CARPIO Diagnosis: Last Documented On 01/29/2023 8:34AM By Jessica GARCIA ; [facility] Famotidine 40 MG Oral Tablet 05/03/2022 - 06/15/2022 P rovider: HERI MADDEN PA-C Diagnosis: Last Documented On 06/15/2022 2:00PM By Jessica GARCIA ; [facility] Atenolol-Chlorthalidone 100- 25 MG Oral Tablet 04/13/2022 - 01/29/2023 Provider: HERI MADDEN PA-C Diagnosis: Last Documented On 01/29/2023 8:34AM By Jessica GARCIA ; [facility] Meloxicam 15 MG Oral Tablet 04/13/2022 - 08/10/2022 Pr ovider: HERI MADDEN PA-C Diagnosis: Last Documented On 08/10/2022 8:35AM By Jessica GARCIA ; [facility] Medications Administered Includes: Administered Medications in patient's chart Medications Administered Diagnosis Date Pro vider Xylocaine 1% IJ SOLN 10/18/2022 SHERRY GIBBS MD administered by Dr. Gibbs for local Last Documented On 3 11:38AM By Jazzy Smith RN ; [facility] Sensorcaine-MPF 0.5% IJ SOLN 10/18/2022 SHERRY GIBBS MD administered by Dr. Gibbs in both knees Last Documented On 3 11:44AM By Jazzy Smith RN ; [facility] Kenalog 40 MG/ML IJ SUSP 10/18/2022 REAL GIBBS MD administered by Dr. Gibbs in left knee Last Documented On 3 11:42AM By Jazzy Smith RN ; [facility] Kenalog 40 MG/ML IJ SUSP 10/18/2022 REAL GIBBS MD administered by Dr. Gibbs in right knee Last Documented On 3 11:42AM By Jazzy Smith RN ; [facility] Sodium Chloride 0.9% IV SOLN 10/18/2022 SHERRY GIBBS MD administered by Dr. Gibbs for [facility] Last Documented On 3 11:40AM By Jazzy Smith RN ; [facility] Results Includes: Results from 07/12/2023 through 07/11/2024 No Results Recorded For Specified Dates History of Present Illness History of Present Illness not supported for this document type No History of Present Illness Recorded Social History Description Last Updated Tobacco non-user 01/29/2023 Last Documented On 3 9:14AM ; [facility] Alcohol 06/15/2022 Last Documented On 3 2:40PM ; [facility] Amount of alcohol per day: Occasionally 06/15/2022 Last Documented On 3 2:40PM ; [facility] Difficulty walking 06/15/2022 Last Documented On 3 2:40PM ; [facility] Drug use 06/15/2022 Last Documented On 3 2:40PM ; [facility] Smoking packs of cigarettes per day Occa sional cigar 06/15/2022 Last Documented On 3 2:40PM ; [facility] Type: Pot occasionally 06/15/2022 Last Documented On 3 2:40PM ; [facility] Smoking Status Unknown Procedures and Surgical History Surgical History Last Updated No Pacemaker 01/29/2023 Last Documented On 3 9:14AM ; [facility] Surgical / procedural history None 01/29 Last Documented On 3 9:14AM ; [facility] Medical History Includes: Medical History in patient's chart Description 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 Last Documented On 3 9:14AM ; [facility] CT/MRI Been a while 01/29/2023 Last Documented On 3 9:14AM ; [facility] Currently wearing eyeglasses 01/29/2023 Last Documented On 3 9:14AM ; [facility] Moderate to severe pain 01/29/2023 Last Documented On 3 9:14AM ; [facility] Myelogram Dont know what this is 023 Last Documented On 3 9:14AM ; [facility] NCV/EMG Dont know what this is 3 Last Documented On 3 9:14AM ; [facility] No Pain Pump 01/29/2023 Last Documented On 3 9:14AM ; [facility] No Spinal cord stimulator 01/29/2023 Last Documented On 3 9:14AM ; [facility] Other method: 01/29/2023 Last Documented On 3 9:14AM ; [facility] Physical therapy 01/29/2023 Last Documented On 3 9:14AM ; [facility] Please list all illnesses/co nditions you have been diagnosed with: Arthritis, scoliosis, degenerative disc and joint disease, ibs, depression, diabetes, morbid obesity?. not sure at the moment 01/29/2023 Last Documented On 3 9:14AM ; [facility] Please list all surgeries: C section 1993/2011d&c 2009vaginal 1999tonsils out, tubes in ears,gall bladder 2005endometrial ablation 2017 maybe 01/29/2023 Last Documented On 3 9:14AM ; [facility] Ultrasound Been a while 01/29/2023 Last Documented On 3 9:14AM ; [facility] Uses a cane for support 01/29/2023 Last Documented On 3 9:14AM ; [facility] X-rays Been a while 01/29/2023 Last Documented On 3 9:14AM ; [facility] Family History Includes: Family History in patient's chart Description Last Updated Family history of stroke/paralysis 01/29 Last Documented On 3 9:14AM ; [facility] Maternal history of stroke/paralysis Last Documented On 3 9:14AM ; [facility] Reported family history of seizures 01/17 Last Documented On 3 9:14AM ; [facility] Review of Systems Review [...] Subscriber Relationship Effect mindy Dates 1 - [facility] [id number] SABAS BURGESS Self Clinical Notes Includes: Signed Clinical Notes starting from 04/07/2022 No Clinical Notes Recorded
--- OUTSIDE RECORDS SUMMARY | 2024-07-11 15:07 | XMS_ITS | Clinical Summary ---
Author Organization [facility] Address [address] [place] [address] Phone Care Team Providers Care Sample Examiner Name Role Phone HERI MADDEN PA-C Primary Care Provider [phone] Reason for Visit and Chief Complaint The Chief Complaint is: Pt. here today for bilateral knee joint aspiration and steroid injection under ultrasound guidance Plan of Treatment No Plan of Treatment Recorded Assessments Includes: Assessments from this encounter Findings - [M17.0 - Bilateral primary osteoarthritis of knee] Osteoarthritis of both knees - Last Documented On 10/18/2022 5:48PM ; [facility] - [M25.561 - Pain in right knee] Arthralgia of the right knee/patella/tibia/fibula - Last Documented On 10/18/2022 5:48PM ; [facility] - [M25.562 - Pain in left knee] Arthralgia of the left knee/patella/tibia/fibula - Last Documented On 10/18/2022 5:48PM ; [facility] Medical Equipment - Implanted Devices Includes: Current Devices No Medical Equipment Recorded Medications Includes: Medications discussed during this encounter and other current Medications Current Medications (continue as prescribed) Pregabalin 150 MG Oral Capsule 05/08/2023 Provider: POLLO DANGBC Diagnosis: TAKE 1 CAPSULE BY MOUTH TWO TIMES A DAY Last Documented On 4 3:51PM By POLLO DANGBC ; [facility] Celecoxib 200 MG Oral Capsule 03/14/2023 Provider: SABAS GRIFFIN COMPLETIONS MANAGER-FPA, WALKING DRAGLINE OILER-BC Diagnosis: TAKE 1 CAPSULE BY MOUTH ONCE DAILY Last Documented On 6:33PM By SABAS GRIFFIN WALKING DRAGLINE OILER-BC ; [facility] Pregabalin 150 MG Oral Capsule 01/16/2023 Provider: POLLO CARPIO-BC Diagnosis: TAKE 1 CAPSULE BY MOUTH TWO TIMES A DAY Last Documented On 8:50AM By POLLO CARPIO-BC ; [facility] Atorvastatin Calcium 40 MG Oral Tablet 01/04/2023 Pr ovider: DENISSE LIRIANO ANP Diagnosis: Last Documented On 01/29/2023 8:35AM By Jessica GARCIA ; [facility] Losartan Potassium 50 MG Oral Tablet 01/04/2023 Prov ider: DENISSE LIRIANO ANP Diagnosis: Last Documented On 01/29/2023 8:35AM By Jessica GARCIA ; [facility] hydroCHLOROthiazide 25 MG Oral Tablet 01/04/2023 Pro vider: DENISSE LIRIANO ANP Diagnosis: Last Documented On 01/29/2023 8:35AM By Jessica GARCIA ; [facility] Trulicity 1.5 MG/0.5ML Subcu taneous Solution Pen-injector 06/10/2022 Provider: DENISSE LIRIANO ANP Diagnosis: Last Documented On 06/15/2022 1:59PM By Jessica GARCIA ; [facility] OneTouch Verio In Vitro Strip 05/16/2022 Provider: DENISSE LIRIANO ANP Diagnosis: Last Documented On 06/15/2022 1:59PM By Jessica GARCIA ; [facility] Citalopram Hydrobromide 40 MG Oral Tablet 04/13/2022 Provider: HERI MADDEN PA-C Diagnosis: Last Documented On 06/15/2022 2:00PM By Jessica GARCIA ; [facility] Levothyroxine Sodium 112 MCG Oral Tablet 01/16/2022 Provider: HERI MADDEN PA-C Diagnosis: Last Documented On 06/15/2022 2:01PM By Jessica GARCIA ; [facility] Polyethylene Glycol 3350 17 GM/SCOOP Oral Powder 11/03/2021 Provider: SIMON SANCHEZ EXPLORATION GEOLOGIST Diagnosis: Last Documented On 06/15/2022 2:02PM By Jessica GARCIA ; [facility] Medications Administered Includes: Administered Medications from this encounter Medications Administered Diagnosis Date Pro vider Xylocaine 1% IJ SOLN 10/18/2022 SHERRY GIBBS MD administered by Dr. Gibbs for local Last Documented On 3 11:38AM By Jazzy Smith RN ; [facility] Sensorcaine-MPF 0.5% IJ SOLN 10/18/2022 SHERRY GIBBS MD administered by Dr. Gibbs in both knees Last Documented On 3 11:44AM By Jazzy Smith RN ; [facility] Kenalog 40 MG/ML IJ SUSP 10/18/2022 REAL GIBBS MD administered by Dr. Gibbs in left knee Last Documented On 3 11:42AM By Jazzy Smith RN ; [facility] Kenalog 40 MG/ML IJ SUSP 10/18/2022 REAL GIBBS MD administered by Dr. Gibbs in right knee Last Documented On 3 11:42AM By Jazzy Smith RN ; [facility] Sodium Chloride 0.9% IV SOLN 10/18/2022 SHERRY GIBBS MD administered by Dr. Gibbs for local Last Documented On 3 11:40AM By Jazzy Smith RN ; [facility] Vital Signs Includes: Vital Signs from this encounter Vital Name 10/18/2022 10:06A Blood Pressure Sitting L 109/65 BP Cuff Size Regular Pulse Rate-Sitting (bpm) 82 Pulse Rhythm Regular Height (in) 65 Weight (lb) 340 Body Mass Index 56.6 Body Surface Area 2.5 Pain Level 5 Oxygen Saturation (%) 95 Last Documented: On 10/18/2022 10:12A M ; [facility] Results Includes: Results discussed during this encounter No Results Recorded For Specified Dates History of Present Illness Includes: History of Present Illness from this encounter MONSTER BURGESS is a 47 year old female. - Allergy list reviewed - Medication list reviewed Social History Description Last Updated Alcohol 06/15/2022 Last Documented On 3 10:04AM ; [facility] Amount of alcohol per day: Occasionally 06/15/2022 Last Documented On 3 10:04AM ; [facility] Difficulty walking 06/15/2022 Last Documented On 3 10:04AM ; [facility] Drug use 06/15/2022 Last Documented On 3 10:04AM ; [facility] Smoking packs of cigarettes per day Occa sional cigar 06/15/2022 Last Documented On 3 10:04AM ; [facility] Type: Pot occasionally 06/15/2022 Last Documented On 3 10:04AM ; [facility] Smoking Status Unknown Procedures and Surgical History Includes: Procedures from this encounter Procedures Code Diagnosis Performing Provider Service L ocation Service Date review of medications documented 1160F Last Documented On 3 10:06AM ; [facility] Surgical History Last Updated No Pacemaker 01/29/2023 Last Documented On 3 10:04AM ; [facility] Surgical / procedural history None 01/29 Last Documented On 3 10:04AM ; [facility] Medical History Includes: Medical History addressed during this encounter Description 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 Last Documented On 3 10:04AM ; [facility] CT/MRI Been a while 01/29/2023 Last Documented On 3 10:04AM ; [facility] Currently wearing eyeglasses 01/29/2023 Last Documented On 3 10:04AM ; [facility] Moderate to severe pain 01/29/2023 Last Documented On 3 10:04AM ; [facility] Myelogram Dont know what this is 023 Last Documented On 3 10:04AM ; [facility] NCV/EMG Dont know what this is 3 Last Documented On 3 10:04AM ; [facility] No Pain Pump 01/29/2023 Last Documented On 3 10:04AM ; [facility] No Spinal cord stimulator 01/29/2023 Last Documented On 3 10:04AM ; [facility] Other method: 01/29/2023 Last Documented On 3 10:04AM ; [facility] Physical therapy 01/29/2023 Last Documented On 3 10:04AM ; [facility] Please list all illnesses/co nditions you have been diagnosed with: Arthritis, scoliosis, degenerative disc and joint disease, ibs, depression, diabetes, morbid obesity?. not sure at the moment 01/29/2023 Last Documented On 3 10:04AM ; [facility] Please list all surgeries: C section 1993/2011d&c 2009vaginal 1999tonsils out, tubes in ears,gall bladder 2005endometrial ablation 2017 maybe 01/29/2023 Last Documented On 3 10:04AM ; [facility] Ultrasound Been a while 01/29/2023 Last Documented On 3 10:04AM ; [facility] Uses a cane for support 01/29/2023 Last Documented On 3 10:04AM ; [facility] X-rays Been a while 01/29/2023 Last Documented On 3 10:04AM ; [facility] Family History Includes: Family History addressed during this encounter Description Last Updated Family history of stroke/paralysis 01/29 Last Documented On 3 10:04AM ; [facility] Maternal history of stroke/paralysis Last Documented On 3 10:04AM ; [facility] Reported family history of seizures 01/17 Last Documented On 3 10:04AM ; [facility] Review of Systems Includes: Review of Systems [...] Out Time Diagnosis INJECTION SHERRY GIBBS MD [facility] 3 10:00AM 10:51AM Arthralgia - Knee / Patella / Tibia / Fibula Right,Arthralg ia - Knee / Patella / Tibia / Fibula Left,Osteoarth ritis Knees Both Insurance Includes: Active Insurance Policies Plan Name Member ID Group # Subscriber Relationship Effect mindy Dates - [facility] [id number] SABAS BURGESS Self Clinical Notes Includes: Clinical Notes from this encounter * Progress note Date Encounter Last Documented by 10/18/2022 INJECTION Last documented on 10/18/2022; 5:48 PM, SHERRY GIBBS MD; [facility] Chief Complaint The Chief Complaint [...] days, 0 refills Past Medical/Surgical History Reported: 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
--- NOTE | 2024-07-11 15:14 | ED_ITS ---
HPI - URI/Sore Throat General Chief Complaint: Upper Respiratory Infection Stated Complaint: sore throat Time Seen by Provider: 07/11/24 15:10 Source: patient Mode of arrival: ambulatory Limitations: no limitations History of Present Illness HPI Narrative: Della is a 49-year-old female patient presenting to the clinic today with complaints of sore throat times 3 days. She reports her symptoms started on Sunday. Reports a burning sensation in her throat. Denies any URI symptoms otherwise. No fevers, chills, body aches. Related Data Home Medications ?Medication ?Instructions ?Recorded ?Confirmed ?Last Taken ?Type celecoxib 200 mg capsule (Celebrex) 200 mg PO DAILY 10/24/22 10/31/23 Unknown History citalopram 40 mg tablet 40 mg PO DAILY 10/24/22 10/31/23 Unknown History levothyroxine 112 mcg tablet 112 mcg PO DAILY 10/24/22 10/31/23 Unknown History polyethylene glycol 3350 17 17 g PO DAILY 10/24/22 10/31/23 Unknown History gram/dose oral powder (Miralax) pregabalin 150 mg capsule 150 mg PO BID 10/24/22 10/31/23 Unknown History atorvastatin 40 mg tablet mg PO 10/31/23 10/31/23 Unknown History dulaglutide 4.5 mg/0.5 mL mg subcut 10/31/23 10/31/23 Unknown History subcutaneous pen injector (Trulicity) hydrochlorothiazide 25 mg tablet mg PO 10/31/23 10/31/23 Unknown History losartan 50 mg tablet mg PO 10/31/23 10/31/23 Unknown History Allergies Allergy/AdvReac Type Severity Reaction Status Date / Time No Known Allergies Allergy Verified 07/11/24 15:20 Review of Systems Review of Systems: Pertinent positives per HPI. Patient denies any fever, chills, rash, headache, visual changes, dizziness, cough, shortness of breath, chest pain, palpitations, nausea, vomiting, diarrhea, constipation, abdominal pain, or any urinary issues. PMFSH Past Medical History Medical History Joint pain seeing pain management Depression Diabetes Hypertension Hypothyroidism Screening mammogram, encounter for Surgical History Surgical History H/O tubal ligation (~2011) History of hysteroscopy suction D&C missed AB Delivery by section Hx of cholecystectomy History of tonsillectomy History of gynecological procedure (03/29/17) D&C Novasure Ablation Family History Family History Mother Diabetes mellitus Hypertension Grandparent Cerebrovascular accident paternal grandparent Social History Social History Smoking status: Never smoker Alcohol intake: never Substance use type: marijuana Other substance usage details: gummies ocassional Lack of Transportation: No Lack of Food: Never True Current Housing: I Have Housing Concerned About Future Housing: No Difficulty Paying Gas/Electric Bills: No Difficulty Paying for Meds: No Currently Unemployed: No Education: High School Diploma/GED Difficulty w/ Childcare or Family Care: No Living arrangements: other Additional living arrangements comments: Occupation/Education: unemployed Gender identity (if verbalized by the patient): Female Sexual Orientation (if Verbalized by the Patient): Straight or Heterosexual Comments At the time of my signature, I reviewed and agree with the nursing past medical, surgical, social, and family history. There is no relevant family history pertinent to the patient complaint. Exam Narrative: General: Well-developed, well nourished, in no apparent distress Head: Normocephalic, atraumatic Eyes: Pupils equally round and reactive to light bilaterally, EOM intact, sclera and conjunctive clear, no discharge, lids normal Ears: TMs intact and clear, ear canals clear, no drainage, grossly hearing normal. Nose: Nares patent, no discharge, no inflammation, no sinus tenderness. Mouth: Oral pharynx beffy red oral pharynx with white plaque-like lesions appearing to be Lorin, good dentition, MMM. Neck: Supple, trachea midline, no enlargement of anterior or posterior cervical nodes, no thyroid masses or goiter palpable. Cardio: Regular rate and rhythm, s1 and s2 normal, no murmur appreciated. Resp: Clear to auscultation bilaterally, no rhonchi, rales, wheezing or rubs Course Course Emergency Course: Portions of this record may have been created with voice recognition software. Level of Care: Express Care Visit Vital Signs Vital signs: Vital Signs Temperature 36.6 C 07/11/24 15:07 Pulse Rate 100 07/11/24 15:07 Respiratory Rate 16 07/11/24 15:07 Blood Pressure 109/65 07/11/24 15:07 Pulse Oximetry 99 07/11/24 15:07 Oxygen Delivery Room Air 07/11/24 15:07 Temperature 36.6 C 07/11/24 15:07 Pulse Rate 100 07/11/24 15:07 Respiratory Rate 16 07/11/24 15:07 Blood Pressure 109/65 07/11/24 15:07 Pulse Oximetry 99 07/11/24 15:07 Oxygen Delivery Room Air 07/11/24 15:07 Vital signs reviewed MDM - URI/Sore Throat MDM Narrative Medical decision making narrative: At the time of visit patient is resting comfortably on the exam table. Patient appears to be nontoxic. Plan: I suspect patient has oral thrush. Prescription for nystatin swish and swallow was sent to the pharmacy is patient reports she is having burning down into her esophagus as well. Supportive measures were discussed with the patient and they voiced understanding discharge instructions and agrees to treatment plan. Return precautions reviewed Differential Diagnosis Differential diagnosis: Likely upper respiratory infection, otitis media, sinusitis, viral infection, bronchitis, influenza, pharyngitis and other (Oral thrush) Lab Data Labs: Lab Results 07/11/24 Range/Units 15:28 POC Grp A Strep Screen Negative (Negative) Discharge Plan Discharge Clinical Impression: Oral thrush Patient Disposition: Home Condition: Stable Instructions: Antibiotic Form, Oral Candidiasis (ED) Additional Instructions: Strep test was negative in the clinic today. We will send strep for culture. Take prescription medications only as prescribed-nystatin swish and swallow Increase fluids and stay well hydrated Tylenol/motrin for pain/fever Flonase and OTC antihistamines as directed Vicks vapor rub to open sinuses Sinus rinses for congestion Cepacol spray, cough drops, throat lozenges, warm tea with honey/lemon, gargle salt water to soothe throat BRAT diet for diarrhea Clear liquids x 24 hours then advance as tolerated for nausea/vomiting Go to the ED if you develop a worsening in your condition- high fever not controlled by Tylenol or Motrin, dehydration, weakness, lethargy, shortness of breath, or chest pain. Follow up with your PCP in 3-5 days if symptoms persist. Patient Language: Scottish Prescriptions: New nystatin 100,000 unit/mL suspension 400,000 unit PO QID 14 Days Qty: 224 0RF Rx Instructions: administer 1/2 of dose in each side of the mouth No Action celecoxib [Celebrex] 200 mg capsule 200 mg PO DAILY citalopram 40 mg tablet 40 mg PO DAILY polyethylene glycol 3350 [Miralax] 17 gram/dose powder 17 g PO DAILY levothyroxine 112 mcg tablet 112 mcg PO DAILY pregabalin 150 mg capsule 150 mg PO BID Trulicity 4.5 mg/0.5 mL pen injector subcut hydrochlorothiazide 25 mg tablet PO atorvastatin 40 mg tablet PO losartan 50 mg tablet PO clobetasol 0.05 % ointment 1 applic topical BID 14 Days Qty: 60 5RF Rx Instructions: then use once daily for 2 weeks, then every other day for 2 weeks, then continue using at least 2-4x/month Follow-up/Referrals: Cuco,ELADIO Scruggs [Primary Care Provider] - Time of Disposition: 15:25 Quality NIHSS Nursing Documentation ED NIHSS nursing documentation: reviewed/agree
[2024-07-11 15:30] LABS: EDSTREPNEGPOS1 Negative (Negative)
== END 2024-07-11 15:35 | disposition home or self-care (01) ==
PROVIDERS: Emergency Provider Nurse Practitioner Family; PCP Physician Assistant
DX: B37.0 Candidal stomatitis (principal); I10 Essential (primary) hypertension; E11.9 Type 2 diabetes mellitus without complications; E03.9 Hypothyroidism, unspecified
CPT/HCPCS: 87081; 87880; 99213; G0463

== ENCOUNTER 2024-07-22 08:10 | Emergency (ER) | payer OTHER, SELFPAY ==
--- OUTSIDE RECORDS SUMMARY | 2024-07-22 08:15 | XMS_ITS | Clinical Summary ---
Author Organization [facility] Address [address] [place] [address] Care Team Providers Care Calibration Tester Name Role Phone Unavailable Primary Care Provider Unavailabl e Source Comments [facility],non-owned Affiliates and Associated Physician Practices is amultiple site organization consisting of ambulatory clinics and hospital sitesin [place], [place], [place] and [place]. This disclosure is being madepursuant to the Care Everywhere program and may not contain all information available regarding this patient. 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
--- OUTSIDE RECORDS SUMMARY | 2024-07-22 08:15 | XMS_ITS | Clinical Summary ---
Author Organization [facility] Address [address] [place] [address] Phone Care Team Providers Care Manager Simulation Name Role Phone Marcin oNrwood PAC Primary Care Provider [phone] Allergies No known active allergies Medications citalopram [...] DIGITAL W CAD Routine 03/01/2016 9:09 AM FOREST EXAMINER Visit for screening mammogram from Last 3 Months or Most Recently Relevant to Health Maintenance Results * HEPATITIS PANEL ACUTE (AHP) (09/12/2018 6:53 AM CDT) HEPATITIS A IGM ANTIBODY NON DETECTED NON DETECTED 09/12/2018 3:06 PM CDT [facility] Comment: IGM Antibodies to HAV not detected. Does not exclude early acute or recovered HAV infection. HEP B CORE AB (IGM) NON DETECTED NON DETECTED 09/12/2018 3:06 PM CDT [facility] Comment: IGM anti-HBC not detected. Does not exclude the possibility of exposure to or infection with HBV. HEPATITIS B SURFACE ANTIGEN NON DETECTED NON DETECTED 09/12/2018 3:06 PM CDT [facility] Comment: A nonreactive test result does not [...] 0.06 <1 S/CO 09/12/2018 3:06 PM CDT [facility] Comment: Signal/Cutoff ratio < 0.79 is Nondetected Signal/Cutoff ratio 0.80-0.99 is Grayzone Signal/Cutoff ratio > 0.99 is Detected Supplemental assays are recommended if signal/cutoff ratio is >/=1.00. Signal/cutoff ratio result >/= 5.00 is 97% predictive of positivity for recombinant immunoblot assay (RIBA) and will be reported to the [place] Department of Public Health as required. Blood specimen (specimen) Venipuncture / Unknown 09/12/2018 6:53 AM CDT 09/12/2018 8:25 AM CDT us Jeanne Bruno ORTHODONTIC LABORATORY TECHNICIAN, INSPECTOR ALIGNING HEMATOLOGY ORDERABLES Fi nal Result [facility] [address] [place] [address], * [place] SCREENING BILATERAL DIGITAL W CAD (03/01/2016 9:09 AM FOREST EXAMINER) Anatomical Region Laterality Modality breast Bilateral Mammography 03/01/2016 8:43 AM FOREST EXAMINER Narrative 03/01/2016 3:31 PM FOREST EXAMINER - [place] SCREENING BILATERAL DIGITAL W CAD [...] made to exams dated: 02/27/2015 and 02/27/2014 [facility]. BREAST TISSUE:The tissue of both [...] signed by: Adrián Bailey M.D. mmd/penrad:03/01/2016 12:19:18 Customer Service Clerk: Ailyn Ellis (Sneha), [facility] letter sent: Normal Exam Reading location: [facility] BI-RADS: 1 Negative Procedure Note Adrián [...] made to exams dated: 02/27/2015 and 02/27/2014 [facility]. BREAST TISSUE:The tissue of both [...] signed by: Adrián Bailey M.D. mmd/penrad:03/01/2016 12:19:18 Customer Service Clerk: Ailyn Ellis (Sneha), [facility] letter sent: Normal Exam Reading location: [facility] BI-RADS: 1 Negative us Glenn Mendiola MD IMG MAMMO ORDERABLES Final Res ult from Last 3 Months or Most Recently Relevant to Health Maintenance Insurance [employer]ICAID [employer] Care Teams Manager Simulation Relationship Specialty Start Date End Date Marcin Norwood PAC [address] [place] [address] PCP - General Physician Hse Specialist 02/08/15
--- OUTSIDE RECORDS SUMMARY | 2024-07-22 08:16 | XMS_ITS | Clinical Summary ---
Author Organization [facility] Address [address] [place] [address] Care Team Providers Care E Mail System Administrator Name Role Phone Marcin Norwood Primary Care Provider [phone] Allergies No known active allergies Medications levothyroxine [...] 05/13/2024 Assessment & Plan (05/13/2024 8:57 AM TECHNICAL TESTING ENGINEER): Continue small frequent meals encouraging protein intake. [...] week. Assessment & Plan (05/17/2023 8:35 AM TECHNICAL TESTING ENGINEER): This is a chronic condition which is not at goal of LDL less than 70 Continue atorvastatin Encouraged to eat healthy, include fresh fruits and vegetables daily and avoid eating fried foods more than once per week. Encouraged to take medications as prescribed. Lymphedema associated with obesity 02/13/2023 Assessment & Plan (02/13/2023 10:19 AM TECHNICAL TESTING ENGINEER): This is a chronic condition which is worse on the left than the right Occupational therapy ordered at [facility] for evaluation. Primary hypertension 11/13/2022 Assessment & Plan (11/15/2023 8:52 AM CDT): This is a chronic condition which is at goal. Goal is less than 140/90 Continue losartan/HCTZ Encouraged to monitor weight and B/P at home. Encouraged to void caffeine and excessive alcohol consumption as this will elevate B/P Assessment & Plan (05/17/2023 8:33 AM TECHNICAL TESTING ENGINEER): This is a chronic condition which is at goal of less than 140/90 Personally reviewed labs. Continue losartan, hydrochlorothiazide Encouraged to monitor weight and B/P at home Encouraged to take medications as prescribed. Assessment & Plan (02/13/2023 9:11 AM TECHNICAL TESTING ENGINEER): This is a chronic condition which is [...] (11/03/2021): Added automatically from request for surgery [id number] Chronic constipation 11/02/2021 Assessment & Plan (11/02/2021 [...] control. Assessment & Plan (05/17/2023 8:33 AM TECHNICAL TESTING ENGINEER): This is a chronic condition which is [...] atorvastatin Assessment & Plan (02/13/2023 9:10 AM TECHNICAL TESTING ENGINEER): This is a chronic condition which is [...] time Assessment & Plan (03/16/2022 9:33 AM TECHNICAL TESTING ENGINEER): This is a chronic condition which is [...] day. Assessment & Plan (05/17/2023 8:33 AM TECHNICAL TESTING ENGINEER): This is a chronic condition which is [...] day. Assessment & Plan (03/16/2022 9:30 AM TECHNICAL TESTING ENGINEER): .robert This is a chronic condition which [...] 10/11/2021 Assessment & Plan (02/07/2024 9:39 AM TECHNICAL TESTING ENGINEER): Continue to advance diet as laid out [...] obesity. Assessment & Plan (05/17/2023 8:34 AM TECHNICAL TESTING ENGINEER): This is a chronic condition which has slightly improved She has lost an additional 4 lb since her last office visit Increase Trulicity to 4.5 mg weekly Ambulatory referral to Bariatric surgery/Dr. Romero Encouraged continue healthy eating and exercise as tolerated Assessment & Plan (02/13/2023 9:11 AM TECHNICAL TESTING ENGINEER): This is a chronic condition which continues 7 lb weight loss since last office visit Encouraged increase ambulation Discussed increasing Trulicity but since she is still losing weight we will maintain at current dose Assessment & Plan (02/13/2023 9:07 AM TECHNICAL TESTING ENGINEER): >>ASSESSMENT AND PLAN FOR BODY MASS INDEX (BMI) 50.0-59.9, ADULT (HCC) WRITTEN ON 03/16/2022 9:30 AM BY DOMONIQUE LIRIANO, CONTENT CHECKER This is a chronic condition which is improving. 36 lbs weight loss over last 5 months Total weight loss = 60lbs. In the last year. Has seen diabetes education and nutritional couseling increased trulicity 1.5mg weekly to promote weight loss. Assessment & Plan (02/13/2023 9:07 AM TECHNICAL TESTING ENGINEER): >>ASSESSMENT AND PLAN FOR BODY MASS INDEX (BMI) 50.0-59.9, ADULT ([facility]) WRITTEN ON 07/14/2022 9:41 AM BY DOMONIQUE LIRIANO NP This is a chronic condition which is improving Further 22 lb weight loss since last office visit. Total weight loss since 10/07 equals 22 lb Continue Trulicity 1.5 mg Discussed increasing exercise in swimming pool Just walking in the pool . Assessment & Plan (02/13/2023 9:07 AM TECHNICAL TESTING ENGINEER): >>ASSESSMENT AND PLAN FOR CLASS 3 SEVERE OBESITY DUE TO EXCESS CALORIES WITH SERIOUS COMORBIDITY AND BODY MASS INDEX (BMI) OF 50.0 TO 59.9 IN ADULT ([facility]) WRITTEN ON 11/13/2022 9:54 AM BY DOMONIQUE LIRIANO NP This is a chronic condition which is improving 8 lb weight loss since last office visit Increase Trulicity to 3 mg weekly Encourage continue weight loss and exercise >>ASSESSMENT AND PLAN FOR BODY MASS INDEX (BMI) 50.0-59.9, ADULT ([facility]) WRITTEN ON 11/13/2022 9:54 AM BY DOMONIQUE LIRIANO NP This is a chronic condition which is improving 8 lb weight loss since last office visit Increase Trulicity to 3 mg weekly Encourage continue weight loss and exercise Assessment & Plan (02/13/2023 9:07 AM TECHNICAL TESTING ENGINEER): >>ASSESSMENT AND PLAN FOR CLASS 3 SEVERE OBESITY DUE TO EXCESS CALORIES WITH SERIOUS COMORBIDITY AND BODY MASS INDEX (BMI) OF 50.0 TO 59.9 IN ADULT ([facility]) WRITTEN ON 12/14/2021 10:54 AM BY DOMONIQUE LIRIANO NP This is a chronic condition which is improving by 13 lb weight loss. Encouraged weight loss and exercise Referred to diabetes education and nutritional couseling Continue trulicity 0.75mg weekly to promote weight loss. >>ASSESSMENT AND PLAN FOR BODY MASS INDEX (BMI) 50.0-59.9, ADULT ([facility]) WRITTEN ON 12/14/2021 10:55 AM BY DOMONIQUE LIRIANO NP This is a chronic condition which is improving. 13 lbs weight loss Has seen diabetes education and nutritional couseling Continue trulicity 0.75mg weekly to promote weight loss. Assessment & Plan (02/13/2023 9:07 AM TECHNICAL TESTING ENGINEER): >>ASSESSMENT AND PLAN FOR CLASS 3 SEVERE OBESITY DUE TO EXCESS CALORIES WITH SERIOUS COMORBIDITY AND BODY MASS INDEX (BMI) OF 50.0 TO 59.9 IN ADULT ([facility]) WRITTEN ON 11/02/2021 11:14 AM BY DOMONIQUE LIRIANO NP This is a chronic condition which is improving by 14 lb weight loss. Encouraged weight loss and exercise Referred to diabetes education and nutritional couseling Continue trulicity 0.75mg weekly to promote weight loss. >>ASSESSMENT AND PLAN FOR BODY MASS INDEX (BMI) 50.0-59.9, ADULT ([facility]) WRITTEN ON 11/02/2021 11:14 AM BY DOMONIQUE LIRIANO NP This is a chronic condition which is improving. 14 lbs weight loss Referred to diabetes education and nutritional couseling Continue trulicity 0.75mg weekly to promote weight loss. Assessment & Plan (02/13/2023 9:07 AM TECHNICAL TESTING ENGINEER): >>ASSESSMENT AND PLAN FOR CLASS 3 SEVERE OBESITY DUE TO EXCESS CALORIES WITH SERIOUS COMORBIDITY AND BODY MASS INDEX (BMI) OF 50.0 TO 59.9 IN ADULT ([facility]) WRITTEN ON 10/11/2021 6:13 PM BY DOMONIQUE LIRIANO, JOSELUIS This is a chronic condition Encouraged weight loss and exercise Referred to diabetes education and nutritional couseling Start trulicity 0.75mg weekly to promote weight loss. >>ASSESSMENT AND PLAN FOR BODY MASS INDEX (BMI) 50.0-59.9, ADULT ([facility]) WRITTEN ON 10/11/2021 6:14 PM BY DOMONIQUE LIRIANO, JOSELUIS This is a chronic condition Encouraged weight loss and exercise Referred to diabetes education and nutritional couseling Start trulicity 0.75mg weekly to promote weight loss. Encounters Date Type Department Care Team Description 05/19/2024 Results Follow-Up [facility] Diabetes Endocrine Care at [address] [id number] Domonique Liriano, CONTENT CHECKER 05/16/2024 8:50 AM TECHNICAL TESTING ENGINEER - 05/16/2024 11:59 PM TECHNICAL TESTING ENGINEER Hospital Encounter [address] [address] Type 2 diabetes mellitus with microalbuminuria, without long-term current use of insulin (HCC) Discharge Disposition: Discharge to home or self care 05/16/2024 8:45 AM TECHNICAL TESTING ENGINEER Lab [facility] Outpatient Lab at [address] [place] [address] Type II diabetes mellitus with renal manifestations (HCC) (Primary Dx); Proteinuria 05/16/2024 8:00 AM TECHNICAL TESTING ENGINEER Office Visit [facility] Diabetes Endocrine Care at [address] [place] [id number] Domonique Liriano, JOSELUIS Type 2 diabetes mellitus with microalbuminuria, without long-term current use of insulin (HCC) (Primary Dx); Hyperlipidemia associated with type 2 diabetes mellitus (HCC); Acquired hypothyroidism; Primary hypertension; Status post sleeve gastrectomy; Class 3 severe obesity due to excess calories with serious comorbidity and body mass index (BMI) of 40.0 to 44.9 in adult (HCC) 05/16/2024 Orders Only [facility] Diabetes Endocrine Care at [address] [phone] Yanira Ellison MD 05/13/2024 8:30 AM TECHNICAL TESTING ENGINEER Office Visit [facility] [address] [facility] [facility] [address] [place] [phone] Adrián Romero MD Status post sleeve gastrectomy (Primary Dx) 05/06/2024 8:30 AM TECHNICAL TESTING ENGINEER - 05/06/2024 11:59 PM TECHNICAL TESTING ENGINEER Hospital Encounter [facility] Nutrition and Diabetic Education [address] [facility] [place] [facility] [address] [place] [address] Discharge Disposition: Discharge to home or self care from Last 3 Months Immunizations Immunization Administration Dates Next Due Pfizer SARS-CoV-2 Monovalent Vaccination (12+ Yrs) PURPLE 12/02/2021(Deferred: Patient Refused) Surgical History Surgery Date Site/Laterality Comments MYRINGOTOMY W/ TUBES TONSILLECTOMY COLONOSCOPY 11/14/2021 CHOLECYSTECTOMY N/A TUBAL LIGATION 03/19/2011 - 03/18/2012 Pt states she had done at [facility] UPPER GASTROINTESTINAL ENDOSCOPY 09/18/2023 SECTION 2 [...] drink = 0.6 oz pur e alcohol) [employer] Answer Date Recorded In the past 12 months has [employer], gas, oil, or water [employer] threatened to shut off services in your [...] How often do you attend chur or rastafari services? Never 01/03/2024 Do you belong to any clubs o r organizations such as pentecostal groups, unions, fraternal or athletic groups, or [...] any time in the past 12 m [facility], were you homeless or living in a residential (including now)? No 01/03/2024 Personal Safety Answer Date Recorded Have you ever been in or are you currently in a harmful physical or emotional relationship or is someone making you feel afraid or unsafe? Denies 01/02/2024 Comments No Sex and Gender Information Value Date Recorded Sex Assigned at Not on file Legal Sex Female 7:20 PM TECHNICAL TESTING ENGINEER Gender Identity Female 10/13/2019 10:18 PM CDT [...] Comments Blood Pressure 106/60 05/16/2024 8:14 AM TECHNICAL TESTING ENGINEER Pulse 115 05/13/2024 8:34 AM TECHNICAL TESTING ENGINEER Temperature 36.3 C (97.3 F) 05/13/2024 8:34 AM TECHNICAL TESTING ENGINEER Respiratory Rate 20 01/03/2024 11:41 AM CDT Oxygen Saturation 99% 05/13/2024 8:34 AM TECHNICAL TESTING ENGINEER Inhaled Oxygen Concentration - - Weight 113.4 kg (250 lb) 05/16/2024 8:14 AM TECHNICAL TESTING ENGINEER Height 165.1 cm (5' 5 ) 05/16/2024 8:14 AM TECHNICAL TESTING ENGINEER Body Mass Index 41.6 05/16/2024 8:14 AM TECHNICAL TESTING ENGINEER Plan of Treatment Health Maintenance Due Date [...] Diagnosis Comments EGFR Routine 05/16/2024 8:50 AM TECHNICAL TESTING ENGINEER Type 2 diabetes mellitus with microalbuminuria, without long-term current use of insulin (HCC) THYROID FUNCTION CASCADE Routine 05/16/2024 8:50 AM TECHNICAL TESTING ENGINEER Type 2 diabetes mellitus with microalbuminuria, without long-term current use of insulin (HCC) LIPID PANEL Routine 05/16/2024 8:50 AM TECHNICAL TESTING ENGINEER Type 2 diabetes mellitus with microalbuminuria, without long-term current use of insulin (HCC) COMPREHENSIVE METABOLIC PANEL Routine 05/16/2024 8:50 AM TECHNICAL TESTING ENGINEER Type 2 diabetes mellitus with microalbuminuria, without long-term current use of insulin (HCC) ALBUMIN CREATININE RATIO, URINE Routine 05/16/2024 8:50 AM TECHNICAL TESTING ENGINEER Type 2 diabetes mellitus with microalbuminuria, without long-term current use of insulin ([facility]) DIABETIC EYE EXAM Routine 05/16/2024 8:2 6 AM TECHNICAL TESTING ENGINEER POCT HEMOGLOBIN A1C Routine 05/16/2024 8 :19 AM TECHNICAL TESTING ENGINEER Type 2 diabetes mellitus with microalbuminuria, without long-term current use of insulin (HCC) POCT GLUCOSE Routine 05/16/2024 8:14 AM TECHNICAL TESTING ENGINEER Type 2 diabetes mellitus with microalbuminuria, without long-term current use of insulin ([facility]) DIABETIC EYE EXAM Routine 05/02/2024 8:2 7 AM TECHNICAL TESTING ENGINEER SCREENING MAMMOGRAM BILATERAL W JEAN Schedule Routine, Read Routine (OP Routine) 12/08/2023 10:49 AM CDT Screening mammogram, encounter for COLONOSCOPY 11/14/2021 12:21 PM CDT from Last 3 Months or Most Recently Relevant to Health Maintenance Results * eGFR (05/16/2024 8:50 AM TECHNICAL TESTING ENGINEER) eGFR >90 >=60 mL/min/1. 73 m2 Comment: [...] last reviewed 2021. Blood 05/16/2024 8:50 AM TECHNICAL TESTING ENGINEER 05/16/2024 3:53 PM TECHNICAL TESTING ENGINEER Domonique Liriano NP LAB BLOOD ORDERABLES Final Resu lt Performing Organization Address [facility] de Phone Number [facility] [address] [address] [place] [address] * Thyroid Function Pratt (05/16/2024 8:50 AM TECHNICAL TESTING ENGINEER) Pathologist [facility] TSH 0.34 0.30 - 4.20 mcIUnit/mL Blood 05/16/2024 8:50 AM TECHNICAL TESTING ENGINEER 05/16/2024 3:49 PM TECHNICAL TESTING ENGINEER Domonique Liriano NP LAB BLOOD ORDERABLES Final Resu lt Performing Organization Address [facility] de Phone Number [facility] [address] [address] [place] [address] * Albumin Creatinine Ratio, Urine (05/16/2024 8:50 AM TECHNICAL TESTING ENGINEER) Albumin Ur <12.0 mg/L Comment: Interpretive Data No reference range established. Current interpretive data was last revised 2018. Creatinine Ur 211.8 mg/dL [facility] Comment: Interpretive Data No reference range established. Current interpretive data was last revised 2018. Albumin Creatinine Ratio, Ur <6 1 - 29 mg/g [facility] Urine 05/16/2024 8:50 AM TECHNICAL TESTING ENGINEER 05/16/2024 3:49 PM TECHNICAL TESTING ENGINEER us Domonique Liriano CONTENT CHECKER LAB URINE ORDERABLES Final Resu lt [facility] [id number] [address] Department [place] [address] * Lipid panel (05/16/2024 8:50 AM TECHNICAL TESTING ENGINEER) Cholesterol 110 30 - 199 mg/dL Comment: [...] ratio 2 [facility] Blood 05/16/2024 8:50 AM TECHNICAL TESTING ENGINEER 05/16/2024 3:49 PM TECHNICAL TESTING ENGINEER Narrative CERNER CH - 05/16/2024 5:08 PM TECHNICAL TESTING ENGINEER These lab test should be done fasting. This means do not eat or drink for at least 12 hours prior to getting your blood drawn. Has the patient been fasting for 8 hours or more?->Yes us Domonique Liriano NP LAB BLOOD ORDERABLES Final Resu lt [facility] [id number] [address] Department [place] [address] * (ABNORMAL) Comprehensive metabolic panel (05/16/2024 8:50 AM TECHNICAL TESTING ENGINEER) Sodium 140 135 - 145 mmol/L Potassium, [...] Units/L CERNER CH Blood 05/16/2024 8:50 AM TECHNICAL TESTING ENGINEER 05/16/2024 3:49 PM TECHNICAL TESTING ENGINEER Result [facility] Domonique Liriano CONTENT CHECKER LAB BLOOD ORDERABLES Final Resu lt [facility] [id number] [address] Department [place] [address] * Diabetic Eye Exam (05/16/2024 8:26 AM TECHNICAL TESTING ENGINEER) Result [facility] Provider [facility] Final Result * POCT hemoglobin A1c (05/16/2024 8:19 AM TECHNICAL TESTING ENGINEER) Hemoglobin A1C, POC 5.0 4.0 - 5.6 % Blood 05/16/2024 8:19 AM TECHNICAL TESTING ENGINEER Result [facility] Domonique Liriano NP POINT OF CARE TEST ORDERABLES F inal Result * POCT glucose (05/16/2024 8:14 AM TECHNICAL TESTING ENGINEER) Glucose Blood, POC 116 mg/dL Blood 05/16/2024 8:14 AM TECHNICAL TESTING ENGINEER Result [facility] Domonique Liriano NP POINT OF CARE TEST ORDERABLES F inal Result * Diabetic Eye Exam (05/02/2024 8:27 AM TECHNICAL TESTING ENGINEER) Result [facility] Provider [facility] Final Result * (ABNORMAL) Screening Mammogram Bilateral [...] Laterality Modality Other Narrative Procedure Note Gavi Osoroi MD - 11/14/2021 12:21 PM CDT [facility] Patient Name: Della Zhao Procedure Date: 11/14/2021 12:21 PM Date of : 1975 Admit Type: Outpatient Age: 46 Gender: Female Attending MD: Gavi Osorio M.D. Room: [facility] ROOM 1 Note Status: Finalized Patient Profile: [...] under direct vision. The Pediatric Colonoscope [id number] [id number] was introducedthrough the anus and advanced to [...] 12:21 PM Procedure Code(s): --- Professional --- 59757, Colonoscopy, flexible; diagnostic, including collection of specimen(s) by brushing or washing, when performed (separateprocedure) Diagnosis Code(s): --- Professional --- Z12.11, Encounter for screening for malignant neoplasm of colon K64.8, Other hemorrhoids CPT copyright 2020 [employer]. All rights reserved. The codes documented in this report are preliminary and upon health information coder reviewmay be revised to meet current compliance requirements. Recognized by the [employer] for promoting quality in endoscopy Gavi Osorio MD ENDOSCOPY PROCEDURES Final Result from Last 3 Months or Most Recently Relevant to Health Maintenance Insurance [id number] [place] [address] [facility] Advance Directives For more information, please contact: [phone] * Full Code (Latest Code Status on [...] 11:44 AM 11/14/2021 6:16 PM Care Teams E Mail System Administrator Relationship Specialty Start Date End Date Marcin Norwood PA [address] [place] [address] PCP - General Family Practice 09/03/19
--- OUTSIDE RECORDS SUMMARY | 2024-07-22 08:16 | XMS_ITS | Referral Summary ---
Author Organization [facility] Address [address] [place] [address] Care Team Providers Care Sack Sorter Name Role Phone Marcin Norwood Primary Care Provider [phone] Encounters Date Type Department Care Team Description 05/19/2024 Results Follow-Up [facility] Diabetes Endocrine Care at [address] [address] Domonique Liriano NP 05/16/2024 8:50 AM GUN SEALING MACHINE OPERATOR - 05/16/2024 11:59 PM GUN SEALING MACHINE OPERATOR Hospital Encounter [address] [id number] Type 2 diabetes mellitus with microalbuminuria, without long-term current use of insulin (HCC) Discharge Disposition: Discharge to home or self care 05/16/2024 8:45 AM GUN SEALING MACHINE OPERATOR Lab [facility] Outpatient Lab at [address] [address] Type II diabetes mellitus with renal manifestations (HCC) (Primary Dx); Proteinuria 05/16/2024 Orders Only [facility] Diabetes Endocrine Care at [address] [address] ProviderYanira MD 05/16/2024 8:00 AM GUN SEALING MACHINE OPERATOR Office Visit [facility] Diabetes Endocrine Care at [address] [address] Domonique Liriano, JOSELUIS Type 2 diabetes mellitus with microalbuminuria, without long-term current use of insulin (HCC) (Primary Dx); Hyperlipidemia associated with type 2 diabetes mellitus (HCC); Acquired hypothyroidism; Primary hypertension; Status post sleeve gastrectomy; Class 3 severe obesity due to excess calories with serious comorbidity and body mass index (BMI) of 40.0 to 44.9 in adult (HCC) 05/13/2024 8:30 AM GUN SEALING MACHINE OPERATOR Office Visit [facility] [address] [facility] [address] [place] [address] Adrián Romero MD Status post sleeve gastrectomy (Primary Dx) 05/06/2024 8:30 AM GUN SEALING MACHINE OPERATOR - 05/06/2024 11:59 PM GUN SEALING MACHINE OPERATOR Hospital Encounter [facility] Nutrition and Diabetic Education [address] [facility] [address] [place] [address] Sierra, Fabby Perales RD Discharge Disposition: Discharge [...] 05/13/2024 Assessment & Plan (05/13/2024 8:57 AM GUN SEALING MACHINE OPERATOR): Continue small frequent meals encouraging protein intake. [...] week. Assessment & Plan (05/17/2023 8:35 AM GUN SEALING MACHINE OPERATOR): This is a chronic condition which is not at goal of LDL less than 70 Continue atorvastatin Encouraged to eat healthy, include fresh fruits and vegetables daily and avoid eating fried foods more than once per week. Encouraged to take medications as prescribed. Lymphedema associated with obesity 02/13/2023 Assessment & Plan (02/13/2023 10:19 AM GUN SEALING MACHINE OPERATOR): This is a chronic condition which is worse on the left than the right Occupational therapy ordered at [facility] for evaluation. Primary hypertension 11/13/2022 Assessment & Plan (11/15/2023 8:52 AM CDT): This is a chronic condition which is at goal. Goal is less than 140/90 Continue losartan/HCTZ Encouraged to monitor weight and B/P at home. Encouraged to void caffeine and excessive alcohol consumption as this will elevate B/P Assessment & Plan (05/17/2023 8:33 AM GUN SEALING MACHINE OPERATOR): This is a chronic condition which is at goal of less than 140/90 Personally reviewed labs. Continue losartan, hydrochlorothiazide Encouraged to monitor weight and B/P at home Encouraged to take medications as prescribed. Assessment & Plan (02/13/2023 9:11 AM GUN SEALING MACHINE OPERATOR): This is a chronic condition which is [...] (11/03/2021): Added automatically from request for surgery [id number] Chronic constipation 11/02/2021 Assessment & Plan (11/02/2021 [...] control. Assessment & Plan (05/17/2023 8:33 AM GUN SEALING MACHINE OPERATOR): This is a chronic condition which is [...] atorvastatin Assessment & Plan (02/13/2023 9:10 AM GUN SEALING MACHINE OPERATOR): This is a chronic condition which is [...] time Assessment & Plan (03/16/2022 9:33 AM GUN SEALING MACHINE OPERATOR): This is a chronic condition which is [...] day. Assessment & Plan (05/17/2023 8:33 AM GUN SEALING MACHINE OPERATOR): This is a chronic condition which is [...] day. Assessment & Plan (03/16/2022 9:30 AM GUN SEALING MACHINE OPERATOR): .robert This is a chronic condition which [...] 10/11/2021 Assessment & Plan (02/07/2024 9:39 AM GUN SEALING MACHINE OPERATOR): Continue to advance diet as laid out [...] lifting for 4 weeks. Multivitamin, calcium and vitamin- D. Continue to advance diet as laid out [...] obesity. Assessment & Plan (05/17/2023 8:34 AM GUN SEALING MACHINE OPERATOR): This is a chronic condition which has slightly improved She has lost an additional 4 lb since her last office visit Increase Trulicity to 4.5 mg weekly Ambulatory referral to Bariatric surgery/Dr. Romero Encouraged continue healthy eating and exercise as tolerated Assessment & Plan (02/13/2023 9:11 AM GUN SEALING MACHINE OPERATOR): This is a chronic condition which continues 7 lb weight loss since last office visit Encouraged increase ambulation Discussed increasing Trulicity but since she is still losing weight we will maintain at current dose Assessment & Plan (02/13/2023 9:07 AM GUN SEALING MACHINE OPERATOR): >>ASSESSMENT AND PLAN FOR BODY MASS INDEX [...] loss. Assessment & Plan (02/13/2023 9:07 AM GUN SEALING MACHINE OPERATOR): >>ASSESSMENT AND PLAN FOR BODY MASS INDEX (BMI) 50.0-59.9, ADULT (FORMERLY [facility]) WRITTEN ON 07/14/2022 9:41 AM BY DOMONIQUE LIRIANO NP This is a chronic condition which is improving Further 22 lb weight loss since last office visit. Total weight loss since 10/07 equals 22 lb Continue Trulicity 1.5 mg Discussed increasing exercise in swimming pool Just walking in the pool . Assessment & Plan (02/13/2023 9:07 AM GUN SEALING MACHINE OPERATOR): >>ASSESSMENT AND PLAN FOR CLASS 3 SEVERE OBESITY DUE TO EXCESS CALORIES WITH SERIOUS COMORBIDITY AND BODY MASS INDEX (BMI) OF 50.0 TO 59.9 IN ADULT (FORMERLY [facility]) WRITTEN ON 11/13/2022 9:54 AM BY DOMONIQUE LIRIANO, JOSELUIS This is a chronic condition which is improving 8 lb weight loss since last office visit Increase Trulicity to 3 mg weekly Encourage continue weight loss and exercise >>ASSESSMENT AND PLAN FOR BODY MASS INDEX (BMI) 50.0-59.9, ADULT (FORMERLY [facility]) WRITTEN ON 11/13/2022 9:54 AM BY DOMONIQUE LIRIANO NP This is a chronic condition which is improving 8 lb weight loss since last office visit Increase Trulicity to 3 mg weekly Encourage continue weight loss and exercise Assessment & Plan (02/13/2023 9:07 AM GUN SEALING MACHINE OPERATOR): >>ASSESSMENT AND PLAN FOR CLASS 3 SEVERE OBESITY DUE TO EXCESS CALORIES WITH SERIOUS COMORBIDITY AND BODY MASS INDEX (BMI) OF 50.0 TO 59.9 IN ADULT (FORMERLY [facility]) WRITTEN ON 12/14/2021 10:54 AM BY DOMONIQUE LIRIANO, THERAPEUTIC ACTIVITIES SERVICES WORKER This is a chronic condition which is improving by 13 lb weight loss. Encouraged weight loss and exercise Referred to diabetes education and nutritional couseling Continue trulicity 0.75mg weekly to promote weight loss. >>ASSESSMENT AND PLAN FOR BODY MASS INDEX (BMI) 50.0-59.9, ADULT (FORMERLY [facility]) WRITTEN ON 12/14/2021 10:55 AM BY DOMONIQUE LIRIANO, JOSELUIS This is a chronic condition which is improving. 13 lbs weight loss Has seen diabetes education and nutritional couseling Continue trulicity 0.75mg weekly to promote weight loss. Assessment & Plan (02/13/2023 9:07 AM GUN SEALING MACHINE OPERATOR): >>ASSESSMENT AND PLAN FOR CLASS 3 SEVERE OBESITY DUE TO EXCESS CALORIES WITH SERIOUS COMORBIDITY AND BODY MASS INDEX (BMI) OF 50.0 TO 59.9 IN ADULT (FORMERLY [facility]) WRITTEN ON 11/02/2021 11:14 AM BY DOMONIQUE LIRIANO NP This is a chronic condition which is improving by 14 lb weight loss. Encouraged weight loss and exercise Referred to diabetes education and nutritional couseling Continue trulicity 0.75mg weekly to promote weight loss. >>ASSESSMENT AND PLAN FOR BODY MASS INDEX (BMI) 50.0-59.9, ADULT (FORMERLY [facility]) WRITTEN ON 11/02/2021 11:14 AM BY DOMONIQUE LIRIANO NP This is a chronic condition which is improving. 14 lbs weight loss Referred to diabetes education and nutritional couseling Continue trulicity 0.75mg weekly to promote weight loss. Assessment & Plan (02/13/2023 9:07 AM GUN SEALING MACHINE OPERATOR): >>ASSESSMENT AND PLAN FOR CLASS 3 SEVERE OBESITY DUE TO EXCESS CALORIES WITH SERIOUS COMORBIDITY AND BODY MASS INDEX (BMI) OF 50.0 TO 59.9 IN ADULT (FORMERLY [facility]) WRITTEN ON 10/11/2021 6:13 PM BY DOMONIQUE LIRIANO NP This is a chronic condition Encouraged weight loss and exercise Referred to diabetes education and nutritional couseling Start trulicity 0.75mg weekly to promote weight loss. >>ASSESSMENT AND PLAN FOR BODY MASS INDEX (BMI) 50.0-59.9, ADULT (FORMERLY [facility]) WRITTEN ON 10/11/2021 6:14 PM BY DOMONIQUE [...] drink = 0.6 oz pur e alcohol) [facility] Utilities Answer Date Recorded In the past [...] often do you attend chur ch or baptism services? Never 01/03/2024 Do you belong to any clubs o r organizations such as oriental orthodox groups, unions, fraternal or athletic groups, or [...] any time in the past 12 m [facility], were you homeless or living in a assisted (including now)? No 01/03/2024 Personal Safety Answer Date Recorded Have you ever been in or are you currently in a harmful physical or emotional relationship or is someone making you feel afraid or unsafe? Denies 01/02/2024 Comments No Sex and Gender Information Value Date Recorded Sex Assigned at Not on file Legal Sex Female 7:20 PM GUN SEALING MACHINE OPERATOR Gender Identity Female 10/13/2019 10:18 PM CDT Sexual Orientation Straight 10/13/2019 10 :18 PM CDT Last Filed Vital Signs Vital Sign Reading Time Taken Comments Blood Pressure 106/60 05/16/2024 8:14 AM GUN SEALING MACHINE OPERATOR Pulse 115 05/13/2024 8:34 AM GUN SEALING MACHINE OPERATOR Temperature 36.3 C (97.3 F) 05/13/2024 8:34 AM GUN SEALING MACHINE OPERATOR Respiratory Rate 20 01/03/2024 11:41 AM CDT Oxygen Saturation 99% 05/13/2024 8:34 AM GUN SEALING MACHINE OPERATOR Inhaled Oxygen Concentration - - Weight 113.4 kg (250 lb) 05/16/2024 8:14 AM GUN SEALING MACHINE OPERATOR Height 165.1 cm (5' 5 ) 05/16/2024 8:14 AM GUN SEALING MACHINE OPERATOR Body Mass Index 41.6 05/16/2024 8:14 AM GUN SEALING MACHINE OPERATOR Plan of Treatment Not on file Procedures Procedure Name Priority Date/Time Associated Diagnosis Comments EGFR Routine 05/16/2024 8:50 AM GUN SEALING MACHINE OPERATOR Type 2 diabetes mellitus with microalbuminuria, without long-term current use of insulin (HCC) THYROID FUNCTION CASCADE Routine 05/16/2024 8:50 AM GUN SEALING MACHINE OPERATOR Type 2 diabetes mellitus with microalbuminuria, without long-term current use of insulin (HCC) LIPID PANEL Routine 05/16/2024 8:50 AM GUN SEALING MACHINE OPERATOR Type 2 diabetes mellitus with microalbuminuria, without long-term current use of insulin (HCC) COMPREHENSIVE METABOLIC PANEL Routine 05/16/2024 8:50 AM GUN SEALING MACHINE OPERATOR Type 2 diabetes mellitus with microalbuminuria, without long-term current use of insulin (HCC) ALBUMIN CREATININE RATIO, URINE Routine 05/16/2024 8:50 AM GUN SEALING MACHINE OPERATOR Type 2 diabetes mellitus with microalbuminuria, without long-term current use of insulin (HCC) DIABETIC EYE EXAM Routine 05/16/2024 8:2 6 AM GUN SEALING MACHINE OPERATOR POCT HEMOGLOBIN A1C Routine 05/16/2024 8 :19 AM GUN SEALING MACHINE OPERATOR Type 2 diabetes mellitus with microalbuminuria, without long-term current use of insulin (HCC) POCT GLUCOSE Routine 05/16/2024 8:14 AM GUN SEALING MACHINE OPERATOR Type 2 diabetes mellitus with microalbuminuria, without long-term current use of insulin (HCC) DIABETIC EYE EXAM Routine 05/02/2024 8:2 7 AM GUN SEALING MACHINE OPERATOR SCREENING MAMMOGRAM BILATERAL W JEAN Schedule Routine, Read Routine (OP Routine) 12/08/2023 10:49 AM CDT Screening mammogram, encounter for COLONOSCOPY 11/14/2021 12:21 PM CDT from Last 3 Months or Most Recently Relevant to Health Maintenance Results * eGFR (05/16/2024 8:50 AM GUN SEALING MACHINE OPERATOR) eGFR >90 >=60 mL/min/1. 73 m2 Comment: [...] last reviewed 2021. Blood 05/16/2024 8:50 AM GUN SEALING MACHINE OPERATOR 05/16/2024 3:53 PM GUN SEALING MACHINE OPERATOR Domonique Liriano NP LAB BLOOD ORDERABLES Final Resu lt Performing Organization Address [facility] Phone Number [facility] [address] [address] [place] [address] * Thyroid Function Mayes (05/16/2024 8:50 AM GUN SEALING MACHINE OPERATOR) TSH 0.34 0.30 - 4.20 mcIUnit/mL Blood 05/16/2024 8:50 AM GUN SEALING MACHINE OPERATOR 05/16/2024 3:49 PM GUN SEALING MACHINE OPERATOR Domonique Liriano NP LAB BLOOD ORDERABLES Final Resu lt Performing Organization Address [facility] Phone Number [facility] [address] [address] Department [place] [address] * Albumin Creatinine Ratio, Urine (05/16/2024 8:50 AM GUN SEALING MACHINE OPERATOR) Albumin Ur <12.0 mg/L Comment: Interpretive Data No reference range established. Current interpretive data was last revised 2018. Creatinine Ur 211.8 mg/dL [facility] Comment: Interpretive Data No reference range established. Current interpretive data was last revised 2018. Albumin Creatinine Ratio, Ur <6 1 - 29 mg/g [facility] Urine 05/16/2024 8:50 AM GUN SEALING MACHINE OPERATOR 05/16/2024 3:49 PM GUN SEALING MACHINE OPERATOR Domonique Liriano NP LAB URINE ORDERABLES Final Resu lt [facility] [id number] [facility] Department [place] [address] * Lipid panel (05/16/2024 8:50 AM GUN SEALING MACHINE OPERATOR) Cholesterol 110 30 - 199 mg/dL Comment: [...] ratio 2 [facility] Blood 05/16/2024 8:50 AM GUN SEALING MACHINE OPERATOR 05/16/2024 3:49 PM GUN SEALING MACHINE OPERATOR Narrative [facility] - 05/16/2024 5:08 PM GUN SEALING MACHINE OPERATOR These lab test should be done fasting. This means do not eat or drink for at least 12 hours prior to getting your blood drawn. Has the patient been fasting for 8 hours or more?->Yes us Domonique Liriano THERAPEUTIC ACTIVITIES SERVICES WORKER LAB BLOOD ORDERABLES Final Resu lt [facility] [id number] [address] Department [place] [address] * (ABNORMAL) Comprehensive metabolic panel (05/16/2024 8:50 AM GUN SEALING MACHINE OPERATOR) Sodium 140 135 - 145 mmol/L Potassium, [...] Units/L CERNER CH Blood 05/16/2024 8:50 AM GUN SEALING MACHINE OPERATOR 05/16/2024 3:49 PM GUN SEALING MACHINE OPERATOR us Domonique Liriano THERAPEUTIC ACTIVITIES SERVICES WORKER LAB BLOOD ORDERABLES Final Resu lt [facility] [id number] [address] Department [place] [address] * Diabetic Eye Exam (05/16/2024 8:26 AM GUN SEALING MACHINE OPERATOR) us Historical Provider HEALTH MAINTENANCE Final Result * POCT hemoglobin A1c (05/16/2024 8:19 AM GUN SEALING MACHINE OPERATOR) Hemoglobin A1C, POC 5.0 4.0 - 5.6 % Blood 05/16/2024 8:19 AM GUN SEALING MACHINE OPERATOR Result [facility] Domonique Liriano NP POINT OF CARE TEST ORDERABLES F inal Result * POCT glucose (05/16/2024 8:14 AM GUN SEALING MACHINE OPERATOR) Glucose Blood, POC 116 mg/dL Blood 05/16/2024 8:14 AM GUN SEALING MACHINE OPERATOR Result [facility] Domonique Liriano THERAPEUTIC ACTIVITIES SERVICES WORKER POINT OF CARE TEST ORDERABLES F inal Result * Diabetic Eye Exam (05/02/2024 8:27 AM GUN SEALING MACHINE OPERATOR) Result [facility] Final Result * (ABNORMAL) Screening Mammogram Bilateral [...] Osorio MD - 11/14/2021 12:21 PM CDT [facility] Patient Name: Della Zhao Procedure Date: 11/14/2021 12:21 PM Date of : 1975 Admit Type: Outpatient Age: 46 Gender: Female Attending MD: Gavi Osorio M.D. Room: [facility] ENDOSCOPY ROOM 1 Note Status: Finalized [...] under direct vision. The Pediatric Colonoscope [id number] [id number] was introducedthrough the anus and advanced to [...] 12:21 PM Procedure Code(s): --- Professional --- 85033, Colonoscopy, flexible; diagnostic, including collection of specimen(s) by brushing or washing, when performed (separateprocedure) Diagnosis Code(s): --- Professional --- Z12.11, Encounter for screening for malignant neoplasm of colon K64.8, Other hemorrhoids CPT copyright 2020 [employer]. All rights reserved. The codes documented in this report are preliminary and upon medical manager reviewmay be revised to meet current compliance requirements. Recognized by the [employer] for promoting quality in endoscopy Gavi Osorio MD ENDOSCOPY PROCEDURES Final Result from Last 3 Months or Most Recently Relevant to Health Maintenance Insurance [facility] Advance Directives For more information, please contact: [phone] * Full Code (Latest Code Status on [...] 11:44 AM 11/14/2021 6:16 PM Care Teams Sack Sorter Relationship Specialty Start Date End Date Marcin Norwood PA [address] [place] [address] PCP - General Family Practice 09/03/19
[2024-07-22 08:22] VITALS: BP 103/49; PULSE 82; RESP 18; TEMP 36.4; O2SAT 100
--- NOTE | 2024-07-22 08:49 | ED_ITS ---
HPI - General Adult General Chief complaint: Skin/Abscess/Foreign Body Stated complaint: Left Leg Skin Problem Source: patient Mode of arrival: ambulatory Limitations: no limitations History of Present Illness HPI narrative: Patient presents for evaluation of left leg swelling, redness, and pain. Symptom onset 3 days ago. She has a history of cellulitis and DVT in that extremity. She does vape. No fever, chills, nausea, vomiting. She is diabetic. States home blood sugars typically run around 100. Related Data Home Medications ?Medication ?Instructions ?Recorded ?Confirmed ?Last Taken ?Type celecoxib 200 mg capsule (Celebrex) 200 mg PO DAILY 10/24/22 10/31/23 Unknown History citalopram 40 mg tablet 40 mg PO DAILY 10/24/22 10/31/23 Unknown History levothyroxine 112 mcg tablet 112 mcg PO DAILY 10/24/22 10/31/23 Unknown History polyethylene glycol 3350 17 17 g PO DAILY 10/24/22 10/31/23 Unknown History gram/dose oral powder (Miralax) pregabalin 150 mg capsule 150 mg PO BID 10/24/22 10/31/23 Unknown History atorvastatin 40 mg tablet mg PO 10/31/23 10/31/23 Unknown History dulaglutide 4.5 mg/0.5 mL mg subcut 10/31/23 10/31/23 Unknown History subcutaneous pen injector (Trulicity) hydrochlorothiazide 25 mg tablet mg PO 10/31/23 10/31/23 Unknown History losartan 50 mg tablet mg PO 10/31/23 10/31/23 Unknown History Allergies Allergy/AdvReac Type Severity Reaction Status Date / Time No Known Allergies Allergy Verified 07/22/24 08:26 Review of Systems Review of Systems: CONSTITUTIONAL: Denies fever, chills, or sweats. EYES: Denies visual changes, redness, or discharge. ENT: Denies rhinorrhea, congestion, sore throat, or otalgia. CARDIOVASCULAR: Denies chest pain, palpitations, or edema. RESPIRATORY: Denies cough or dyspnea. GASTROINTESTINAL: Denies abdominal pain, nausea, vomiting, or diarrhea. GENITOURINARY: Denies dysuria or hematuria. SKIN: Reports redness in left lower leg. Denies rash or itching. MUSCULOSKELETAL: Reports left leg swelling and pain NEUROLOGIC: Denies headache, numbness, dizziness, or weakness. PSYCHIATRIC: Denies anxiety or depression. PMFSH Past Medical History Medical History Joint pain seeing pain management Depression Diabetes Hypertension Hypothyroidism Screening mammogram, encounter for Surgical History Surgical History H/O tubal ligation (~2011) History of hysteroscopy suction D&C missed AB Delivery by section Hx of cholecystectomy History of tonsillectomy History of gynecological procedure (03/29/17) D&C Novasure Ablation Family History Family History Mother Diabetes mellitus Hypertension Grandparent Cerebrovascular accident paternal grandparent Social History Social History Smoking status: Never smoker Alcohol intake: never Substance use type: marijuana Other substance usage details: gummies ocassional Lack of Transportation: No Lack of Food: Never True Current Housing: I Have Housing Concerned About Future Housing: No Difficulty Paying Gas/Electric Bills: No Difficulty Paying for Meds: No Currently Unemployed: No Education: High School Diploma/GED Difficulty w/ Childcare or Family Care: No Living arrangements: other Additional living arrangements comments: Occupation/Education: unemployed Gender identity (if verbalized by the patient): Female Sexual Orientation (if Verbalized by the Patient): Straight or Heterosexual Exam Narrative: GENERAL: Well-appearing, well-nourished, and in no acute distress. HEAD: Normocephalic, atraumatic. EYES: PERRLA and EOMI. ENT: Nares clear, no rhinorrhea or epistaxis. Mucous membranes moist. Oropharynx without tonsillar hypertrophy exudate or other lesions. Bilateral TMs pearly guevara nonbulging NECK: Supple. No adenopathy or masses. No carotid bruits or JVD CHEST: Clear to auscultation. No respiratory distress. No wheezes rales or rhonchi HEART: Regular rate and rhythm. No murmur heard. Normal peripheral pulses. ABDOMEN: Soft, nontender, nondistended, normal active bowel sounds. EXTREMITIES: There is swelling in left lower leg. Left calf circumference is 58 cm and right calf is 54 cm. There is left posterior calf tenderness SKIN: There is erythema and warmth in left lower leg NEURO: No focal deficits. Alert and oriented x3. PSYCH: Normal mood and affect. Course Course Emergency Course: This is a 49-year-old female who presented for evaluation of left leg swelling, pain and redness. She has a history of DVT and cellulitis. Left calf circumference 4 cm greater than the right. She has tenderness in the left calf. I recommended she be transferred to the hospital for further evaluation to rule out DVT. She is agreeable with this pain. [facility]. I contacted the ER at [facility] and spoke with RN, Rowan. She indicated that Dr Bowers will accept pt for transfer. Pt transferred via private vehicle. Level of Care: Express Care Visit Vital Signs Vital signs: Vital Signs Temperature 36.4 C 07/22/24 08:22 Pulse Rate 82 07/22/24 08:22 Respiratory Rate 18 07/22/24 08:22 Blood Pressure 103/49 L 07/22/24 08:22 Pulse Oximetry 100 07/22/24 08:22 Oxygen Delivery Room Air 07/22/24 08:22 Temperature 36.4 C 07/22/24 08:22 Pulse Rate 82 07/22/24 08:22 Respiratory Rate 18 07/22/24 08:22 Blood Pressure 103/49 L 07/22/24 08:22 Pulse Oximetry 100 07/22/24 08:22 Oxygen Delivery Room Air 07/22/24 08:22 Medical Decision Making Vital Signs Vital Signs: Vital Signs Temperature 36.4 C 07/22/24 08:22 Pulse Rate 82 07/22/24 08:22 Respiratory Rate 18 07/22/24 08:22 Blood Pressure 103/49 L 07/22/24 08:22 Pulse Oximetry 100 07/22/24 08:22 Oxygen Delivery Room Air 07/22/24 08:22 Temperature 36.4 C 07/22/24 08:22 Pulse Rate 82 07/22/24 08:22 Respiratory Rate 18 07/22/24 08:22 Blood Pressure 103/49 L 07/22/24 08:22 Pulse Oximetry 100 07/22/24 08:22 Oxygen Delivery Room Air 07/22/24 08:22 Discharge Plan Discharge Clinical Impression: Left leg swelling, History of deep vein thrombosis Patient Disposition: Acute Care Hospital Condition: Stable Patient Language: Nepalese Prescriptions: No Action nystatin 100,000 unit/mL suspension 400,000 unit PO QID 14 Days Qty: 224 0RF Rx Instructions: administer 1/2 of dose in each side of the mouth celecoxib [Celebrex] 200 mg capsule 200 mg PO DAILY citalopram 40 mg tablet 40 mg PO DAILY polyethylene glycol 3350 [Miralax] 17 gram/dose powder 17 g PO DAILY levothyroxine 112 mcg tablet 112 mcg PO DAILY pregabalin 150 mg capsule 150 mg PO BID Trulicity 4.5 mg/0.5 mL pen injector subcut hydrochlorothiazide 25 mg tablet PO atorvastatin 40 mg tablet PO losartan 50 mg tablet PO clobetasol 0.05 % ointment 1 applic topical BID 14 Days Qty: 60 5RF Rx Instructions: then use once daily for 2 weeks, then every other day for 2 weeks, then continue using at least 2-4x/month Follow-up/Referrals: Cuco,ELADIO Scruggs [Primary Care Provider] - Time of Disposition: 08:47
== END 2024-07-22 08:49 | disposition short-term general hospital (02) ==
PROVIDERS: Emergency Provider Nurse Practitioner; PCP Physician Assistant
DX: R22.42 Localized swelling, mass and lump, left lower limb (principal); Z86.718 Personal history of other venous thrombosis and embolism; F12.90 Cannabis use, unspecified, uncomplicated; E11.9 Type 2 diabetes mellitus without complications; I10 Essential (primary) hypertension; E03.9 Hypothyroidism, unspecified; F32.A Depression, unspecified
CPT/HCPCS: 99212; G0463